=== PATIENT | male | born 1955 | race Caucasian/White ===

== ENCOUNTER 2018-09-09 20:47 | Inpatient (IN) | payer MEDICARE, OTHER ==
[2018-09-09] MEDS ORDERED: APAP/Codeine 300 mg/30 mg Tab PO STA (21:08)
--- NOTE | 2018-09-09 21:08 | ED Physician Chart ---
ED Chief Complaint/HPI - Patient Information Date Seen:: 09/09/18 Time Seen:: 20:40 Chief Complaint:: Agitation History of Present Illness:: onset x 3 days of agitation and hostile behavior; no report of trauma, SIs, H/As , S/T, neck pain, C/P, SOB, Abd. Pain, A/N/V/D/C, fever, chills, or urinary s/s Allergies:: Allergies Allergy/AdvReac Type Severity Reaction Status Date / Time ciprofloxacin [From Cipro] Allergy Verified 09/09/18 20:57 fluphenazine Allergy Verified 09/09/18 20:57 latex Allergy Verified 09/09/18 20:57 Historian:: Patient, EMS Review:: Nurse's Note Reviewed, Old Chart Reviewed, EMS run form Reviewed ED Review of Systems - Review of Systems General/Constitutional: No fever, No chills, No weight loss, No weakness, No diaphoresis, No edema, No loss of appetite Skin: No skin lesions, No rash, No bruising Head: No headache, No light-headedness Eyes: No loss of vision, No pain, No diplopia ENT: No earache, No nasal drainage, No sore throat, No tinnitus Neck: No neck pain, No swelling, No thyromegaly, No stiffness, No mass noted Cardio Vascular: No chest pain, No palpitations, No PND, No orthopnea, No edema Pulmonary: No SOB, No cough, No sputum, No wheezing GI: No nausea, No vomiting, No diarrhea, No pain, No melena, No hematochezia, No constipation, No hematemesis G/U: No dysuria, No frequency, No hematuria, No nacturia Musculoskeletal: No bone or joint pain, No back pain, No muscle pain Endocrine: No polyuria, No polydipsia Psychiatric: Prior psych history, Depression, Anxiety, No suicidal ideation, No homicidal ideation, No auditory hallucination, No visual hallucination Hematopoietic: No bruising, No lymphadenopathy Allergic/Immuno: No urticaria, No angioedema Neurological: No syncope, No focal symptoms, No weakness, No paresthesia, No headache, No seizure, No dizziness, No confusion, No vertigo ED Past Medical History - Past Medical History Obtainable: Yes Past Medical History: HTN, DM, Asthma/COPD, Dyslipidemia Family History: HTN Social History: Non Smoker, No Alcohol, No Drug Use, Single, Care Facility Surgical History: other (BKA) Psychiatricy History: Depression, Bipolar Medication: Reviewed Family Medical History - Family Member Mother History Unknown: Yes ED Physical Exam - Physical Examination General/Constitutional: Awake, Well-developed, well-nourished, Alert, No distress, GCS 15, Non-toxic appearing, Ambulatory Head: Atraumatic Eyes: Lids, conjuctiva normal, PERRL, EOMI Skin: Nl inspection, No rash, No skin lesions, No ecchymosis, Well hydrated, No lymphadenopathy ENMT: External ears, nose nl, TM canals nl, Nasal exam nl, Lips, teeth, gums nl , Oropharynx nl, Tonsils nl Neck: Nontender, Full ROM w/o pain, No JVD, No nuchal rigidity, No bruit, No mass, No stridor Respiratory: Nl effort/Exclusion, Clear to Auscultation, No Wheeze/Rhonchi/Rales Cardio Vascular: RRR, No murmur, gallop, rubs, NL S1 S2, Carotid/Femoral/Distal pulses equal bilaterally GI: No tenderness/rebounding/guarding, No organomegaly, No hernia, Normal BS's, Nondistended, No mass/bruits, No McBurney tenderness, Rectum exam nl : No CVA tenderness Extremities: No tenderness or effusion, Full ROM, normal strength in all extremities, No edema, Normal digits & nails Other Extremities comments:: Bilateral BKAs Neuro/Psych: Alert/oriented, DTR's symmetric, Normal sensory exam, Normal motor strength, Judgement/insight normal, Mood normal, Normal gait, No focal deficits Other Neuro/Psych comments:: + Psychomotor Agitation; no SIs; Mood/Affect: Labile Misc: Normal back, No paraspinal tenderness ED Labs/Radiology/EKG Results - Lab Results Comments:: Reviewed - EKG Interpretations EKG Time:: 21:26 Rate & Rhythm: 69; NSR Comments:: LVH; non-specific st-t changes ED Septic Shock - . Is Septic Shock (SBP<90, OR Lactate>4 mmol\L) present?: No ED Reassessment (Disposition) - Reassessment Reassessment Condition:: Improved - Diagnosis Diagnosis:: Agitation; Medical Clearance; Anemia; Psychosis; Dehydration; Bipolar Disorder - Aftercare/Follow up Instructions Aftercare/Follow-Up Instructions:: Counseled pt regarding lab results/diagnosis & need follow up, Counseled pt & family regarding lab results/diagnosis & need follow up - Patient Disposition Discharge/Transfer:: Acute Care w/in this hosp Admitted to:: [facility] Condition at Disposition:: Stable, Improved
[2018-09-09] MEDS ORDERED: APAP/Codeine 300 mg/30 mg Tab ONE (21:20)
[2018-09-09 21:35] LABS: HEMATOCRIT 30.3 % (41.0-60); HEMOGLOBIN 10.4 gm/dL (12-16); MEAN CELL VOLUME 100.4 fl (80-99); RED BLOOD COUNT 3.02 Mil/cmm (4.30-5.70)
[2018-09-09 21:36] LABS: % BASOPHILS 0.9 % (0.0-2.0); % EOSINOPHILS 4.4 % (0.0-5.0); % LYMPHOCYTES 31.3 % (20.0-50.0); % MONOCYTES 8.8 % (2.0-10.0); % NEUTROPHILS 54.6 % (40.0-80.0); MEAN CORPUSCULAR HEMOGLOBIN 34.4 pg (26.0-30.0); MEAN CORPUSCULAR HGB CONC 34.3 pg (28.0-36.0); MEAN PLATELET VOLUME 8.5 fl; PLATELET COUNT 200 Th/cmm (150-400); RED CELL DISTRIBUTION WIDTH 12.9 % (11.5-20.0)
[2018-09-09 21:38] LABS: ACETAMINOPHEN < 10.0 ug/mL (10.0-30.0); ALB/GLOB RATIO 1.4 (1.0-1.8); ALBUMIN 3.8 gm/dL (4.2-5.5); ALKALINE PHOSPHATASE 77 U/L (34-104); ANION GAP 11.4 (7.0-16.0); BILIRUBIN,TOTAL 0.3 mg/dL (0.3-1.0); BUN - UREA NITROGEN 50 mg/dL (7-25); CALCIUM SERUM 9.3 mg/dL (8.6-10.3); CARBON DIOXIDE 26.7 mEq/L (21.0-31.0); CHLORIDE 107 mEq/L (98-107); CHOLESTEROL 111 mg/dL (<200); CREATININE - SERUM 1.5 mg/dL (0.7-1.3); GFR AFRICAN-AMERICAN > 60.0 ml/min (>90); GFR NON AFRICAN-AMERICAN 50.1 ml/min; GLUCOSE 85 mg/dL (70-105); HDL -HIGH DENSITY LIPOPROTEIN 46 mg/dL (23-92); POTASSIUM SERUM 4.1 mEq/L (3.5-5.1); SALICYLATES (ASPIRIN) < 25.0 mg/L (30.0-100.0); SGOT 21 U/L (13-39); SGPT/ALT 25 U/L (7-52); SODIUM SERUM 141 mEq/L (136-145); TOTAL PROTEIN,SERUM 6.6 gm/dL (6.0-8.3); TRIGLYCERIDES 105 mg/dL (<150)
[2018-09-09 23:05] LABS: URINE SOURCE CLEAN C
[2018-09-09 23:09] LABS: URINE BILIRUBIN NEGATIVE (NEGATIVE); URINE BLOOD NEGATIVE (NEGATIVE); URINE GLUCOSE (UA) NEGATIVE (NEGATIVE); URINE KETONE NEGATIVE (NEGATIVE); URINE LEUKOCYTE ESTERASE NEGATIVE (NEGATIVE); URINE NITRATE NEGATIVE (NEGATIVE); URINE PH 7.5 (4.6 - 8.0); URINE PROTEIN 100 mg/dL (NEGATIVE); URINE UROBILINOGEN 0.2 E.U./dL (0.2 - 1.0)
[2018-09-09 23:17] LABS: URINE CLARITY CLEAR (CLEAR); URINE COLOR YELLOW
[2018-09-09 23:18] LABS: AMPHETAMINE URINE NEGATIVE (NEGATIVE); BARBITURATES URINE NEGATIVE (NEGATIVE); BENZODIAZEPINES QUAL URINE NEGATIVE (NEGATIVE); CANNABINOID THC POSITIVE (NEGATIVE); COCAINE METABOLITE QUAL URINE NEGATIVE (NEGATIVE); METHADONE URINE NEGATIVE (NEGATIVE); METHAMPHETAMINES QUAL URINE NEGATIVE (NEGATIVE); OPIATES (MORPHINE) QUAL. URINE NEGATIVE (NEGATIVE); PHENCYCLIDINE (PCP) URINE NEGATIVE (NEGATIVE); TRICYCLICS (TCA) QUAL. URINE NEGATIVE (NEGATIVE)
[2018-09-09 23:20] LABS: URINE BACTERIA NONE SEEN /hpf (NONE SEEN); URINE EPITHELIAL CELLS RARE /lpf (FEW); URINE MICROSCOPIC INDICATED? YES; URINE RBC NONE SEEN /hpf (0-5); URINE WBC 0-2 /hpf (0-5)
[2018-09-10 01:43] VITALS: BP 121/93
[2018-09-10] MEDS ORDERED: Magnesium Hydroxide (MOM) 30 mL UDC GT PRN (03:27)
[2018-09-10] MEDS ORDERED: Fleet Enema 135 mL RC PRN (03:27)
[2018-09-10] MEDS ORDERED: Non-Formulary Item 1 EA (Ferrous Sulfate [Ferosul] 7.5 ML) GT SCH (09:00)
[2018-09-10] MEDS ORDERED: DICLOFENAC 0.1% LEFT EYE SCH (09:00)
[2018-09-10] MEDS: Multivitamin w/ Minerals Tab GT SCH (09:31)
[2018-09-10] MEDS: Saline 0.65% Nasal Spray NS SCH ×2 (09:32→17:06)
[2018-09-10] MEDS: Prednisolone 1% Ophth Susp 5 mL Bottle LEFT EYE SCH ×4 (11:00→21:33)
--- NOTE | 2018-09-10 12:19 | Psychiatric Evaluation ---
DATE OF SERVICE: 09/10/2018 IDENTIFYING DATA: The patient is a 63-year-old male, resident of [facility]. Information obtained by directly interviewing the patient as well as reviewing the admission papers and they are reliable. JUSTIFICATION OF HOSPITALIZATION: The patient is admitted here on a voluntary basis in view of his acute agitation and aggressive behavior. CHIEF COMPLAINT: "I don't care." HISTORY OF PRESENT ILLNESS: This patient is resident of the [facility] and is reported to have been diagnosed to have bipolar disorder and has been lately having acute mood swings and has been screaming and yelling and has been verbally abusive towards the staff members and the patient could not be contained at a lower level of care and hence the patient has been referred over here for further stabilization, tried to interview the patient. The patient has been screaming and yelling and the patient is reported to have multiple medical problems such as diabetes mellitus, hypertension, bilateral below-knee amputation and COPD. The patient during the interview has been stating that he is not able to sleep and people are bothering him and he needs to be left alone. PAST PSYCHIATRIC HISTORY: Details are not known. MEDICAL HISTORY: Physical examination is requested to be done by Dr. Baeza. SUBSTANCE ABUSE HISTORY: None. PHYSICAL OR SEXUAL ABUSE HISTORY: None. LEGAL PROBLEMS: None at this time. STRENGTH AND ASSETS: The patient is admitted over here for stabilization. MENTAL STATUS EXAMINATION: The patient is a 63-year-old male, looking his stated age, resting in bed, superficially cooperative. Eye contact is poor. Mood is noted to be irritable. Affect is constricted. Insight and judgment at this time are very much impaired. Impulse control is very poor. Coping skills are noted to very poor. The patient is paranoid at this time and having acute mood swings. The patient is screaming and yelling. The patient is reported to not be contained at a lower level of care and hence the patient has to be referred over here for stabilization. Past psychiatric history is reported to have been significant for hospitalization, but the patient is not giving any details. The patient is alert and oriented to time, place, person and situation. The patient's insight and judgment, however, are noted to be very much impaired. DIAGNOSTIC IMPRESSION: AXIS I: Bipolar disorder mixed with psychotic symptoms. AXIS II: None. AXIS III: As per Dr. Baeza. IMMEDIATE TREATMENT PLAN: The patient is going to be observed on inpatient unit, provided with supportive psychotherapy. The patient is going to be closely monitored and encouraged to participate in the groups and verbalize the concerns. Once stabilized, the patient is going to be discharged to the [facility] to be followed up on an outpatient basis. [facility]# [id number]
--- NOTE | 2018-09-10 14:17 | History and Physical ---
History of Present Illness - HPI Chief Complaint: agitation HPI: This is a 63-year old male who is a [facility] resident admitted to [facility] due to agitation. Vital Signs: Last Vital Signs Temp 97.6 F 09/10/18 06:58 Pulse 66 09/10/18 09:30 Resp 20 09/10/18 06:58 BP 139/71 09/10/18 09:30 Pulse Ox 98 09/10/18 06:58 Past Medical History Other History: HTN, DM, asthma, COPD, and dyslipidemia - Past Surgical History Past Surgical History: Other (b bka) Family Medical History - Family Member Mother History Unknown: Yes Social History Smoke: No Alcohol: None Drugs: None Lives: Retirement - Medications Home Medications: Home Medication Medication Instructions Recorded Type Amlodipine Besylate 5 mg GT DAILY 09/09/18 History Bisacodyl [Dulcolax 10 Mg Supp] 10 mg RC DAILY PRN 09/09/18 History Citalopram Hydrobromide 10 mg GT DAILY 09/09/18 History [Citalopram HBr] Diphenhydramine HCL [Benadryl] 50 mg GT HS PRN 09/09/18 History Ferrous Sulfate [Ferosul] 7.5 ml GT DAILY 09/09/18 History Fleet Enema 135 ml RC DAILY PRN 09/09/18 History Magnesium Hydroxide [Milk of 30 ml GT HS PRN 09/09/18 History Magnesia] Melatonin 5 mg GT HS 09/09/18 History Mirtazapine 7.5 mg GT HS 09/09/18 History Multivitamin w/ Minerals 1 tab GT DAILY 09/09/18 History [Theragran M] Nepafenac [Ilevro] 1 drop LEFT EYE DAILY 09/09/18 History Ofloxacin 1 drop LEFT EYE QID 09/09/18 History Omeprazole Magnesium [Prilosec Otc] 20 mg GT QAM 09/09/18 History Polyvinyl Alcohol [Artificial 2 drop EACH EYE Q6H PRN 09/09/18 History Tears] Prednisolone Acetate/Pf 1 drop LEFT EYE QID 09/09/18 History [Prednisolone Acet 1% Eye Drop] Sodium Chloride [[place] 2 spray NS BID 09/09/18 History Pharmacy Saline Nasal [place] 44 ] risperiDONE [Risperdal] 1 mg GT BID 09/09/18 History - Allergies Allergies/Adverse Reactions: Allergies Allergy/AdvReac Type Severity Reaction Status Date / Time ciprofloxacin [From Cipro] Allergy Verified 09/09/18 20:57 fluphenazine Allergy Verified 09/09/18 20:57 latex Allergy Verified 09/09/18 20:57 Review of Systems - Review of Systems Constitutional: Report: No Significant Eyes: Report: No Significant Respiratory: Report: No Significant Cardiovascular: Report: No Significant Neurological: Report: No Significant Physical Exam - Physical Exam HEENT: Report: Ears Nose Throat within normal limits Neck: Report: Within normal limits Cardiovascular Systems: Report: +s1/s2 noted, Regular, Rate and Rhythm Respiratory: Report: Breath Sounds are within normal limits, Clear to Auscultation of lung garcia Abdomen: Report: Non-tender to palpation Skin: Report: Warm, Dry Neuro/Psych: Report: Depressed affect - Lab Results All Lab Results last 24 hours: Laboratory Results - last 24 hr 09/09/18 09/09/18 09/09/18 21:15 21:15 21:15 WBC 5.0 RBC 3.02 L Hgb 10.4 L Hct 30.3 L MCV 100.4 H MCH 34.4 H MCHC Differential 34.3 RDW 12.9 Plt Count 200 MPV 8.5 Neutrophils % 54.6 Lymphocytes % 31.3 Monocytes % 8.8 Eosinophils % 4.4 Basophils % 0.9 Sodium 141 Potassium 4.1 Chloride 107 Carbon Dioxide 26.7 Anion Gap 11.4 BUN 50 H Creatinine 1.5 H Est GFR ( Amer) > 60.0 Est GFR (Non-Af Amer) 50.1 BUN/Creatinine Ratio 33.3 Glucose 85 Calcium 9.3 Total Bilirubin 0.3 AST 21 ALT 25 Alkaline Phosphatase 77 Troponin I Total Protein 6.6 Albumin 3.8 L Globulin 2.8 Albumin/Globulin Ratio 1.4 Triglycerides 105 Cholesterol 111 LDL Cholesterol Direct 54 L HDL Cholesterol 46 TSH 1.94 Urine Source Urine Color Urine Clarity Urine pH Ur Specific [place] Urine Protein Urine Glucose (UA) Urine Ketones Urine Blood Urine Nitrate Urine Bilirubin Urine Urobilinogen Ur Leukocyte Esterase Urine RBC Urine WBC Ur Epithelial Cells Urine Bacteria Salicylates < 25.0 L Urine Opiates Screen Urine Methadone Screen Acetaminophen < 10.0 L Ur Barbiturates Screen Ur Tricyclics Screen Ur Phencyclidine Scrn Amphetamines Screen U Methamphetamines Scrn U Benzodiazepines Scrn U Cocaine Metab Screen U Cannabinoids Screen Ethyl Alcohol < 10 09/09/18 09/09/18 09/09/18 21:15 22:30 22:30 WBC RBC Hgb Hct MCV MCH MCHC Differential RDW Plt Count MPV Neutrophils % Lymphocytes % Monocytes % Eosinophils % Basophils % Sodium Potassium Chloride Carbon Dioxide Anion Gap BUN Creatinine Est GFR ( Amer) Est GFR (Non-Af Amer) BUN/Creatinine Ratio Glucose Calcium Total Bilirubin AST ALT Alkaline Phosphatase Troponin I 0.02 Total Protein Albumin Globulin Albumin/Globulin Ratio Triglycerides Cholesterol LDL Cholesterol Direct HDL Cholesterol TSH Urine Source CLEAN C Urine Color YELLOW Urine Clarity CLEAR Urine pH 7.5 Ur Specific [place] 1.020 Urine Protein 100 H Urine Glucose (UA) NEGATIVE Urine Ketones NEGATIVE Urine Blood NEGATIVE Urine Nitrate NEGATIVE Urine Bilirubin NEGATIVE Urine Urobilinogen 0.2 Ur Leukocyte Esterase NEGATIVE Urine RBC NONE SEEN Urine WBC 0-2 Ur Epithelial Cells RARE Urine Bacteria NONE SEEN Salicylates Urine Opiates Screen NEGATIVE Urine Methadone Screen NEGATIVE Acetaminophen Ur Barbiturates Screen NEGATIVE Ur Tricyclics Screen NEGATIVE Ur Phencyclidine Scrn NEGATIVE Amphetamines Screen NEGATIVE U Methamphetamines Scrn NEGATIVE U Benzodiazepines Scrn NEGATIVE U Cocaine Metab Screen NEGATIVE U Cannabinoids Screen POSITIVE H Ethyl Alcohol - Assessment Assessment: HTN DM asthma COPD b bka dyslipidemia - Plan Plan: low fat diet monitor glucose closely fall precautions continue current orders
[2018-09-10] MEDS ORDERED: Non-Formulary Item 1 EA (Melatonin [Melatonin] 5 MG) GT SCH (21:00)
[2018-09-11] MEDS: Pantoprazole 40 mg/Packet GT SCH (06:59)
[2018-09-11] MEDS: Ferrous Sulfate 300 MG/5 ML UDC GT SCH (10:13)
[2018-09-11] MEDS: Multivitamin w/ Minerals Tab GT SCH (10:14)
[2018-09-11] MEDS: Prednisolone 1% Ophth Susp 5 mL Bottle LEFT EYE SCH ×4 (10:18→20:29)
[2018-09-11] MEDS: Saline 0.65% Nasal Spray NS SCH ×2 (10:19→17:05)
--- NOTE | 2018-09-11 13:48 | Internal Medicine Prog Note ---
Internal Medicine Subjective - Subjective Service Date: 09/11/18 Patient seen and examined:: with staff Patient is:: awake, verbal Per staff patient has:: tolerating meds Internal Medicine Objective - Results Result Diagrams: 09/09/18 21:15 09/09/18 21:15 Recent Labs: Laboratory Last Values WBC 5.0 Th/cmm (4.8-10.8) 09/09/18 21:15 RBC 3.02 Mil/cmm (4.30-5.70) L 09/09/18 21:15 Hgb 10.4 gm/dL (12-16) L 09/09/18 21:15 Hct 30.3 % (41.0-60) L 09/09/18 21:15 MCV 100.4 fl (80-99) H 09/09/18 21:15 MCH 34.4 pg (26.0-30.0) H 09/09/18 21:15 MCHC Differential 34.3 pg (28.0-36.0) 09/09/18 21:15 RDW 12.9 % (11.5-20.0) 09/09/18 21:15 Plt Count 200 Th/cmm (150-400) 09/09/18 21:15 MPV 8.5 fl 09/09/18 21:15 Neutrophils % 54.6 % (40.0-80.0) 09/09/18 21:15 Lymphocytes % 31.3 % (20.0-50.0) 09/09/18 21:15 Monocytes % 8.8 % (2.0-10.0) 09/09/18 21:15 Eosinophils % 4.4 % (0.0-5.0) 09/09/18 21:15 Basophils % 0.9 % (0.0-2.0) 09/09/18 21:15 Sodium 141 mEq/L (136-145) 09/09/18 21:15 Potassium 4.1 mEq/L (3.5-5.1) 09/09/18 21:15 Chloride 107 mEq/L (98-107) 09/09/18 21:15 Carbon Dioxide 26.7 mEq/L (21.0-31.0) 09/09/18 21:15 Anion Gap 11.4 (7.0-16.0) 09/09/18 21:15 BUN 50 mg/dL (7-25) H 09/09/18 21:15 Creatinine 1.5 mg/dL (0.7-1.3) H 09/09/18 21:15 Est GFR ( Amer) > 60.0 ml/min (>90) 09/09/18 21:15 Est GFR (Non-Af Amer) 50.1 ml/min 09/09/18 21:15 BUN/Creatinine Ratio 33.3 09/09/18 21:15 Glucose 85 mg/dL (70-105) 09/09/18 21:15 Calcium 9.3 mg/dL (8.6-10.3) 09/09/18 21:15 Total Bilirubin 0.3 mg/dL (0.3-1.0) 09/09/18 21:15 AST 21 U/L (13-39) 09/09/18 21:15 ALT 25 U/L (7-52) 09/09/18 21:15 Alkaline Phosphatase 77 U/L (34-104) 09/09/18 21:15 Troponin I 0.02 ng/mL (0.01-0.05) 09/09/18 21:15 Total Protein 6.6 gm/dL (6.0-8.3) 09/09/18 21:15 Albumin 3.8 gm/dL (4.2-5.5) L 09/09/18 21:15 Globulin 2.8 gm/dL 09/09/18 21:15 Albumin/Globulin Ratio 1.4 (1.0-1.8) 09/09/18 21:15 Triglycerides 105 mg/dL (<150) 09/09/18 21:15 Cholesterol 111 mg/dL (<200) 09/09/18 21:15 LDL Cholesterol Direct 54 mg/dL (75-193) L 09/09/18 21:15 HDL Cholesterol 46 mg/dL (23-92) 09/09/18 21:15 TSH 1.94 uIU/ml (0.34-5.60) 09/09/18 21:15 Urine Source CLEAN C 09/09/18 22:30 Urine Color YELLOW 09/09/18 22:30 Urine Clarity CLEAR (CLEAR) 09/09/18 22:30 Urine pH 7.5 (4.6 - 8.0) 09/09/18 22:30 Ur Specific [place] 1.020 (1.005-1.030) 09/09/18 22:30 Urine Protein 100 mg/dL (NEGATIVE) H 09/09/18 22:30 Urine Glucose (UA) NEGATIVE mg/dL (NEGATIVE) 09/09/18 22:30 Urine Ketones NEGATIVE mg/dL (NEGATIVE) 09/09/18 22:30 Urine Blood NEGATIVE (NEGATIVE) 09/09/18 22:30 Urine Nitrate NEGATIVE (NEGATIVE) 09/09/18 22: Urine Bilirubin NEGATIVE (NEGATIVE) 09/09/18 22:30 Urine Urobilinogen 0.2 E.U./dL (0.2 - 1.0) 09/09/18 22:30 Ur Leukocyte Esterase NEGATIVE (NEGATIVE) 09/09/18: Urine RBC NONE SEEN /hpf (0-5) 09/09/18 22:30 Urine WBC 0-2 /hpf (0-5) 09/09/18 22:30 Ur Epithelial Cells RARE /lpf (FEW) 09/09/18 22:30 Urine Bacteria NONE SEEN /hpf (NONE SEEN) 09/09/18 22:30 Salicylates < 25.0 mg/L (30.0-100.0) L 09/09/18 21:15 Urine Opiates Screen NEGATIVE (NEGATIVE) 09/09/18 22:30 Urine Methadone Screen NEGATIVE (NEGATIVE) 09/09/18 22:30 Acetaminophen < 10.0 ug/mL (10.0-30.0) L 09/09/18 21:15 Ur Barbiturates Screen NEGATIVE (NEGATIVE) 09/09/18 22:30 Ur Tricyclics Screen NEGATIVE (NEGATIVE) 09/09/18 22:30 Ur Phencyclidine Scrn NEGATIVE (NEGATIVE) 09/09/18 22:30 Amphetamines Screen NEGATIVE (NEGATIVE) 09/09/18 22:30 U Methamphetamines Scrn NEGATIVE (NEGATIVE) 09/09/18 22:30 U Benzodiazepines Scrn NEGATIVE (NEGATIVE) 09/09/18 22:30 U Cocaine Metab Screen NEGATIVE (NEGATIVE) 09/09/18 22:30 U Cannabinoids Screen POSITIVE (NEGATIVE) H 09/09/18 22:30 Ethyl Alcohol < 10 mg/dL (0-10) 09/09/18 21:15 - Physical Exam Vitals and I&O: Vital Signs Temp 98.2 F 09/10/18 20:21 Pulse 76 09/11/18 10:16 Resp 20 09/11/18 08:00 BP 126/76 09/11/18 10:16 Pulse Ox 97 09/10/18 20:21 Intake & Output 09/10/18 09/11/18 09/11/18 18:59 06:59 18:59 Intake Total 1100 480 Output Total 1 Balance 1100 479 Intake: Oral 1100 480 Output: Urine/Stool Mix 1 Other: # Voids 4 1 # Bowel Movements 1 1 Active Medications: Current Medications Acetaminophen (Tylenol 650mg/20.3ml Suspension) 650 mg GT Q4HR PRN PRN Reason: Mild Pain 1-3/ Temp above 100 Stop: 11/09/18 01:49 Last Admin: 09/11/18 07:06 Dose: 650 mg Amlodipine Besylate (Norvasc) 5 mg GT DAILY [facility] Stop: 11/09/18 08:59 Last Admin: 09/11/18 10:16 Dose: 5 mg Artificial Tears (Artificial Tears Ophth Soln) 2 drop EACH EYE Q6H PRN PRN Reason: DRY EYES Stop: 11/09/18 03:26 Bisacodyl (Dulcolax 10 Mg Supp) 10 mg RC DAILY PRN PRN Reason: Constipation Stop: 11/09/18 03:26 Ciprofloxacin (Cipro 0.3% Ophth Soln) 1 drop LEFT EYE QID [facility] Stop: 09/14/19 23:59 Last Admin: 09/11/18 10:18 Dose: 1 drop Citalopram Hydrobromide (Celexa) 10 mg GT DAILY [facility] Stop: 11/09/18 10:59 Last Admin: 09/11/18 10:13 Dose: 10 mg Diclofenac Sodium (Voltaren) 1 drop LEFT EYE QID [facility] Stop: 09/14/19 23:59 Diphenhydramine HCl (Benadryl) 50 mg GT HS PRN PRN Reason: Itching Stop: 11/09/18 03:26 Ferrous Sulfate (Iron) 300 mg GT DAILY [facility] Stop: 11/10/18 08:59 Last Admin: 09/11/18 10:13 Dose: 300 mg Lorazepam (Ativan) 0.5 mg GT Q4HR PRN; Protocol PRN Reason: Anxiety Stop: 10/10/18 01:49 Magnesium Hydroxide (Milk Of Magnesia) 30 ml GT HS PRN PRN Reason: Constipation Stop: 11/09/18 03:26 Mirtazapine (Remeron) 7.5 mg GT HS [facility] Stop: 11/09/18 20:59 Last Admin: 09/10/18 21:18 Dose: 7.5 mg Pantoprazole Sodium (Protonix) 40 mg GT QDAC [facility] Stop: 11/10/18 07:29 Last Admin: 09/11/18 06:59 Dose: 40 mg Prednisolone Acetate (Pred Forte 1% Ophth Susp) 1 drop LEFT EYE QID [facility] Stop: 11/09/18 08:59 Last Admin: 09/11/18 10:18 Dose: 1 drop Risperidone (Risperdal) 1 mg GT BID [facility]; Protocol Stop: 11/09/18 08:59 Last Admin: 09/11/18 10:14 Dose: 1 mg Sodium Chloride ([place] Nasal [place]) 2 spr NS BID [facility] Stop: 11/09/18 08:59 Last Admin: 09/11/18 10:19 Dose: 2 spr Sodium Phosphate (Fleet Enema) 135 ml RC DAILY PRN PRN Reason: Constipation Stop: 11/09/18 03:26 Zolpidem Tartrate (Ambien) 5 mg GT HS PRN PRN Reason: Insomnia Stop: 11/09/18 01:49 Last Admin: 09/10/18 21:18 Dose: 5 mg General: alert HEENT: NC/AT, PERRLA Neck: Supple Lungs: CTAB Cardiovascular: RRR Abdomen: soft, non-tender, non-distended Neurological: alert - Procedures Procedures: Procedures Procedure Code Date STELLA MUSC/FASCIA 20 SQ CM/< 98278 08/27/13 OTHER FASCIECTOMY 83.44 08/27/13 Internal Medicine Assmt/Plan - Assessment Assessment: HTN DM asthma COPD b bka dyslipidemia - Plan Plan: low fat diet monitor glucose closely fall precautions continue current orders
[2018-09-11] MEDS: Polyvinyl Alcohol Ophth Soln 15 mL Bottle EACH EYE PRN (17:12)
--- NOTE | 2018-09-11 20:22 | Consultation ---
DATE OF CONSULTATION: 09/11/2018 REFERRING PHYSICIAN: Patricia Pringle M.D. TYPE OF CONSULTATION: Psychology. HISTORY OF PRESENT ILLNESS: The patient is a 63-year-old male. The patient is a resident of [facility]. The following is by record review and by the patient's self report. The patient is being admitted due to acute agitation and aggressive behavior. The staff at the patient's facility report that he has been having acute mood swings with screaming and yelling episodes as well as being verbally abusive towards the staff. The patient was unable to be contained in a lower level of care and his behavior had become uncontrollable. Therefore, the patient was transferred here for stabilization. The patient at the time of the clinical interview stated he is not experiencing any suicidal ideation, plan or intention and that he did not care to continue to answer any other clinical interview questions. PAST MEDICAL HISTORY: Please see history and physical by Dr. Baeza. PAST PSYCHIATRIC HISTORY: According to record review, the patient has a history of bipolar disorder. The patient is under the care of a psychiatrist at his placement. SUBSTANCE ABUSE HISTORY: The patient did not answer these questions. PSYCHOSOCIAL HISTORY: The patient did not answer questions about occupational or educational history or mandaeism affiliation. The patient did not answer questions about current legal problems or history of physical or sexual abuse. The patient did not respond to the questions about marital status, family relationships, family involvement, or others in his care. MENTAL STATUS EXAMINATION: The patient appears to be his stated age. The patient's attitude is superficially cooperative. Eye contact is poor. Speech is loud, pressured. Mood is irritable. Affect is constricted. Thought process shows to be concrete and argumentative. The patient denied any suicidal ideation, plan, or intention. The patient has been having acute mood swings as well as out of control behavior. There is some evidence of paranoid ideation. The patient did not answer questions about experiencing auditory or visual hallucinations. Impulse control is impaired. Concentration is poor. Sensorium is alert and oriented to person and place. The patient did not participate in the memory assessment. The patient did not participate in any interpretation of proverbs. Insight is impaired. Judgment is impaired. DIAGNOSTIC IMPRESSION: AXIS I: History of bipolar disorder mixed with psychotic symptoms. AXIS II: Deferred. AXIS III: Per Dr. Baeza. TREATMENT PLAN: The patient has been seen by Dr. Pringle for psychiatric evaluation and for the management of the patient's psychotropic medications. We will provide supportive psychotherapy to include reality orientation, differentiation, and integration. We will provide de-escalation and limit setting as well as boundary awareness and definitions. We will provide stress management to assist the patient in increasing his frustration tolerance. We will encourage the patient to be able to demonstrate emotional and self-regulation prior to his discharge. We will provide coping strategies for phase of life issues as well as for chronic severe mental illness. We will provide motivational enhancement for the patient to become compliant and stay compliant with all aspects of his care and treatment. Thank you, Dr. Pringle, for this consult and the opportunity to participate in this patient's care. JOB# [id number] JOSE ALEJANDRO
[2018-09-12] MEDS: Pantoprazole 40 mg/Packet GT SCH (06:46)
[2018-09-12] MEDS: Ferrous Sulfate 300 MG/5 ML UDC GT SCH (08:26)
[2018-09-12] MEDS: KETOROLAC 0.5% LEFT EYE SCH ×4 (08:27→20:29)
[2018-09-12] MEDS: Multivitamin w/ Minerals Tab GT SCH (08:27)
[2018-09-12] MEDS: OPTH LEFT EYE SCH ×4 (08:27→20:29)
[2018-09-12] MEDS: Prednisolone 1% Ophth Susp 5 mL Bottle LEFT EYE SCH ×4 (08:28→20:30)
[2018-09-12] MEDS: Saline 0.65% Nasal Spray NS SCH ×2 (08:28→16:41)
--- NOTE | 2018-09-12 09:33 | Progress Notes ---
DATE: 09/11/2018 PSYCHIATRIC PROGRESS NOTE SUBJECTIVE: Staff was spoken to. The patient is interviewed. Mood is noted to be irritable. Affect is constricted. Insight 9and judgment, at this time, are noted to be still impaired. Impulse control is noted to be poor. Coping skills are also noted to be very poor. The patient is demanding that he should not be in the hospital and he should be discharged. Coping skills are noted to be extremely poor. The patient tends to scream and yell when he does not get his way. ASSESSMENT: The patient is still grossly psychotic. PLAN: Continue the patient with supportive therapy. I encouraged the patient to verbalize the concerns rather than to act out. JOB# [id number]
--- NOTE | 2018-09-12 14:42 | Internal Medicine Prog Note ---
Internal Medicine Subjective - Subjective Service Date: 09/12/18 Patient is:: awake, verbal Per staff patient has:: tolerating meds Internal Medicine Objective - Results Result Diagrams: 09/09/18 21:15 09/09/18 21:15 Recent Labs: Laboratory Last Values WBC 5.0 Th/cmm (4.8-10.8) 09/09/18 21:15 RBC 3.02 Mil/cmm (4.30-5.70) L 09/09/18 21:15 Hgb 10.4 gm/dL (12-16) L 09/09/18 21:15 Hct 30.3 % (41.0-60) L 09/09/18 21:15 MCV 100.4 fl (80-99) H 09/09/18 21:15 MCH 34.4 pg (26.0-30.0) H 09/09/18 21:15 MCHC Differential 34.3 pg (28.0-36.0) 09/09/18 21:15 RDW 12.9 % (11.5-20.0) 09/09/18 21:15 Plt Count 200 Th/cmm (150-400) 09/09/18 21:15 MPV 8.5 fl 09/09/18 21:15 Neutrophils % 54.6 % (40.0-80.0) 09/09/18 21:15 Lymphocytes % 31.3 % (20.0-50.0) 09/09/18 21:15 Monocytes % 8.8 % (2.0-10.0) 09/09/18 21:15 Eosinophils % 4.4 % (0.0-5.0) 09/09/18 21:15 Basophils % 0.9 % (0.0-2.0) 09/09/18 21:15 Sodium 141 mEq/L (136-145) 09/09/18 21:15 Potassium 4.1 mEq/L (3.5-5.1) 09/09/18 21:15 Chloride 107 mEq/L (98-107) 09/09/18 21:15 Carbon Dioxide 26.7 mEq/L (21.0-31.0) 09/09/18 21:15 Anion Gap 11.4 (7.0-16.0) 09/09/18 21:15 BUN 50 mg/dL (7-25) H 09/09/18 21:15 Creatinine 1.5 mg/dL (0.7-1.3) H 09/09/18 21:15 Est GFR ( Amer) > 60.0 ml/min (>90) 09/09/18 21:15 Est GFR (Non-Af Amer) 50.1 ml/min 09/09/18 21:15 BUN/Creatinine Ratio 33.3 09/09/18 21:15 Glucose 85 mg/dL (70-105) 09/09/18 21:15 POC Glucose 95 MG/DL (70 - 105) 09/12/18 06:26 Calcium 9.3 mg/dL (8.6-10.3) 09/09/18 21:15 Total Bilirubin 0.3 mg/dL (0.3-1.0) 09/09/18 21:15 AST 21 U/L (13-39) 09/09/18 21:15 ALT 25 U/L (7-52) 09/09/18 21:15 Alkaline Phosphatase 77 U/L (34-104) 09/09/18 21:15 Troponin I 0.02 ng/mL (0.01-0.05) 09/09/18 21:15 Total Protein 6.6 gm/dL (6.0-8.3) 09/09/18 21:15 Albumin 3.8 gm/dL (4.2-5.5) L 09/09/18 21:15 Globulin 2.8 gm/dL 09/09/18 21:15 Albumin/Globulin Ratio 1.4 (1.0-1.8) 09/09/18 21:15 Triglycerides 105 mg/dL (<150) 09/09/18 21:15 Cholesterol 111 mg/dL (<200) 09/09/18 21:15 LDL Cholesterol Direct 54 mg/dL (75-193) L 09/09/18 21:15 HDL Cholesterol 46 mg/dL (23-92) 09/09/18 21:15 TSH 1.94 uIU/ml (0.34-5.60) 09/09/18 21:15 Urine Source CLEAN C 09/09/18 22:30 Urine Color YELLOW 09/09/18 22:30 Urine Clarity CLEAR (CLEAR) 09/09/18 22:30 Urine pH 7.5 (4.6 - 8.0) 09/09/18 22:30 Ur Specific [place] 1.020 (1.005-1.030) 09/09/18 22:30 Urine Protein 100 mg/dL (NEGATIVE) H 09/09/18 22:30 Urine Glucose (UA) NEGATIVE mg/dL (NEGATIVE) 09/09/18 22:30 Urine Ketones NEGATIVE mg/dL (NEGATIVE) 09/09/18 22:30 Urine Blood NEGATIVE (NEGATIVE) 09/09/18 22:30 Urine Nitrate NEGATIVE (NEGATIVE) 09/09/18 22:30 Urine Bilirubin NEGATIVE (NEGATIVE) 09/09/18 22:30 Urine Urobilinogen 0.2 E.U./dL (0.2 - 1.0) 09/09/18 22:30 Ur Leukocyte Esterase NEGATIVE (NEGATIVE) 09/09/18 22:30 Urine RBC NONE SEEN /hpf (0-5) 09/09/18 22:30 Urine WBC 0-2 /hpf (0-5) 09/09/18 22:30 Ur Epithelial Cells RARE /lpf (FEW) 09/09/18 22:30 Urine Bacteria NONE SEEN /hpf (NONE SEEN) 09/09/18 22:30 Salicylates < 25.0 mg/L (30.0-100.0) L 09/09/18 21:15 Urine Opiates Screen NEGATIVE (NEGATIVE) 09/09/18 22:30 Urine Methadone Screen NEGATIVE (NEGATIVE) 09/09/18 22:30 Acetaminophen < 10.0 ug/mL (10.0-30.0) L 09/09/18 21:15 Ur Barbiturates Screen NEGATIVE (NEGATIVE) 09/09/18 22:30 Ur Tricyclics Screen NEGATIVE (NEGATIVE) 09/09/18 22:30 Ur Phencyclidine Scrn NEGATIVE (NEGATIVE) 09/09/18 22:30 Amphetamines Screen NEGATIVE (NEGATIVE) 09/09/18 22:30 U Methamphetamines Scrn NEGATIVE (NEGATIVE) 09/09/18 22:30 U Benzodiazepines Scrn NEGATIVE (NEGATIVE) 09/09/18 22:30 U Cocaine Metab Screen NEGATIVE (NEGATIVE) 09/09/18 22:30 U Cannabinoids Screen POSITIVE (NEGATIVE) H 09/09/18 22:30 Ethyl Alcohol < 10 mg/dL (0-10) 09/09/18 21:15 RPR NONREACTIVE (NONREACTIVE) 09/09/18 21:15 - Physical Exam Vitals and I&O: Vital Signs Temp 98.3 F 09/11/18 14:38 Pulse 76 09/12/18 08:26 Resp 20 09/11/18 14:38 BP 126/76 09/12/18 08:26 Pulse Ox 97 09/11/18 14:38 Intake & Output 09/11/18 09/12/18 09/12/18 18:59 06:59 18:59 Intake Total 1100 Balance 1100 Intake: Oral 1100 Other: # Voids 3 # Bowel Movements 1 Active Medications: Current Medications Acetaminophen (Tylenol 650mg/20.3ml Suspension) 650 mg GT Q4HR PRN PRN Reason: Mild Pain 1-3/ Temp above 100 Stop: 11/09/18 01:49 Last Admin: 09/12/18 01:50 Dose: 650 mg Amlodipine Besylate (Norvasc) 5 mg GT DAILY [facility] Stop: 11/09/18 08:59 Last Admin: 09/12/18 08:26 Dose: 5 mg Artificial Tears (Artificial Tears Ophth Soln) 2 drop EACH EYE Q6H PRN PRN Reason: DRY EYES Stop: 11/09/18 03:26 Last Admin: 09/11/18 17:12 Dose: 2 drop Bisacodyl (Dulcolax 10 Mg Supp) 10 mg RC DAILY PRN PRN Reason: Constipation Stop: 11/09/18 03:26 Ciprofloxacin (Cipro 0.3% Ophth Soln) 1 drop LEFT EYE QID [facility] Stop: 09/14/19 23:59 Last Admin: 09/12/18 12:43 Dose: 1 drop Citalopram Hydrobromide (Celexa) 10 mg GT DAILY [facility] Stop: 11/09/18 10:59 Last Admin: 09/12/18 08:27 Dose: 10 mg Diphenhydramine HCl (Benadryl) 50 mg GT HS PRN PRN Reason: Itching Stop: 11/09/18 03:26 Ferrous Sulfate (Iron) 300 mg GT DAILY [facility] Stop: 11/10/18 08:59 Last Admin: 09/12/18 08:26 Dose: 300 mg Lorazepam (Ativan) 0.5 mg GT Q4HR PRN; Protocol PRN Reason: Anxiety Stop: 10/10/18 01:49 Magnesium Hydroxide (Milk Of Magnesia) 30 ml GT HS PRN PRN Reason: Constipation Stop: 11/09/18 03:26 Mirtazapine (Remeron) 7.5 mg GT HS [facility] Stop: 11/09/18 20:59 Last Admin: 09/11/18 20:30 Dose: 7.5 mg Miscellaneous (Misc Eent Product) 1 appl LEFT EYE QID [facility] Stop: 09/14/19 23:59 Last Admin: 09/12/18 12:44 Dose: 1 appl Mupirocin (Bactroban Oint) 1 appl NS BID [facility] Stop: 09/16/18 17:01 Last Admin: 09/12/18 08:28 Dose: 1 appl Pantoprazole Sodium (Protonix) 40 mg GT QDAC [facility] Stop: 11/10/18 07:29 Last Admin: 09/12/18 06:46 Dose: 40 mg Prednisolone Acetate (Pred Forte 1% Ophth Susp) 1 drop LEFT EYE QID NI Stop: 11/09/18 08:59 Last Admin: 09/12/18 12:44 Dose: 1 drop Risperidone (Risperdal) 1 mg GT BID [facility]; Protocol Stop: 11/09/18 08:59 Last Admin: 09/12/18 08:27 Dose: 1 mg Sodium Chloride ([place] Nasal [place]) 2 spr NS BID [facility] Stop: 11/09/18 08:59 Last Admin: 09/12/18 08:28 Dose: 2 spr Sodium Phosphate (Fleet Enema) 135 ml RC DAILY PRN PRN Reason: Constipation Stop: 11/09/18 03:26 Zolpidem Tartrate (Ambien) 5 mg GT HS PRN PRN Reason: Insomnia Stop: 11/09/18 01:49 Last Admin: 09/10/18 21:18 Dose: 5 mg General: alert HEENT: NC/AT, PERRLA Neck: Supple Lungs: CTAB Cardiovascular: RRR Abdomen: soft, non-tender, non-distended Neurological: alert - Procedures Procedures: Procedures Procedure Code Date STELLA MUSC/FASCIA 20 SQ CM/< 07408 08/27/13 OTHER FASCIECTOMY 83.44 08/27/13 Internal Medicine Assmt/Plan - Assessment Assessment: HTN DM asthma COPD b bka dyslipidemia - Plan Plan: low fat diet monitor glucose closely fall precautions continue current orders Nutritional Asmnt/Malnutr-PDOC - Dietary Evaluation Malnutrition Findings (Please click <Entered> for more info): Nutritional Asmnt/Malnutrition Start: 09/12/18 11: 02 Text: Status: Complete Freq: Protocol: Document 09/12/18 11:02 JENARO (Rec: 09/12/18 11:12 JENARO WHARTON- FNS1) Nutritional Asmnt/Malnutrition Patient General Information Diagnosis psychosis Pertinent Medical Hx/Surgical Hx HTN, DM asthma, COPD, dyslipidemia Subjective Information PT asleep at time of visit Current Diet Order/ Nutrition Support Regular Pertinent Medications Fe, MOM, protonix, fleet enema Pertinent Labs 09/09: Na 141, K 4.1, Cl 107, CO2 26.7, BUN 50, Cr 1.5, Ca 9 .3, glucose 85 Nutritional Hx/Data Height 5 ft 11 in Height (Calculated Centimeters) 180.3 Current Weight (lbs) 150 lb Weight (Calculated Kilograms) 68.0 Weight (Calculated Grams) 63972.9 Body Mass Index (BMI) 20.9 Weight Status Approriate GI Symptoms GI Symptoms None Last BM 09/11 Cultural/Ethnic/Muslim Belief unknown Usual diet at home regular Skin Integrity/Comment: Vladimir score 14 Estimated Nutritional Goals BEE in Kcals: Using Current wt Calories/Kcals/Kg 25-30kcals/kg Kcals Calculated 1700-2040kcals/day Protein: Using Current wt Protein g/k.1g/kg Protein Calculated 75g/day Fluid: ml per MD Nutritional Problem 1. Problem Problem No nutrition diagnosis at this time Intervention/Recommendation Comments Recommend continuing Regular diet Expected Outcomes/Goals Expected Outcomes/Goals PO intake >75% of meals
--- NOTE | 2018-09-12 16:52 | Progress Notes ---
DATE: 09/12/2018 SUBJECTIVE: Staff was spoken to. The patient is interviewed. Mood is noted to be irritable. Affect is constricted. Insight and judgment are noted to be still impaired. Impulse control is noted to be limited. Coping skills are noted to be limited. The patient has been having difficult time to cope with the stress. The patient is stating that he does not belong in here, he has to go back. The patient is provided with supportive therapy and encouraged to verbalize the concerns. In view of the agitation, the facility is hesitant to take him back. PLAN: To closely monitor the patient and continue the patient with the current medications and follow up. JOB# [id number]
[2018-09-13] MEDS: Pantoprazole 40 mg/Packet GT SCH (06:44)
[2018-09-13] MEDS: OPTH LEFT EYE SCH ×4 (09:34→20:13)
[2018-09-13] MEDS: KETOROLAC 0.5% LEFT EYE SCH ×4 (09:34→20:13)
[2018-09-13] MEDS: Prednisolone 1% Ophth Susp 5 mL Bottle LEFT EYE SCH ×4 (09:35→20:13)
[2018-09-13] MEDS: Multivitamin w/ Minerals Tab GT SCH (09:35)
[2018-09-13] MEDS: Saline 0.65% Nasal Spray NS SCH ×2 (09:36→16:36)
--- NOTE | 2018-09-13 11:44 | Internal Medicine Prog Note ---
Internal Medicine Subjective - Subjective Service Date: 09/13/18 Patient is:: awake, verbal Per staff patient has:: tolerating meds Internal Medicine Objective - Results Result Diagrams: 09/09/18 21:15 09/09/18 21:15 Recent Labs: Laboratory Last Values WBC 5.0 Th/cmm (4.8-10.8) 09/09/18 21:15 RBC 3.02 Mil/cmm (4.30-5.70) L 09/09/18 21:15 Hgb 10.4 gm/dL (12-16) L 09/09/18 21:15 Hct 30.3 % (41.0-60) L 09/09/18 21:15 MCV 100.4 fl (80-99) H 09/09/18 21:15 MCH 34.4 pg (26.0-30.0) H 09/09/18 21:15 MCHC Differential 34.3 pg (28.0-36.0) 09/09/18 21:15 RDW 12.9 % (11.5-20.0) 09/09/18 21:15 Plt Count 200 Th/cmm (150-400) 09/09/18 21:15 MPV 8.5 fl 09/09/18 21:15 Neutrophils % 54.6 % (40.0-80.0) 09/09/18 21:15 Lymphocytes % 31.3 % (20.0-50.0) 09/09/18 21:15 Monocytes % 8.8 % (2.0-10.0) 09/09/18 21:15 Eosinophils % 4.4 % (0.0-5.0) 09/09/18 21:15 Basophils % 0.9 % (0.0-2.0) 09/09/18 21:15 Sodium 141 mEq/L (136-145) 09/09/18 21:15 Potassium 4.1 mEq/L (3.5-5.1) 09/09/18 21:15 Chloride 107 mEq/L (98-107) 09/09/18 21:15 Carbon Dioxide 26.7 mEq/L (21.0-31.0) 09/09/18 21:15 Anion Gap 11.4 (7.0-16.0) 09/09/18 21:15 BUN 50 mg/dL (7-25) H 09/09/18 21:15 Creatinine 1.5 mg/dL (0.7-1.3) H 09/09/18 21:15 Est GFR ( Amer) > 60.0 ml/min (>90) 09/09/18 21:15 Est GFR (Non-Af Amer) 50.1 ml/min 09/09/18 21:15 BUN/Creatinine Ratio 33.3 09/09/18 21:15 Glucose 85 mg/dL (70-105) 09/09/18 21:15 POC Glucose 95 MG/DL (70 - 105) 09/12/18 06:26 Calcium 9.3 mg/dL (8.6-10.3) 09/09/18 21:15 Total Bilirubin 0.3 mg/dL (0.3-1.0) 09/09/18 21:15 AST 21 U/L (13-39) 09/09/18 21:15 ALT 25 U/L (7-52) 09/09/18 21:15 Alkaline Phosphatase 77 U/L (34-104) 09/09/18 21:15 Troponin I 0.02 ng/mL (0.01-0.05) 09/09/18 21:15 Total Protein 6.6 gm/dL (6.0-8.3) 09/09/18 21:15 Albumin 3.8 gm/dL (4.2-5.5) L 09/09/18 21:15 Globulin 2.8 gm/dL 09/09/18 21:15 Albumin/Globulin Ratio 1.4 (1.0-1.8) 09/09/18 21:15 Triglycerides 105 mg/dL (<150) 09/09/18 21:15 Cholesterol 111 mg/dL (<200) 09/09/18 21:15 LDL Cholesterol Direct 54 mg/dL (75-193) L 09/09/18 21:15 HDL Cholesterol 46 mg/dL (23-92) 09/09/18 21:15 TSH 1.94 uIU/ml (0.34-5.60) 09/09/18 21:15 Urine Source CLEAN C 09/09/18 22:30 Urine Color YELLOW 09/09/18 22:30 Urine Clarity CLEAR (CLEAR) 09/09/18 22:30 Urine pH 7.5 (4.6 - 8.0) 09/09/18 22:30 Ur Specific [place] 1.020 (1.005-1.030) 09/09/18 22:30 Urine Protein 100 mg/dL (NEGATIVE) H 09/09/18 22:30 Urine Glucose (UA) NEGATIVE mg/dL (NEGATIVE) 09/09/18 22:30 Urine Ketones NEGATIVE mg/dL (NEGATIVE) 09/09/18 22:30 Urine Blood NEGATIVE (NEGATIVE) 09/09/18 22:30 Urine Nitrate NEGATIVE (NEGATIVE) 09/09/18 22:30 Urine Bilirubin NEGATIVE (NEGATIVE) 09/09/18 22:30 Urine Urobilinogen 0.2 E.U./dL (0.2 - 1.0) 09/09/18 22:30 Ur Leukocyte Esterase NEGATIVE (NEGATIVE) 09/09/18 22:30 Urine RBC NONE SEEN /hpf (0-5) 09/09/18 22:30 Urine WBC 0-2 /hpf (0-5) 09/09/18 22:30 Ur Epithelial Cells RARE /lpf (FEW) 09/09/18 22:30 Urine Bacteria NONE SEEN /hpf (NONE SEEN) 09/09/18 22:30 Salicylates < 25.0 mg/L (30.0-100.0) L 09/09/18 21:15 Urine Opiates Screen NEGATIVE (NEGATIVE) 09/09/18 22:30 Urine Methadone Screen NEGATIVE (NEGATIVE) 09/09/18 22:30 Acetaminophen < 10.0 ug/mL (10.0-30.0) L 09/09/18 21:15 Ur Barbiturates Screen NEGATIVE (NEGATIVE) 09/09/18 22:30 Ur Tricyclics Screen NEGATIVE (NEGATIVE) 09/09/18 22:30 Ur Phencyclidine Scrn NEGATIVE (NEGATIVE) 09/09/18 22:30 Amphetamines Screen NEGATIVE (NEGATIVE) 09/09/18 22:30 U Methamphetamines Scrn NEGATIVE (NEGATIVE) 09/09/18 22:30 U Benzodiazepines Scrn NEGATIVE (NEGATIVE) 09/09/18 22:30 U Cocaine Metab Screen NEGATIVE (NEGATIVE) 09/09/18 22:30 U Cannabinoids Screen POSITIVE (NEGATIVE) H 09/09/18 22:30 Ethyl Alcohol < 10 mg/dL (0-10) 09/09/18 21:15 RPR NONREACTIVE (NONREACTIVE) 09/09/18 21:15 - Physical Exam Vitals and I&O: Vital Signs Temp 97.1 F 09/12/18 20:00 Pulse 92 09/12/18 20:00 Resp 20 09/12/18 20:00 BP 110/58 09/12/18 20:00 Pulse Ox 97 09/12/18 20:00 Intake & Output 09/12/18 09/13/18 09/13/18 18:59 06:59 18:59 Intake Total 1500 120 Balance 1500 120 Intake: Oral 1500 120 Other: # Voids 3 3 # Bowel Movements 0 Active Medications: Current Medications Acetaminophen (Tylenol 650mg/20.3ml Suspension) 650 mg GT Q4HR PRN PRN Reason: Mild Pain 1-3/ Temp above 100 Stop: 11/09/18 01:49 Last Admin: 09/12/18 01:50 Dose: 650 mg Amlodipine Besylate (Norvasc) 5 mg GT DAILY [facility] Stop: 11/09/18 08:59 Last Admin: 09/12/18 08:26 Dose: 5 mg Artificial Tears (Artificial Tears Ophth Soln) 2 drop EACH EYE Q6H PRN PRN Reason: DRY EYES Stop: 11/09/18 03:26 Last Admin: 09/11/18 17:12 Dose: 2 drop Bisacodyl (Dulcolax 10 Mg Supp) 10 mg RC DAILY PRN PRN Reason: Constipation Stop: 11/09/18 03:26 Ciprofloxacin (Cipro 0.3% Ophth Soln) 1 drop LEFT EYE QID [facility] Stop: 09/14/19 23:59 Last Admin: 09/12/18 20:28 Dose: 1 drop Citalopram Hydrobromide (Celexa) 10 mg GT DAILY [facility] Stop: 11/09/18 10:59 Last Admin: 09/12/18 08:27 Dose: 10 mg Diphenhydramine HCl (Benadryl) 50 mg GT HS PRN PRN Reason: Itching Stop: 11/09/18 03:26 Ferrous Sulfate (Iron) 300 mg GT DAILY [facility] Stop: 11/10/18 08:59 Last Admin: 09/12/18 08:26 Dose: 300 mg Lorazepam (Ativan) 0.5 mg GT Q4HR PRN; Protocol PRN Reason: Anxiety Stop: 10/10/18 01:49 Last Admin: 09/12/18 20:30 Dose: 0.5 mg Magnesium Hydroxide (Milk Of Magnesia) 30 ml GT HS PRN PRN Reason: Constipation Stop: 11/09/18 03:26 Mirtazapine (Remeron) 7.5 mg GT HS NI Stop: 11/09/18 20:59 Last Admin: 09/12/18 20:29 Dose: 7.5 mg Miscellaneous (Misc Eent Product) 1 appl LEFT EYE QID NI Stop: 09/14/19 23:59 Last Admin: 09/12/18 20:29 Dose: 1 appl Mupirocin (Bactroban Oint) 1 appl NS BID NI Stop: 09/16/18 17:01 Last Admin: 09/12/18 16:40 Dose: 1 appl Pantoprazole Sodium (Protonix) 40 mg GT QDAC [facility] Stop: 11/10/18 07:29 Last Admin: 09/13/18 06:44 Dose: 40 mg Prednisolone Acetate (Pred Forte 1% Ophth Susp) 1 drop LEFT EYE QID [facility] Stop: 11/09/18 08:59 Last Admin: 09/12/18 20:30 Dose: 1 drop Risperidone (Risperdal) 1 mg GT BID [facility]; Protocol Stop: 11/09/18 08:59 Last Admin: 09/12/18 16:40 Dose: 1 mg Sodium Chloride ([place] Nasal [place]) 2 spr NS BID [facility] Stop: 11/09/18 08:59 Last Admin: 09/12/18 16:41 Dose: 2 spr Sodium Phosphate (Fleet Enema) 135 ml RC DAILY PRN PRN Reason: Constipation Stop: 11/09/18 03:26 Zolpidem Tartrate (Ambien) 5 mg GT HS PRN PRN Reason: Insomnia Stop: 11/09/18 01:49 Last Admin: 09/12/18 20:35 Dose: 5 mg General: alert HEENT: NC/AT, PERRLA Neck: Supple Lungs: CTAB Cardiovascular: RRR Abdomen: soft, non-tender, non-distended Neurological: alert - Procedures Procedures: Procedures Procedure Code Date STELLA MUSC/FASCIA 20 SQ CM/< 94099 08/27/13 OTHER FASCIECTOMY 83.44 08/27/13 Internal Medicine Assmt/Plan - Assessment Assessment: HTN DM asthma COPD b bka dyslipidemia - Plan Plan: low fat diet monitor glucose closely fall precautions continue current orders Nutritional Asmnt/Malnutr-PDOC - Dietary Evaluation Malnutrition Findings (Please click <Entered> for more info): Nutritional Asmnt/Malnutrition Start: 09/12/18 11: 02 Text: Status: Complete Freq: Protocol: Document 09/12/18 11:02 JENARO (Rec: 09/12/18 11:12 YUNGJAMES TALAVERAN- FNS1) Nutritional Asmnt/Malnutrition Patient General Information Diagnosis psychosis Pertinent Medical Hx/Surgical Hx HTN, DM asthma, COPD, dyslipidemia Subjective Information PT asleep at time of visit Current Diet Order/ Nutrition Support Regular Pertinent Medications Fe, MOM, protonix, fleet enema Pertinent Labs 09/09: Na 141, K 4.1, Cl 107, CO2 26.7, BUN 50, Cr 1.5, Ca 9 .3, glucose 85 Nutritional Hx/Data Height 5 ft 11 in Height (Calculated Centimeters) 180.3 Current Weight (lbs) 150 lb Weight (Calculated Kilograms) 68.0 Weight (Calculated Grams) 33028.9 Body Mass Index (BMI) 20.9 Weight Status Approriate GI Symptoms GI Symptoms None Last BM 09/11 Cultural/Ethnic/Restorationist Belief unknown Usual diet at home regular Skin Integrity/Comment: Vladimir score 14 Estimated Nutritional Goals BEE in Kcals: Using Current wt Calories/Kcals/Kg 25-30kcals/kg Kcals Calculated 1700-2040kcals/day Protein: Using Current wt Protein g/k.1g/kg Protein Calculated 75g/day Fluid: ml per MD Nutritional Problem 1. Problem Problem No nutrition diagnosis at this time Intervention/Recommendation Comments Recommend continuing Regular diet Expected Outcomes/Goals Expected Outcomes/Goals PO intake >75% of meals
[2018-09-13] MEDS: Ferrous Sulfate 300 MG/5 ML UDC GT SCH (16:34)
--- NOTE | 2018-09-13 20:08 | Progress Notes ---
DATE: 09/13/2018 SUBJECTIVE: Staff was spoken to. The patient is interviewed. Mood is noted to be irritable. Affect is constricted. Insight and judgment at this time are noted to be still impaired. Impulse control is noted to be limited. The patient is screaming and yelling and stating that he should not be here in the hospital and the patient ____ and tends to test the limits whenever he does not get his way. The patient is currently on citalopram 10 mg and is also receiving the Risperdal 1 mg twice a day via the G-tube. ASSESSMENT: The patient is still impulsive. PLAN: To continue the patient with the supportive therapy and encouraged the patient to verbalize the concerns rather than to act out. JOB# [id number]
[2018-09-14] MEDS: Pantoprazole 40 mg/Packet GT SCH (06:38)
[2018-09-14] MEDS: Ferrous Sulfate 300 MG/5 ML UDC GT SCH (09:44)
[2018-09-14] MEDS: Multivitamin w/ Minerals Tab GT SCH (09:45)
[2018-09-14] MEDS: KETOROLAC 0.5% LEFT EYE SCH ×4 (09:46→20:53)
[2018-09-14] MEDS: Saline 0.65% Nasal Spray NS SCH ×2 (09:46→17:03)
[2018-09-14] MEDS: Prednisolone 1% Ophth Susp 5 mL Bottle LEFT EYE SCH ×4 (09:46→20:53)
[2018-09-14] MEDS: OPTH LEFT EYE SCH ×4 (09:46→20:53)
--- NOTE | 2018-09-14 13:01 | Internal Medicine Prog Note ---
Internal Medicine Subjective - Subjective Service Date: 09/14/18 Patient is:: awake, verbal Per staff patient has:: tolerating meds Internal Medicine Objective - Results Result Diagrams: 09/09/18 21:15 09/09/18 21:15 Recent Labs: Laboratory Last Values WBC 5.0 Th/cmm (4.8-10.8) 09/09/18 21:15 RBC 3.02 Mil/cmm (4.30-5.70) L 09/09/18 21:15 Hgb 10.4 gm/dL (12-16) L 09/09/18 21:15 Hct 30.3 % (41.0-60) L 09/09/18 21:15 MCV 100.4 fl (80-99) H 09/09/18 21:15 MCH 34.4 pg (26.0-30.0) H 09/09/18 21:15 MCHC Differential 34.3 pg (28.0-36.0) 09/09/18 21:15 RDW 12.9 % (11.5-20.0) 09/09/18 21:15 Plt Count 200 Th/cmm (150-400) 09/09/18 21:15 MPV 8.5 fl 09/09/18 21:15 Neutrophils % 54.6 % (40.0-80.0) 09/09/18 21:15 Lymphocytes % 31.3 % (20.0-50.0) 09/09/18 21:15 Monocytes % 8.8 % (2.0-10.0) 09/09/18 21:15 Eosinophils % 4.4 % (0.0-5.0) 09/09/18 21:15 Basophils % 0.9 % (0.0-2.0) 09/09/18 21:15 Sodium 141 mEq/L (136-145) 09/09/18 21:15 Potassium 4.1 mEq/L (3.5-5.1) 09/09/18 21:15 Chloride 107 mEq/L (98-107) 09/09/18 21:15 Carbon Dioxide 26.7 mEq/L (21.0-31.0) 09/09/18 21:15 Anion Gap 11.4 (7.0-16.0) 09/09/18 21:15 BUN 50 mg/dL (7-25) H 09/09/18 21:15 Creatinine 1.5 mg/dL (0.7-1.3) H 09/09/18 21:15 Est GFR ( Amer) > 60.0 ml/min (>90) 09/09/18 21:15 Est GFR (Non-Af Amer) 50.1 ml/min 09/09/18 21:15 BUN/Creatinine Ratio 33.3 09/09/18 21:15 Glucose 85 mg/dL (70-105) 09/09/18 21:15 POC Glucose 95 MG/DL (70 - 105) 09/12/18 06:26 Calcium 9.3 mg/dL (8.6-10.3) 09/09/18 21:15 Total Bilirubin 0.3 mg/dL (0.3-1.0) 09/09/18 21:15 AST 21 U/L (13-39) 09/09/18 21:15 ALT 25 U/L (7-52) 09/09/18 21:15 Alkaline Phosphatase 77 U/L (34-104) 09/09/18 21:15 Troponin I 0.02 ng/mL (0.01-0.05) 09/09/18 21:15 Total Protein 6.6 gm/dL (6.0-8.3) 09/09/18 21:15 Albumin 3.8 gm/dL (4.2-5.5) L 09/09/18 21:15 Globulin 2.8 gm/dL 09/09/18 21:15 Albumin/Globulin Ratio 1.4 (1.0-1.8) 09/09/18 21:15 Triglycerides 105 mg/dL (<150) 09/09/18 21:15 Cholesterol 111 mg/dL (<200) 09/09/18 21:15 LDL Cholesterol Direct 54 mg/dL (75-193) L 09/09/18 21:15 HDL Cholesterol 46 mg/dL (23-92) 09/09/18 21:15 TSH 1.94 uIU/ml (0.34-5.60) 09/09/18 21:15 Urine Source CLEAN C 09/09/18 22:30 Urine Color YELLOW 09/09/18 22:30 Urine Clarity CLEAR (CLEAR) 09/09/18 22:30 Urine pH 7.5 (4.6 - 8.0) 09/09/18 22:30 Ur Specific [place] 1.020 (1.005-1.030) 09/09/18 22:30 Urine Protein 100 mg/dL (NEGATIVE) H 09/09/18 22:30 Urine Glucose (UA) NEGATIVE mg/dL (NEGATIVE) 09/09/18 22:30 Urine Ketones NEGATIVE mg/dL (NEGATIVE) 09/09/18 22:30 Urine Blood NEGATIVE (NEGATIVE) 09/09/18 22:30 Urine Nitrate NEGATIVE (NEGATIVE) 09/09/18 22:30 Urine Bilirubin NEGATIVE (NEGATIVE) 09/09/18 22:30 Urine Urobilinogen 0.2 E.U./dL (0.2 - 1.0) 09/09/18 22:30 Ur Leukocyte Esterase NEGATIVE (NEGATIVE) 09/09/18 22:30 Urine RBC NONE SEEN /hpf (0-5) 09/09/18 22:30 Urine WBC 0-2 /hpf (0-5) 09/09/18 22:30 Ur Epithelial Cells RARE /lpf (FEW) 09/09/18 22:30 Urine Bacteria NONE SEEN /hpf (NONE SEEN) 09/09/18 22:30 Salicylates < 25.0 mg/L (30.0-100.0) L 09/09/18 21:15 Urine Opiates Screen NEGATIVE (NEGATIVE) 09/09/18 22:30 Urine Methadone Screen NEGATIVE (NEGATIVE) 09/09/18 22:30 Acetaminophen < 10.0 ug/mL (10.0-30.0) L 09/09/18 21:15 Ur Barbiturates Screen NEGATIVE (NEGATIVE) 09/09/18 22:30 Ur Tricyclics Screen NEGATIVE (NEGATIVE) 09/09/18 22:30 Ur Phencyclidine Scrn NEGATIVE (NEGATIVE) 09/09/18 22:30 Amphetamines Screen NEGATIVE (NEGATIVE) 09/09/18 22:30 U Methamphetamines Scrn NEGATIVE (NEGATIVE) 09/09/18 22:30 U Benzodiazepines Scrn NEGATIVE (NEGATIVE) 09/09/18 22:30 U Cocaine Metab Screen NEGATIVE (NEGATIVE) 09/09/18 22:30 U Cannabinoids Screen POSITIVE (NEGATIVE) H 09/09/18 22:30 Ethyl Alcohol < 10 mg/dL (0-10) 09/09/18 21:15 RPR NONREACTIVE (NONREACTIVE) 09/09/18 21:15 - Physical Exam Vitals and I&O: Vital Signs Temp 97.1 F 09/14/18 06:20 Pulse 60 09/14/18 06:20 Resp 20 09/14/18 06:20 BP 102/63 09/14/18 06:20 Pulse Ox 97 09/14/18 06:20 Intake & Output 09/13/18 09/14/18 09/14/18 18:59 06:59 18:59 Intake Total 1720 120 Balance 1720 120 Intake: Oral 1720 120 Other: # Voids 4 1 # Bowel Movements 1 0 Active Medications: Current Medications Acetaminophen (Tylenol 650mg/20.3ml Suspension) 650 mg GT Q4HR PRN PRN Reason: Mild Pain 1-3/ Temp above 100 Stop: 11/09/18 01:49 Last Admin: 09/14/18 02:23 Dose: 650 mg Amlodipine Besylate (Norvasc) 5 mg GT DAILY [facility] Stop: 11/09/18 08:59 Last Admin: 09/14/18 09:46 Dose: Not Given Artificial Tears (Artificial Tears Ophth Soln) 2 drop EACH EYE Q6H PRN PRN Reason: DRY EYES Stop: 11/09/18 03:26 Last Admin: 09/11/18 17:12 Dose: 2 drop Bisacodyl (Dulcolax 10 Mg Supp) 10 mg RC DAILY PRN PRN Reason: Constipation Stop: 11/09/18 03:26 Ciprofloxacin (Cipro 0.3% Ophth Soln) 1 drop LEFT EYE QID [facility] Stop: 09/14/19 23:59 Last Admin: 09/14/18 09:46 Dose: Not Given Citalopram Hydrobromide (Celexa) 10 mg GT DAILY [facility] Stop: 11/09/18 10:59 Last Admin: 09/14/18 09:45 Dose: 10 mg Diphenhydramine HCl (Benadryl) 50 mg GT HS PRN PRN Reason: Itching Stop: 11/09/18 03:26 Last Admin: 09/13/18 20:49 Dose: 50 mg Ferrous Sulfate (Iron) 300 mg GT DAILY [facility] Stop: 11/10/18 08:59 Last Admin: 09/14/18 09:44 Dose: 300 mg Lorazepam (Ativan) 0.5 mg GT Q4HR PRN; Protocol PRN Reason: Anxiety Stop: 10/10/18 01:49 Last Admin: 09/14/18 09:44 Dose: 0.5 mg Magnesium Hydroxide (Milk Of Magnesia) 30 ml GT HS PRN PRN Reason: Constipation Stop: 11/09/18 03:26 Mirtazapine (Remeron) 7.5 mg GT HS NI Stop: 11/09/18 20:59 Last Admin: 09/13/18 20:12 Dose: 7.5 mg Miscellaneous (Misc Eent Product) 1 appl LEFT EYE QID NI Stop: 09/14/19 23:59 Last Admin: 09/14/18 09:46 Dose: 1 appl Mupirocin (Bactroban Oint) 1 appl NS BID [facility] Stop: 09/16/18 17:01 Last Admin: 09/14/18 09:46 Dose: 1 appl Pantoprazole Sodium (Protonix) 40 mg GT QDAC [facility] Stop: 11/10/18 07:29 Last Admin: 09/14/18 06:38 Dose: 40 mg Prednisolone Acetate (Pred Forte 1% Ophth Susp) 1 drop LEFT EYE QID [facility] Stop: 11/09/18 08:59 Last Admin: 09/14/18 09:46 Dose: 1 drop Risperidone (Risperdal) 1 mg GT BID [facility]; Protocol Stop: 11/09/18 08:59 Last Admin: 09/14/18 09:45 Dose: 1 mg Sodium Chloride ([place] Nasal [place]) 2 spr NS BID [facility] Stop: 11/09/18 08:59 Last Admin: 09/14/18 09:46 Dose: 2 spr Sodium Phosphate (Fleet Enema) 135 ml RC DAILY PRN PRN Reason: Constipation Stop: 11/09/18 03:26 Zolpidem Tartrate (Ambien) 5 mg GT HS PRN PRN Reason: Insomnia Stop: 11/09/18 01:49 Last Admin: 09/13/18 20:13 Dose: 5 mg General: alert HEENT: NC/AT, PERRLA Neck: Supple Lungs: CTAB Cardiovascular: RRR Abdomen: soft, non-tender, non-distended Neurological: alert - Procedures Procedures: Procedures Procedure Code Date STELLA MUSC/FASCIA 20 SQ CM/< 04816 08/27/13 OTHER FASCIECTOMY 83.44 08/27/13 Internal Medicine Assmt/Plan - Assessment Assessment: HTN DM asthma COPD b bka dyslipidemia - Plan Plan: low fat diet monitor glucose closely fall precautions continue current orders Nutritional Asmnt/Malnutr-PDOC - Dietary Evaluation Malnutrition Findings (Please click <Entered> for more info): Nutritional Asmnt/Malnutrition Start: 09/12/18 11: 02 Text: Status: Complete Freq: Protocol: Document 09/12/18 11:02 TOMMYJEANIE (Rec: 09/12/18 11:12 JENARO WHARTON- FNS1) Nutritional Asmnt/Malnutrition Patient General Information Diagnosis psychosis Pertinent Medical Hx/Surgical Hx HTN, DM asthma, COPD, dyslipidemia Subjective Information PT asleep at time of visit Current Diet Order/ Nutrition Support Regular Pertinent Medications Fe, MOM, protonix, fleet enema Pertinent Labs 09/09: Na 141, K 4.1, Cl 107, CO2 26.7, BUN 50, Cr 1.5, Ca 9 .3, glucose 85 Nutritional Hx/Data Height 5 ft 11 in Height (Calculated Centimeters) 180.3 Current Weight (lbs) 150 lb Weight (Calculated Kilograms) 68.0 Weight (Calculated Grams) 14741.9 Body Mass Index (BMI) 20.9 Weight Status Approriate GI Symptoms GI Symptoms None Last BM 09/11 Cultural/Ethnic/Yazidism Belief unknown Usual diet at home regular Skin Integrity/Comment: Vladimir score 14 Estimated Nutritional Goals BEE in Kcals: Using Current wt Calories/Kcals/Kg 25-30kcals/kg Kcals Calculated 1700-2040kcals/day Protein: Using Current wt Protein g/k.1g/kg Protein Calculated 75g/day Fluid: ml per MD Nutritional Problem 1. Problem Problem No nutrition diagnosis at this time Intervention/Recommendation Comments Recommend continuing Regular diet Expected Outcomes/Goals Expected Outcomes/Goals PO intake >75% of meals
[2018-09-14] MEDS: Hydrocodone/APAP 5mg/325mg Tab PO PRN ×2 (17:02→22:34)
--- NOTE | 2018-09-15 03:24 | Progress Notes ---
DATE: 09/14/2018 SUBJECTIVE: Staff was spoken to. The patient is interviewed. Mood is noted to be irritable. Affect is constricted. Insight and judgment are noted to be still impaired. Impulse control is noted to be limited. Coping skills are noted to be limited. The patient is still demanding that he should not be here in the hospital and needs to be discharged. The patient's major concerns is impulse control problems and frustration. No side effects to the medications are noted. ASSESSMENT: The patient is still impulsive. PLAN: To continue the patient with the supportive therapy, encouraged the patient to verbalize the concerns rather than to act out. JOB# [id number]
[2018-09-15] MEDS: Hydrocodone/APAP 5mg/325mg Tab PO PRN (06:38)
[2018-09-15] MEDS: Pantoprazole 40 mg/Packet GT SCH (06:38)
[2018-09-15] MEDS: Ferrous Sulfate 300 MG/5 ML UDC GT SCH (09:19)
[2018-09-15] MEDS: Multivitamin w/ Minerals Tab GT SCH (09:20)
[2018-09-15] MEDS: Prednisolone 1% Ophth Susp 5 mL Bottle LEFT EYE SCH ×4 (09:20→20:37)
[2018-09-15] MEDS: KETOROLAC 0.5% LEFT EYE SCH ×4 (09:20→20:37)
[2018-09-15] MEDS: Saline 0.65% Nasal Spray NS SCH ×2 (09:20→16:21)
[2018-09-15] MEDS: OPTH LEFT EYE SCH ×4 (09:20→20:37)
--- NOTE | 2018-09-15 14:14 | Internal Medicine Prog Note ---
Internal Medicine Subjective - Subjective Service Date: 09/15/18 Patient is:: awake, verbal Per staff patient has:: tolerating meds Internal Medicine Objective - Results Result Diagrams: 09/09/18 21:15 09/09/18 21:15 Recent Labs: Laboratory Last Values WBC 5.0 Th/cmm (4.8-10.8) 09/09/18 21:15 RBC 3.02 Mil/cmm (4.30-5.70) L 09/09/18 21:15 Hgb 10.4 gm/dL (12-16) L 09/09/18 21:15 Hct 30.3 % (41.0-60) L 09/09/18 21:15 MCV 100.4 fl (80-99) H 09/09/18 21:15 MCH 34.4 pg (26.0-30.0) H 09/09/18 21:15 MCHC Differential 34.3 pg (28.0-36.0) 09/09/18 21:15 RDW 12.9 % (11.5-20.0) 09/09/18 21:15 Plt Count 200 Th/cmm (150-400) 09/09/18 21:15 MPV 8.5 fl 09/09/18 21:15 Neutrophils % 54.6 % (40.0-80.0) 09/09/18 21:15 Lymphocytes % 31.3 % (20.0-50.0) 09/09/18 21:15 Monocytes % 8.8 % (2.0-10.0) 09/09/18 21:15 Eosinophils % 4.4 % (0.0-5.0) 09/09/18 21:15 Basophils % 0.9 % (0.0-2.0) 09/09/18 21:15 Sodium 141 mEq/L (136-145) 09/09/18 21:15 Potassium 4.1 mEq/L (3.5-5.1) 09/09/18 21:15 Chloride 107 mEq/L (98-107) 09/09/18 21:15 Carbon Dioxide 26.7 mEq/L (21.0-31.0) 09/09/18 21:15 Anion Gap 11.4 (7.0-16.0) 09/09/18 21:15 BUN 50 mg/dL (7-25) H 09/09/18 21:15 Creatinine 1.5 mg/dL (0.7-1.3) H 09/09/18 21:15 Est GFR ( Amer) > 60.0 ml/min (>90) 09/09/18 21:15 Est GFR (Non-Af Amer) 50.1 ml/min 09/09/18 21:15 BUN/Creatinine Ratio 33.3 09/09/18 21:15 Glucose 85 mg/dL (70-105) 09/09/18 21:15 POC Glucose 95 MG/DL (70 - 105) 09/12/18 06:26 Calcium 9.3 mg/dL (8.6-10.3) 09/09/18 21:15 Total Bilirubin 0.3 mg/dL (0.3-1.0) 09/09/18 21:15 AST 21 U/L (13-39) 09/09/18 21:15 ALT 25 U/L (7-52) 09/09/18 21:15 Alkaline Phosphatase 77 U/L (34-104) 09/09/18 21:15 Troponin I 0.02 ng/mL (0.01-0.05) 09/09/18 21:15 Total Protein 6.6 gm/dL (6.0-8.3) 09/09/18 21:15 Albumin 3.8 gm/dL (4.2-5.5) L 09/09/18 21:15 Globulin 2.8 gm/dL 09/09/18 21:15 Albumin/Globulin Ratio 1.4 (1.0-1.8) 09/09/18 21:15 Triglycerides 105 mg/dL (<150) 09/09/18 21:15 Cholesterol 111 mg/dL (<200) 09/09/18 21:15 LDL Cholesterol Direct 54 mg/dL (75-193) L 09/09/18 21:15 HDL Cholesterol 46 mg/dL (23-92) 09/09/18 21:15 TSH 1.94 uIU/ml (0.34-5.60) 09/09/18 21:15 Urine Source CLEAN C 09/09/18 22:30 Urine Color YELLOW 09/09/18 22:30 Urine Clarity CLEAR (CLEAR) 09/09/18 22:30 Urine pH 7.5 (4.6 - 8.0) 09/09/18 22:30 Ur Specific [place] 1.020 (1.005-1.030) 09/09/18 22:30 Urine Protein 100 mg/dL (NEGATIVE) H 09/09/18 22:30 Urine Glucose (UA) NEGATIVE mg/dL (NEGATIVE) 09/09/18 22:30 Urine Ketones NEGATIVE mg/dL (NEGATIVE) 09/09/18 22:30 Urine Blood NEGATIVE (NEGATIVE) 09/09/18 22:30 Urine Nitrate NEGATIVE (NEGATIVE) 09/09/18 22:30 Urine Bilirubin NEGATIVE (NEGATIVE) 09/09/18 22:30 Urine Urobilinogen 0.2 E.U./dL (0.2 - 1.0) 09/09/18 22:30 Ur Leukocyte Esterase NEGATIVE (NEGATIVE) 09/09/18 22:30 Urine RBC NONE SEEN /hpf (0-5) 09/09/18 22:30 Urine WBC 0-2 /hpf (0-5) 09/09/18 22:30 Ur Epithelial Cells RARE /lpf (FEW) 09/09/18 22:30 Urine Bacteria NONE SEEN /hpf (NONE SEEN) 09/09/18 22:30 Salicylates < 25.0 mg/L (30.0-100.0) L 09/09/18 21:15 Urine Opiates Screen NEGATIVE (NEGATIVE) 09/09/18 22:30 Urine Methadone Screen NEGATIVE (NEGATIVE) 09/09/18 22:30 Acetaminophen < 10.0 ug/mL (10.0-30.0) L 09/09/18 21:15 Ur Barbiturates Screen NEGATIVE (NEGATIVE) 09/09/18 22:30 Ur Tricyclics Screen NEGATIVE (NEGATIVE) 09/09/18 22:30 Ur Phencyclidine Scrn NEGATIVE (NEGATIVE) 09/09/18 22:30 Amphetamines Screen NEGATIVE (NEGATIVE) 09/09/18 22:30 U Methamphetamines Scrn NEGATIVE (NEGATIVE) 09/09/18 22:30 U Benzodiazepines Scrn NEGATIVE (NEGATIVE) 09/09/18 22:30 U Cocaine Metab Screen NEGATIVE (NEGATIVE) 09/09/18 22:30 U Cannabinoids Screen POSITIVE (NEGATIVE) H 09/09/18 22:30 Ethyl Alcohol < 10 mg/dL (0-10) 09/09/18 21:15 RPR NONREACTIVE (NONREACTIVE) 09/09/18 21:15 - Physical Exam Vitals and I&O: Vital Signs Temp 97.3 F 09/15/18 06:18 Pulse 65 09/15/18 06:18 Resp 19 09/15/18 06:18 BP 121/60 09/15/18 06:18 Pulse Ox 96 09/15/18 06:18 Intake & Output 09/14/18 09/15/18 09/15/18 18:59 06:59 18:59 Intake Total 900 300 Balance 900 300 Intake: Oral 900 300 Other: # Voids 4 2 # Bowel Movements 1 0 Active Medications: Current Medications Acetaminophen (Tylenol 650mg/20.3ml Suspension) 650 mg GT Q4HR PRN PRN Reason: Mild Pain 1-3/ Temp above 100 Stop: 11/09/18 01:49 Last Admin: 09/14/18 20:55 Dose: 650 mg Acetaminophen/Hydrocodone Bitart ([place] 5mg/325mg) 1 tab PO Q6H PRN PRN Reason: Pain (Moderate) Stop: 11/13/18 16:46 Last Admin: 09/15/18 06:38 Dose: 1 tab Amlodipine Besylate (Norvasc) 5 mg GT DAILY [facility] Stop: 11/09/18 08:59 Last Admin: 09/15/18 09:19 Dose: Not Given Artificial Tears (Artificial Tears Ophth Soln) 2 drop EACH EYE Q6H PRN PRN Reason: DRY EYES Stop: 11/09/18 03:26 Last Admin: 09/11/18 17:12 Dose: 2 drop Bisacodyl (Dulcolax 10 Mg Supp) 10 mg RC DAILY PRN PRN Reason: Constipation Stop: 11/09/18 03:26 Ciprofloxacin (Cipro 0.3% Ophth Soln) 1 drop LEFT EYE QID [facility] Stop: 09/14/19 23:59 Last Admin: 09/15/18 09:19 Dose: Not Given Citalopram Hydrobromide (Celexa) 10 mg GT DAILY [facility] Stop: 11/09/18 10:59 Last Admin: 09/15/18 09:19 Dose: 10 mg Diphenhydramine HCl (Benadryl) 50 mg GT HS PRN PRN Reason: Itching Stop: 11/09/18 03:26 Last Admin: 09/14/18 20:54 Dose: 50 mg Ferrous Sulfate (Iron) 300 mg GT DAILY [facility] Stop: 11/10/18 08:59 Last Admin: 09/15/18 09:19 Dose: 300 mg Lorazepam (Ativan) 0.5 mg GT Q4HR PRN; Protocol PRN Reason: Anxiety Stop: 10/10/18 01:49 Last Admin: 09/14/18 09:44 Dose: 0.5 mg Magnesium Hydroxide (Milk Of Magnesia) 30 ml GT HS PRN PRN Reason: Constipation Stop: 11/09/18 03:26 Mirtazapine (Remeron) 7.5 mg GT HS NI Stop: 11/09/18 20:59 Last Admin: 09/14/18 20:53 Dose: 7.5 mg Miscellaneous (Misc Eent Product) 1 appl LEFT EYE QID NI Stop: 09/14/19 23:59 Last Admin: 09/15/18 09:20 Dose: 1 appl Mupirocin (Bactroban Oint) 1 appl NS BID NI Stop: 09/16/18 17:01 Last Admin: 09/15/18 09:20 Dose: 1 appl Pantoprazole Sodium (Protonix) 40 mg GT QDAC NI Stop: 11/10/18 07:29 Last Admin: 09/15/18 06:38 Dose: 40 mg Prednisolone Acetate (Pred Forte 1% Ophth Susp) 1 drop LEFT EYE QID NI Stop: 11/09/18 08:59 Last Admin: 09/15/18 09:20 Dose: 1 drop Risperidone (Risperdal) 1 mg GT BID NI; Protocol Stop: 11/09/18 08:59 Last Admin: 09/15/18 09:20 Dose: 1 mg Sodium Chloride ([place] Nasal [place]) 2 spr NS BID NI Stop: 11/09/18 08:59 Last Admin: 09/15/18 09:20 Dose: 2 spr Sodium Phosphate (Fleet Enema) 135 ml RC DAILY PRN PRN Reason: Constipation Stop: 11/09/18 03:26 Zolpidem Tartrate (Ambien) 5 mg GT HS PRN PRN Reason: Insomnia Stop: 11/09/18 01:49 Last Admin: 09/14/18 20:54 Dose: 5 mg General: alert HEENT: NC/AT, PERRLA Neck: Supple Lungs: CTAB Cardiovascular: RRR Abdomen: soft, non-tender, non-distended Neurological: alert - Procedures Procedures: Procedures Procedure Code Date STELLA MUSC/FASCIA 20 SQ CM/< 78416 08/27/13 OTHER FASCIECTOMY 83.44 08/27/13 Internal Medicine Assmt/Plan - Assessment Assessment: HTN DM asthma COPD b bka dyslipidemia - Plan Plan: low fat diet monitor glucose closely fall precautions continue current orders Nutritional Asmnt/Malnutr-PDOC - Dietary Evaluation Malnutrition Findings (Please click <Entered> for more info): Nutritional Asmnt/Malnutrition Start: 09/12/18 11: 02 Text: Status: Complete Freq: Protocol: Document 09/12/18 11:02 JENARO (Rec: 09/12/18 11:12 JENARO WHARTON- FNS1) Nutritional Asmnt/Malnutrition Patient General Information Diagnosis psychosis Pertinent Medical Hx/Surgical Hx HTN, DM asthma, COPD, dyslipidemia Subjective Information PT asleep at time of visit Current Diet Order/ Nutrition Support Regular Pertinent Medications Fe, MOM, protonix, fleet enema Pertinent Labs 09/09: Na 141, K 4.1, Cl 107, CO2 26.7, BUN 50, Cr 1.5, Ca 9 .3, glucose 85 Nutritional Hx/Data Height 5 ft 11 in Height (Calculated Centimeters) 180.3 Current Weight (lbs) 150 lb Weight (Calculated Kilograms) 68.0 Weight (Calculated Grams) 99073.9 Body Mass Index (BMI) 20.9 Weight Status Approriate GI Symptoms GI Symptoms None Last BM 09/11 Cultural/Ethnic/Alevism Belief unknown Usual diet at home regular Skin Integrity/Comment: Vladimir score 14 Estimated Nutritional Goals BEE in Kcals: Using Current wt Calories/Kcals/Kg 25-30kcals/kg Kcals Calculated 1700-2040kcals/day Protein: Using Current wt Protein g/k.1g/kg Protein Calculated 75g/day Fluid: ml per MD Nutritional Problem 1. Problem Problem No nutrition diagnosis at this time Intervention/Recommendation Comments Recommend continuing Regular diet Expected Outcomes/Goals Expected Outcomes/Goals PO intake >75% of meals
[2018-09-16] MEDS: Pantoprazole 40 mg/Packet GT SCH (06:36)
--- NOTE | 2018-09-16 08:17 | Progress Notes ---
DATE: 09/15/2018 SUBJECTIVE: Staff was spoken to. The patient is interviewed. Mood is noted to be irritable. Affect is constricted. Insight and judgment are noted to be still impaired. Coping skills are noted to be very poor. The patient is screaming and yelling. The patient has been having difficult time. The patient is currently on Risperdal 1 mg b.i.d. and has been able to tolerate the medication. The patient is having difficult time with the anger problems are the ones that is the major concern and decided to change the Celexa to Depakote. Depakene is going to be added 250 mg twice a day for his impulsivity and the patient is going to be followed up with the supportive therapy. ASSESSMENT: The patient is still impulsive and testing the limits. PLAN: To continue the patient with the supportive therapy and followup. JOB# [id number]
[2018-09-16] MEDS: OPTH LEFT EYE SCH ×4 (09:43→21:05)
[2018-09-16] MEDS: Multivitamin w/ Minerals Tab GT SCH (09:43)
[2018-09-16] MEDS: KETOROLAC 0.5% LEFT EYE SCH ×4 (09:43→21:05)
[2018-09-16] MEDS: Ferrous Sulfate 300 MG/5 ML UDC GT SCH (09:43)
[2018-09-16] MEDS: Prednisolone 1% Ophth Susp 5 mL Bottle LEFT EYE SCH ×4 (09:44→21:05)
[2018-09-16] MEDS: Saline 0.65% Nasal Spray NS SCH ×2 (09:44→16:55)
[2018-09-16] MEDS: Hydrocodone/APAP 5mg/325mg Tab PO PRN (14:19)
--- NOTE | 2018-09-16 15:31 | Internal Medicine Prog Note ---
Internal Medicine Subjective - Subjective Service Date: 09/16/18 Patient is:: awake, verbal Per staff patient has:: tolerating meds Internal Medicine Objective - Results Result Diagrams: 09/09/18 21:15 09/09/18 21:15 Recent Labs: Laboratory Last Values WBC 5.0 Th/cmm (4.8-10.8) 09/09/18 21:15 RBC 3.02 Mil/cmm (4.30-5.70) L 09/09/18 21:15 Hgb 10.4 gm/dL (12-16) L 09/09/18 21:15 Hct 30.3 % (41.0-60) L 09/09/18 21:15 MCV 100.4 fl (80-99) H 09/09/18 21:15 MCH 34.4 pg (26.0-30.0) H 09/09/18 21:15 MCHC Differential 34.3 pg (28.0-36.0) 09/09/18 21:15 RDW 12.9 % (11.5-20.0) 09/09/18 21:15 Plt Count 200 Th/cmm (150-400) 09/09/18 21:15 MPV 8.5 fl 09/09/18 21:15 Neutrophils % 54.6 % (40.0-80.0) 09/09/18 21:15 Lymphocytes % 31.3 % (20.0-50.0) 09/09/18 21:15 Monocytes % 8.8 % (2.0-10.0) 09/09/18 21:15 Eosinophils % 4.4 % (0.0-5.0) 09/09/18 21:15 Basophils % 0.9 % (0.0-2.0) 09/09/18 21:15 Sodium 141 mEq/L (136-145) 09/09/18 21:15 Potassium 4.1 mEq/L (3.5-5.1) 09/09/18 21:15 Chloride 107 mEq/L (98-107) 09/09/18 21:15 Carbon Dioxide 26.7 mEq/L (21.0-31.0) 09/09/18 21:15 Anion Gap 11.4 (7.0-16.0) 09/09/18 21:15 BUN 50 mg/dL (7-25) H 09/09/18 21:15 Creatinine 1.5 mg/dL (0.7-1.3) H 09/09/18 21:15 Est GFR ( Amer) > 60.0 ml/min (>90) 09/09/18 21:15 Est GFR (Non-Af Amer) 50.1 ml/min 09/09/18 21:15 BUN/Creatinine Ratio 33.3 09/09/18 21:15 Glucose 85 mg/dL (70-105) 09/09/18 21:15 POC Glucose 95 MG/DL (70 - 105) 09/12/18 06:26 Calcium 9.3 mg/dL (8.6-10.3) 09/09/18 21:15 Total Bilirubin 0.3 mg/dL (0.3-1.0) 09/09/18 21:15 AST 21 U/L (13-39) 09/09/18 21:15 ALT 25 U/L (7-52) 09/09/18 21:15 Alkaline Phosphatase 77 U/L (34-104) 09/09/18 21:15 Troponin I 0.02 ng/mL (0.01-0.05) 09/09/18 21:15 Total Protein 6.6 gm/dL (6.0-8.3) 09/09/18 21:15 Albumin 3.8 gm/dL (4.2-5.5) L 09/09/18 21:15 Globulin 2.8 gm/dL 09/09/18 21:15 Albumin/Globulin Ratio 1.4 (1.0-1.8) 09/09/18 21:15 Triglycerides 105 mg/dL (<150) 09/09/18 21:15 Cholesterol 111 mg/dL (<200) 09/09/18 21:15 LDL Cholesterol Direct 54 mg/dL (75-193) L 09/09/18 21:15 HDL Cholesterol 46 mg/dL (23-92) 09/09/18 21:15 TSH 1.94 uIU/ml (0.34-5.60) 09/09/18 21:15 Urine Source CLEAN C 09/09/18 22:30 Urine Color YELLOW 09/09/18 22:30 Urine Clarity CLEAR (CLEAR) 09/09/18 22:30 Urine pH 7.5 (4.6 - 8.0) 09/09/18 22:30 Ur Specific [place] 1.020 (1.005-1.030) 09/09/18 22:30 Urine Protein 100 mg/dL (NEGATIVE) H 09/09/18 22:30 Urine Glucose (UA) NEGATIVE mg/dL (NEGATIVE) 09/09/18 22:30 Urine Ketones NEGATIVE mg/dL (NEGATIVE) 09/09/18 22:30 Urine Blood NEGATIVE (NEGATIVE) 09/09/18 22:30 Urine Nitrate NEGATIVE (NEGATIVE) 09/09/18 22:30 Urine Bilirubin NEGATIVE (NEGATIVE) 09/09/18 22:30 Urine Urobilinogen 0.2 E.U./dL (0.2 - 1.0) 09/09/18 22:30 Ur Leukocyte Esterase NEGATIVE (NEGATIVE) 09/09/18 22:30 Urine RBC NONE SEEN /hpf (0-5) 09/09/18 22:30 Urine WBC 0-2 /hpf (0-5) 09/09/18 22:30 Ur Epithelial Cells RARE /lpf (FEW) 09/09/18 22:30 Urine Bacteria NONE SEEN /hpf (NONE SEEN) 09/09/18 22:30 Salicylates < 25.0 mg/L (30.0-100.0) L 09/09/18 21:15 Urine Opiates Screen NEGATIVE (NEGATIVE) 09/09/18 22:30 Urine Methadone Screen NEGATIVE (NEGATIVE) 09/09/18 22:30 Acetaminophen < 10.0 ug/mL (10.0-30.0) L 09/09/18 21:15 Ur Barbiturates Screen NEGATIVE (NEGATIVE) 09/09/18 22:30 Ur Tricyclics Screen NEGATIVE (NEGATIVE) 09/09/18 22:30 Ur Phencyclidine Scrn NEGATIVE (NEGATIVE) 09/09/18 22:30 Amphetamines Screen NEGATIVE (NEGATIVE) 09/09/18 22:30 U Methamphetamines Scrn NEGATIVE (NEGATIVE) 09/09/18 22:30 U Benzodiazepines Scrn NEGATIVE (NEGATIVE) 09/09/18 22:30 U Cocaine Metab Screen NEGATIVE (NEGATIVE) 09/09/18 22:30 U Cannabinoids Screen POSITIVE (NEGATIVE) H 09/09/18 22:30 Ethyl Alcohol < 10 mg/dL (0-10) 09/09/18 21:15 RPR NONREACTIVE (NONREACTIVE) 09/09/18 21:15 - Physical Exam Vitals and I&O: Vital Signs Temp 98.8 F 09/16/18 14:00 Pulse 73 09/16/18 14:00 Resp 18 09/16/18 14:00 BP 115/54 09/16/18 14:00 Pulse Ox 97 09/16/18 14:00 Intake & Output 09/15/18 09/16/18 09/16/18 18:59 06:59 18:59 Intake Total 1200 240 Output Total 2 Balance 1200 238 Intake: Oral 1200 240 Output: Urine/Stool Mix 2 Other: # Voids 4 3 # Bowel Movements 0 0 Active Medications: Current Medications Acetaminophen (Tylenol 650mg/20.3ml Suspension) 650 mg GT Q4HR PRN PRN Reason: Mild Pain 1-3/ Temp above 100 Stop: 11/09/18 01:49 Last Admin: 09/14/18 20:55 Dose: 650 mg Acetaminophen/Hydrocodone Bitart ([place] 5mg/325mg) 1 tab PO Q6H PRN PRN Reason: Pain (Moderate) Stop: 11/13/18 16:46 Last Admin: 09/16/18 14:19 Dose: 1 tab Amlodipine Besylate (Norvasc) 5 mg GT DAILY NI Stop: 11/09/18 08:59 Last Admin: 09/16/18 09:42 Dose: 5 mg Artificial Tears (Artificial Tears Ophth Soln) 2 drop EACH EYE Q6H PRN PRN Reason: DRY EYES Stop: 11/09/18 03:26 Last Admin: 09/11/18 17:12 Dose: 2 drop Bisacodyl (Dulcolax 10 Mg Supp) 10 mg RC DAILY PRN PRN Reason: Constipation Stop: 11/09/18 03:26 Ciprofloxacin (Cipro 0.3% Ophth Soln) 1 drop LEFT EYE QID NI Stop: 09/14/19 23:59 Last Admin: 09/16/18 14:17 Dose: 1 drop Diphenhydramine HCl (Benadryl) 50 mg GT HS PRN PRN Reason: Itching Stop: 11/09/18 03:26 Last Admin: 09/14/18 20:54 Dose: 50 mg Ferrous Sulfate (Iron) 300 mg GT DAILY NI Stop: 11/10/18 08:59 Last Admin: 09/16/18 09:43 Dose: 300 mg Lorazepam (Ativan) 0.5 mg GT Q4HR PRN; Protocol PRN Reason: Anxiety Stop: 10/10/18 01:49 Last Admin: 09/15/18 20:37 Dose: 0.5 mg Magnesium Hydroxide (Milk Of Magnesia) 30 ml GT HS PRN PRN Reason: Constipation Stop: 11/09/18 03:26 Mirtazapine (Remeron) 7.5 mg GT HS NI Stop: 11/09/18 20:59 Last Admin: 09/15/18 20:37 Dose: 7.5 mg Miscellaneous (Misc Eent Product) 1 appl LEFT EYE QID NI Stop: 09/14/19 23:59 Last Admin: 09/16/18 13:00 Dose: 1 appl Mupirocin (Bactroban Oint) 1 appl NS BID NI Stop: 09/16/18 17:01 Last Admin: 09/16/18 09:44 Dose: 1 appl Pantoprazole Sodium (Protonix) 40 mg GT QDAC NI Stop: 11/10/18 07:29 Last Admin: 09/16/18 06:36 Dose: 40 mg Prednisolone Acetate (Pred Forte 1% Ophth Susp) 1 drop LEFT EYE QID NI Stop: 11/09/18 08:59 Last Admin: 09/16/18 13:00 Dose: 1 drop Risperidone (Risperdal) 1 mg GT BID [facility]; Protocol Stop: 11/09/18 08:59 Last Admin: 09/16/18 09:44 Dose: 1 mg Sodium Chloride ([place] Nasal [place]) 2 spr NS BID [facility] Stop: 11/09/18 08:59 Last Admin: 09/16/18 09:44 Dose: 2 spr Sodium Phosphate (Fleet Enema) 135 ml RC DAILY PRN PRN Reason: Constipation Stop: 11/09/18 03:26 Valproate Sodium (Depakene) 250 mg GT BID [facility]; Protocol Stop: 11/15/18 08:59 Last Admin: 09/16/18 09:44 Dose: 250 mg Zolpidem Tartrate (Ambien) 5 mg GT HS PRN PRN Reason: Insomnia Stop: 11/09/18 01:49 Last Admin: 09/14/18 20:54 Dose: 5 mg General: alert HEENT: NC/AT, PERRLA Neck: Supple Lungs: CTAB Cardiovascular: RRR Abdomen: soft, non-tender, non-distended Neurological: alert - Procedures Procedures: Procedures Procedure Code Date STELLA MUSC/FASCIA 20 SQ CM/< 81478 08/27/13 OTHER FASCIECTOMY 83.44 08/27/13 Internal Medicine Assmt/Plan - Assessment Assessment: HTN DM asthma COPD b bka dyslipidemia - Plan Plan: low fat diet monitor glucose closely fall precautions continue current orders Nutritional Asmnt/Malnutr-PDOC - Dietary Evaluation Malnutrition Findings (Please click <Entered> for more info): Nutritional Asmnt/Malnutrition Start: 09/12/18 11: 02 Text: Status: Complete Freq: Protocol: Document 09/12/18 11:02 JENARO (Rec: 09/12/18 11:12 JENARO WHARTON- [email or web address]) Nutritional Asmnt/Malnutrition Patient General Information Diagnosis psychosis Pertinent Medical Hx/Surgical Hx HTN, DM asthma, COPD, dyslipidemia Subjective Information PT asleep at time of visit Current Diet Order/ Nutrition Support Regular Pertinent Medications Fe, MOM, protonix, fleet enema Pertinent Labs 09/09: Na 141, K 4.1, Cl 107, CO2 26.7, BUN 50, Cr 1.5, Ca 9 .3, glucose 85 Nutritional Hx/Data Height 5 ft 11 in Height (Calculated Centimeters) 180.3 Current Weight (lbs) 150 lb Weight (Calculated Kilograms) 68.0 Weight (Calculated Grams) 67033.9 Body Mass Index (BMI) 20.9 Weight Status Approriate GI Symptoms GI Symptoms None Last BM 09/11 Cultural/Ethnic/Mormonism Belief unknown Usual diet at home regular Skin Integrity/Comment: Vladimir score 14 Estimated Nutritional Goals BEE in Kcals: Using Current wt Calories/Kcals/Kg 25-30kcals/kg Kcals Calculated 1700-2040kcals/day Protein: Using Current wt Protein g/k.1g/kg Protein Calculated 75g/day Fluid: ml per MD Nutritional Problem 1. Problem Problem No nutrition diagnosis at this time Intervention/Recommendation Comments Recommend continuing Regular diet Expected Outcomes/Goals Expected Outcomes/Goals PO intake >75% of meals
--- NOTE | 2018-09-17 04:47 | Progress Notes ---
DATE: 09/16/2018 PSYCHIATRIC PROGRESS NOTE SUBJECTIVE: Staff was spoken to. The patient is interviewed. Mood is noted to be irritable. Affect is constricted. The patient's insight and judgment at this time are noted to be still impaired. Impulse control is noted to be limited. Coping skills are noted to be limited. The patient has been having difficult time to cope with the stress. The patient tends to scream and yell when he does not get his way. The patient has been placed on the mood stabilizer as well as the low dose of an antipsychotic medication and the patient at this time is on Risperdal 1 mg b.i.d. via G-tube and ____ Depakene has been given 250 mg twice a day. The patient has been able to tolerate the medication. No side effects to the medications are noted. ASSESSMENT: The patient is still impulsive. PLAN: To continue the patient with the supportive therapy and followup. JOB# [id number]
[2018-09-17] MEDS: Hydrocodone/APAP 5mg/325mg Tab PO PRN ×3 (04:57→19:49)
[2018-09-17] MEDS: Pantoprazole 40 mg/Packet GT SCH (06:46)
[2018-09-17] MEDS: Ferrous Sulfate 300 MG/5 ML UDC GT SCH (09:58)
[2018-09-17] MEDS: KETOROLAC 0.5% LEFT EYE SCH ×2 (09:59→15:14)
[2018-09-17] MEDS: OPTH LEFT EYE SCH ×2 (09:59→15:14)
[2018-09-17] MEDS: Multivitamin w/ Minerals Tab GT SCH (09:59)
[2018-09-17] MEDS: Prednisolone 1% Ophth Susp 5 mL Bottle LEFT EYE SCH ×4 (10:00→21:16)
[2018-09-17] MEDS: Saline 0.65% Nasal Spray NS SCH ×2 (10:00→18:00)
[2018-09-17] MEDS: Polyvinyl Alcohol Ophth Soln 15 mL Bottle EACH EYE PRN ×2 (10:21→15:36)
--- NOTE | 2018-09-17 12:35 | Internal Medicine Prog Note ---
Internal Medicine Subjective - Subjective Patient seen and examined:: with staff, chart reviewed Patient is:: awake, verbal, interactive Per staff patient has:: no adverse event, no episodes of fall, tolerating meds Internal Medicine Objective - Results Result Diagrams: 09/09/18 21:15 09/09/18 21:15 Recent Labs: Laboratory Last Values WBC 5.0 Th/cmm (4.8-10.8) 09/09/18 21:15 RBC 3.02 Mil/cmm (4.30-5.70) L 09/09/18 21:15 Hgb 10.4 gm/dL (12-16) L 09/09/18 21:15 Hct 30.3 % (41.0-60) L 09/09/18 21:15 MCV 100.4 fl (80-99) H 09/09/18 21:15 MCH 34.4 pg (26.0-30.0) H 09/09/18 21:15 MCHC Differential 34.3 pg (28.0-36.0) 09/09/18 21:15 RDW 12.9 % (11.5-20.0) 09/09/18 21:15 Plt Count 200 Th/cmm (150-400) 09/09/18 21:15 MPV 8.5 fl 09/09/18 21:15 Neutrophils % 54.6 % (40.0-80.0) 09/09/18 21:15 Lymphocytes % 31.3 % (20.0-50.0) 09/09/18 21:15 Monocytes % 8.8 % (2.0-10.0) 09/09/18 21:15 Eosinophils % 4.4 % (0.0-5.0) 09/09/18 21:15 Basophils % 0.9 % (0.0-2.0) 09/09/18 21:15 Sodium 141 mEq/L (136-145) 09/09/18 21:15 Potassium 4.1 mEq/L (3.5-5.1) 09/09/18 21:15 Chloride 107 mEq/L (98-107) 09/09/18 21:15 Carbon Dioxide 26.7 mEq/L (21.0-31.0) 09/09/18 21:15 Anion Gap 11.4 (7.0-16.0) 09/09/18 21:15 BUN 50 mg/dL (7-25) H 09/09/18 21:15 Creatinine 1.5 mg/dL (0.7-1.3) H 09/09/18 21:15 Est GFR ( Amer) > 60.0 ml/min (>90) 09/09/18 21:15 Est GFR (Non-Af Amer) 50.1 ml/min 09/09/18 21:15 BUN/Creatinine Ratio 33.3 09/09/18 21:15 Glucose 85 mg/dL (70-105) 09/09/18 21:15 POC Glucose 95 MG/DL (70 - 105) 09/12/18 06:26 Calcium 9.3 mg/dL (8.6-10.3) 09/09/18 21:15 Total Bilirubin 0.3 mg/dL (0.3-1.0) 09/09/18 21:15 AST 21 U/L (13-39) 09/09/18 21:15 ALT 25 U/L (7-52) 09/09/18 21:15 Alkaline Phosphatase 77 U/L (34-104) 09/09/18 21:15 Troponin I 0.02 ng/mL (0.01-0.05) 09/09/18 21:15 Total Protein 6.6 gm/dL (6.0-8.3) 09/09/18 21:15 Albumin 3.8 gm/dL (4.2-5.5) L 09/09/18 21:15 Globulin 2.8 gm/dL 09/09/18 21:15 Albumin/Globulin Ratio 1.4 (1.0-1.8) 09/09/18 21:15 Triglycerides 105 mg/dL (<150) 09/09/18 21:15 Cholesterol 111 mg/dL (<200) 09/09/18 21:15 LDL Cholesterol Direct 54 mg/dL (75-193) L 09/09/18 21:15 HDL Cholesterol 46 mg/dL (23-92) 09/09/18 21:15 TSH 1.94 uIU/ml (0.34-5.60) 09/09/18 21:15 Urine Source CLEAN C 09/09/18 22:30 Urine Color YELLOW 09/09/18 22:30 Urine Clarity CLEAR (CLEAR) 09/09/18 22:30 Urine pH 7.5 (4.6 - 8.0) 09/09/18 22:30 Ur Specific [place] 1.020 (1.005-1.030) 09/09/18 22:30 Urine Protein 100 mg/dL (NEGATIVE) H 09/09/18 22:30 Urine Glucose (UA) NEGATIVE mg/dL (NEGATIVE) 09/09/18 22:30 Urine Ketones NEGATIVE mg/dL (NEGATIVE) 09/09/18 22: Urine Blood NEGATIVE (NEGATIVE) 09/09/18 22:30 Urine Nitrate NEGATIVE (NEGATIVE) 09/09/18 22:30 Urine Bilirubin NEGATIVE (NEGATIVE) 09/09/18 22:30 Urine Urobilinogen 0.2 E.U./dL (0.2 - 1.0) 09/09/18 22:30 Ur Leukocyte Esterase NEGATIVE (NEGATIVE) 09/09/18 22:30 Urine RBC NONE SEEN /hpf (0-5) 09/09/18 22:30 Urine WBC 0-2 /hpf (0-5) 09/09/18 22:30 Ur Epithelial Cells RARE /lpf (FEW) 09/09/18 22:30 Urine Bacteria NONE SEEN /hpf (NONE SEEN) 09/09/18 22:30 Salicylates < 25.0 mg/L (30.0-100.0) L 09/09/18 21:15 Urine Opiates Screen NEGATIVE (NEGATIVE) 09/09/18 22:30 Urine Methadone Screen NEGATIVE (NEGATIVE) 09/09/18 22:30 Acetaminophen < 10.0 ug/mL (10.0-30.0) L 09/09/18 21:15 Ur Barbiturates Screen NEGATIVE (NEGATIVE) 09/09/18 22:30 Ur Tricyclics Screen NEGATIVE (NEGATIVE) 09/09/18 22:30 Ur Phencyclidine Scrn NEGATIVE (NEGATIVE) 09/09/18 22:30 Amphetamines Screen NEGATIVE (NEGATIVE) 09/09/18 22:30 U Methamphetamines Scrn NEGATIVE (NEGATIVE) 09/09/18 22:30 U Benzodiazepines Scrn NEGATIVE (NEGATIVE) 09/09/18 22:30 U Cocaine Metab Screen NEGATIVE (NEGATIVE) 09/09/18 22:30 U Cannabinoids Screen POSITIVE (NEGATIVE) H 09/09/18 22:30 Ethyl Alcohol < 10 mg/dL (0-10) 09/09/18 21:15 RPR NONREACTIVE (NONREACTIVE) 09/09/18 21:15 - Physical Exam Vitals and I&O: Vital Signs Temp 97.9 F 09/17/18 06:35 Pulse 88 09/17/18 06:35 Resp 20 09/17/18 06:35 BP 152/77 09/17/18 06:35 Pulse Ox 99 09/17/18 06:35 Intake & Output 09/16/18 09/17/18 09/17/18 18:59 06:59 18:59 Intake Total 1200 120 Balance 1200 120 Intake: Oral 1200 120 Other: # Voids 3 # Bowel Movements 1 Active Medications: Current Medications Acetaminophen (Tylenol 650mg/20.3ml Suspension) 650 mg GT Q4HR PRN PRN Reason: Mild Pain 1-3/ Temp above 100 Stop: 11/09/18 01:49 Last Admin: 09/14/18 20:55 Dose: 650 mg Acetaminophen/Hydrocodone Bitart ([place] 5mg/325mg) 1 tab PO Q6H PRN PRN Reason: Pain (Moderate) Stop: 11/13/18 16:46 Last Admin: 09/17/18 11:35 Dose: 1 tab Amlodipine Besylate (Norvasc) 5 mg GT DAILY [facility] Stop: 11/09/18 08:59 Last Admin: 09/17/18 00:02 Dose: 5 mg Artificial Tears (Artificial Tears Ophth Soln) 2 drop EACH EYE Q6H PRN PRN Reason: DRY EYES Stop: 11/09/18 03:26 Last Admin: 09/17/18 10:21 Dose: 2 drop Bisacodyl (Dulcolax 10 Mg Supp) 10 mg RC DAILY PRN PRN Reason: Constipation Stop: 11/09/18 03:26 Ciprofloxacin (Cipro 0.3% Ophth Soln) 1 drop LEFT EYE QID NI Stop: 09/14/19 23:59 Last Admin: 09/17/18 09:58 Dose: 1 drop Diphenhydramine HCl (Benadryl) 50 mg GT HS PRN PRN Reason: Itching Stop: 11/09/18 03:26 Last Admin: 09/14/18 20:54 Dose: 50 mg Ferrous Sulfate (Iron) 300 mg GT DAILY [facility] Stop: 11/10/18 08:59 Last Admin: 09/17/18 09:58 Dose: 300 mg Lorazepam (Ativan) 0.5 mg GT Q4HR PRN; Protocol PRN Reason: Anxiety Stop: 10/10/18 01:49 Last Admin: 09/15/18 20:37 Dose: 0.5 mg Magnesium Hydroxide (Milk Of Magnesia) 30 ml GT HS PRN PRN Reason: Constipation Stop: 11/09/18 03:26 Mirtazapine (Remeron) 7.5 mg GT HS NI Stop: 11/09/18 20:59 Last Admin: 09/16/18 21:05 Dose: 7.5 mg Miscellaneous (Misc Eent Product) 1 appl LEFT EYE QID NI Stop: 09/14/19 23:59 Last Admin: 09/17/18 09:59 Dose: 1 appl Pantoprazole Sodium (Protonix) 40 mg GT QDAC NI Stop: 11/10/18 07:29 Last Admin: 09/17/18 06:46 Dose: 40 mg Prednisolone Acetate (Pred Forte 1% Ophth Susp) 1 drop LEFT EYE QID NI Stop: 11/09/18 08:59 Last Admin: 09/17/18 10:00 Dose: 1 drop Risperidone (Risperdal) 1 mg GT BID [facility]; Protocol Stop: 11/09/18 08:59 Last Admin: 09/17/18 10:00 Dose: 1 mg Sodium Chloride ([place] Nasal [place]) 2 spr NS BID NI Stop: 11/09/18 08:59 Last Admin: 09/17/18 10:00 Dose: 2 spr Sodium Phosphate (Fleet Enema) 135 ml RC DAILY PRN PRN Reason: Constipation Stop: 11/09/18 03:26 Valproate Sodium (Depakene) 250 mg GT BID NI; Protocol Stop: 11/15/18 08:59 Last Admin: 09/17/18 10:00 Dose: 250 mg Zolpidem Tartrate (Ambien) 5 mg GT HS PRN PRN Reason: Insomnia Stop: 11/09/18 01:49 Last Admin: 09/14/18 20:54 Dose: 5 mg General: demented HEENT: NC/AT, PERRLA Neck: Supple Lungs: CTAB Cardiovascular: RRR Abdomen: soft, non-tender, non-distended Extremities: excoriation Neurological: no change - Procedures Procedures: Procedures Procedure Code Date STELLA MUSC/FASCIA 20 SQ CM/< 01533 08/27/13 OTHER FASCIECTOMY 83.44 08/27/13 Internal Medicine Assmt/Plan - Assessment Assessment: - Assessment Assessment: HTN DM asthma COPD b bka dyslipidemia - Plan Plan: low fat diet monitor glucose closely fall precautions continue current orders - Plan Plan: ada iss cpm Nutritional Asmnt/Malnutr-PDOC - Dietary Evaluation Malnutrition Findings (Please click <Entered> for more info): Nutritional Asmnt/Malnutrition Start: 09/12/18 11: 02 Text: Status: Complete Freq: Protocol: Document 09/12/18 11:02 JENARO (Rec: 09/12/18 11:12 JENARO WHARTON- FNS1) Nutritional Asmnt/Malnutrition Patient General Information Diagnosis psychosis Pertinent Medical Hx/Surgical Hx HTN, DM asthma, COPD, dyslipidemia Subjective Information PT asleep at time of visit Current Diet Order/ Nutrition Support Regular Pertinent Medications Fe, MOM, protonix, fleet enema Pertinent Labs 09/09: Na 141, K 4.1, Cl 107, CO2 26.7, BUN 50, Cr 1.5, Ca 9 .3, glucose 85 Nutritional Hx/Data Height 1.8 m Height (Calculated Centimeters) 180.3 Current Weight (lbs) 68.039 kg Weight (Calculated Kilograms) 68.0 Weight (Calculated Grams) 20244.9 Body Mass Index (BMI) 20.9 Weight Status Approriate GI Symptoms GI Symptoms None Last BM 09/11 Cultural/Ethnic/Yazdanism Belief unknown Usual diet at home regular Skin Integrity/Comment: Vladimir score 14 Estimated Nutritional Goals BEE in Kcals: Using Current wt Calories/Kcals/Kg 25-30kcals/kg Kcals Calculated 1700-2040kcals/day Protein: Using Current wt Protein g/k.1g/kg Protein Calculated 75g/day Fluid: ml per MD Nutritional Problem 1. Problem Problem No nutrition diagnosis at this time Intervention/Recommendation Comments Recommend continuing Regular diet Expected Outcomes/Goals Expected Outcomes/Goals PO intake >75% of meals
[2018-09-18] MEDS: Hydrocodone/APAP 5mg/325mg Tab PO PRN ×2 (03:07→09:14)
--- NOTE | 2018-09-18 03:41 | Progress Notes ---
DATE: 09/17/2018 SUBJECTIVE: Staff was spoken to. The patient is interviewed. Mood is noted to be dysphoric. The patient gets easily annoyed. Coping skills are noted to be extremely poor. Sleep and appetite are noted to be improving. No side effects to the medications are noted. The patient demands and when his demands are not met, the patient gets easily frustrated. The patient has short-term memory deficits, but long-term memory seems to be fair. ASSESSMENT: The patient is still impulsive. PLAN: To continue the patient with the valproic acid and Risperdal, which she has been getting twice a day and follow the patient with the supportive therapy. JOB# [id number]
[2018-09-18] MEDS: Pantoprazole 40 mg/Packet GT SCH (06:39)
[2018-09-18] MEDS: Prednisolone 1% Ophth Susp 5 mL Bottle LEFT EYE SCH ×4 (08:02→20:41)
[2018-09-18] MEDS: Ferrous Sulfate 300 MG/5 ML UDC GT SCH (08:02)
[2018-09-18] MEDS: Multivitamin w/ Minerals Tab GT SCH (08:02)
[2018-09-18] MEDS: Saline 0.65% Nasal Spray NS SCH ×2 (08:04→17:28)
[2018-09-18] MEDS: Polyvinyl Alcohol Ophth Soln 15 mL Bottle EACH EYE PRN ×2 (11:50→20:41)
--- NOTE | 2018-09-18 12:34 | Internal Medicine Prog Note ---
Internal Medicine Subjective - Subjective Patient seen and examined:: with staff, chart reviewed Patient is:: awake, verbal, interactive Per staff patient has:: no adverse event, no episodes of fall, tolerating meds Internal Medicine Objective - Results Result Diagrams: 09/09/18 21:15 09/09/18 21:15 Recent Labs: Laboratory Last Values WBC 5.0 Th/cmm (4.8-10.8) 09/09/18 21:15 RBC 3.02 Mil/cmm (4.30-5.70) L 09/09/18 21:15 Hgb 10.4 gm/dL (12-16) L 09/09/18 21:15 Hct 30.3 % (41.0-60) L 09/09/18 21:15 MCV 100.4 fl (80-99) H 09/09/18 21:15 MCH 34.4 pg (26.0-30.0) H 09/09/18 21:15 MCHC Differential 34.3 pg (28.0-36.0) 09/09/18 21:15 RDW 12.9 % (11.5-20.0) 09/09/18 21:15 Plt Count 200 Th/cmm (150-400) 09/09/18 21:15 MPV 8.5 fl 09/09/18 21:15 Neutrophils % 54.6 % (40.0-80.0) 09/09/18 21:15 Lymphocytes % 31.3 % (20.0-50.0) 09/09/18 21:15 Monocytes % 8.8 % (2.0-10.0) 09/09/18 21:15 Eosinophils % 4.4 % (0.0-5.0) 09/09/18 21:15 Basophils % 0.9 % (0.0-2.0) 09/09/18 21:15 Sodium 141 mEq/L (136-145) 09/09/18 21:15 Potassium 4.1 mEq/L (3.5-5.1) 09/09/18 21:15 Chloride 107 mEq/L (98-107) 09/09/18 21:15 Carbon Dioxide 26.7 mEq/L (21.0-31.0) 09/09/18 21:15 Anion Gap 11.4 (7.0-16.0) 09/09/18 21:15 BUN 50 mg/dL (7-25) H 09/09/18 21:15 Creatinine 1.5 mg/dL (0.7-1.3) H 09/09/18 21:15 Est GFR ( Amer) > 60.0 ml/min (>90) 09/09/18 21:15 Est GFR (Non-Af Amer) 50.1 ml/min 09/09/18 21:15 BUN/Creatinine Ratio 33.3 09/09/18 21:15 Glucose 85 mg/dL (70-105) 09/09/18 21:15 POC Glucose 128 MG/DL (70 - 105) H 09/18/18 11:45 Calcium 9.3 mg/dL (8.6-10.3) 09/09/18 21:15 Total Bilirubin 0.3 mg/dL (0.3-1.0) 09/09/18 21:15 AST 21 U/L (13-39) 09/09/18 21:15 ALT 25 U/L (7-52) 09/09/18 21:15 Alkaline Phosphatase 77 U/L (34-104) 09/09/18 21:15 Troponin I 0.02 ng/mL (0.01-0.05) 09/09/18 21:15 Total Protein 6.6 gm/dL (6.0-8.3) 09/09/18 21:15 Albumin 3.8 gm/dL (4.2-5.5) L 09/09/18 21:15 Globulin 2.8 gm/dL 09/09/18 21:15 Albumin/Globulin Ratio 1.4 (1.0-1.8) 09/09/18 21:15 Triglycerides 105 mg/dL (<150) 09/09/18 21:15 Cholesterol 111 mg/dL (<200) 09/09/18 21:15 LDL Cholesterol Direct 54 mg/dL (75-193) L 09/09/18 21:15 HDL Cholesterol 46 mg/dL (23-92) 09/09/18 21:15 TSH 1.94 uIU/ml (0.34-5.60) 09/09/18 21:15 Urine Source CLEAN C 09/09/18 22:30 Urine Color YELLOW 09/09/18 22:30 Urine Clarity CLEAR (CLEAR) 09/09/18 22:30 Urine pH 7.5 (4.6 - 8.0) 09/09/18 22:30 Ur Specific [place] 1.020 (1.005-1.030) 09/09/18 22:30 Urine Protein 100 mg/dL (NEGATIVE) H 09/09/18 22:30 Urine Glucose (UA) NEGATIVE mg/dL (NEGATIVE) 09/09/18 22:30 Urine Ketones NEGATIVE mg/dL (NEGATIVE) 09/09/18 22:30 Urine Blood NEGATIVE (NEGATIVE) 09/09/18 22:30 Urine Nitrate NEGATIVE (NEGATIVE) 09/09/18 22:30 Urine Bilirubin NEGATIVE (NEGATIVE) 09/09/18 22:30 Urine Urobilinogen 0.2 E.U./dL (0.2 - 1.0) 09/09/18 22:30 Ur Leukocyte Esterase NEGATIVE (NEGATIVE) 09/09/18 22:30 Urine RBC NONE SEEN /hpf (0-5) 09/09/18 22:30 Urine WBC 0-2 /hpf (0-5) 09/09/18 22:30 Ur Epithelial Cells RARE /lpf (FEW) 09/09/18 22:30 Urine Bacteria NONE SEEN /hpf (NONE SEEN) 09/09/18 22:30 Salicylates < 25.0 mg/L (30.0-100.0) L 09/09/18 21:15 Urine Opiates Screen NEGATIVE (NEGATIVE) 09/09/18 22:30 Urine Methadone Screen NEGATIVE (NEGATIVE) 09/09/18 22:30 Acetaminophen < 10.0 ug/mL (10.0-30.0) L 09/09/18 21:15 Ur Barbiturates Screen NEGATIVE (NEGATIVE) 09/09/18 22:30 Ur Tricyclics Screen NEGATIVE (NEGATIVE) 09/09/18 22:30 Ur Phencyclidine Scrn NEGATIVE (NEGATIVE) 09/09/18 22:30 Amphetamines Screen NEGATIVE (NEGATIVE) 09/09/18 22:30 U Methamphetamines Scrn NEGATIVE (NEGATIVE) 09/09/18 22:30 U Benzodiazepines Scrn NEGATIVE (NEGATIVE) 09/09/18 22:30 U Cocaine Metab Screen NEGATIVE (NEGATIVE) 09/09/18 22:30 U Cannabinoids Screen POSITIVE (NEGATIVE) H 09/09/18 22:30 Ethyl Alcohol < 10 mg/dL (0-10) 09/09/18 21:15 RPR NONREACTIVE (NONREACTIVE) 09/09/18 21:15 - Physical Exam Vitals and I&O: Vital Signs Temp 97.1 F 09/18/18 06:59 Pulse 79 09/18/18 08:01 Resp 20 09/18/18 06:59 BP 148/83 09/18/18 08:01 Pulse Ox 96 09/18/18 06:59 Intake & Output 09/17/18 09/18/18 09/18/18 18:59 06:59 18:59 Intake Total 900 120 Balance 900 120 Intake: Oral 900 120 Other: # Voids 3 3 # Bowel Movements 1 Active Medications: Current Medications Acetaminophen (Tylenol 650mg/20.3ml Suspension) 650 mg GT Q4HR PRN PRN Reason: Mild Pain 1-3/ Temp above 100 Stop: 11/09/18 01:49 Last Admin: 09/14/18 20:55 Dose: 650 mg Acetaminophen/Hydrocodone Bitart ([place] 5mg/325mg) 1 tab PO Q6H PRN PRN Reason: Pain (Moderate) Stop: 11/13/18 16:46 Last Admin: 09/18/18 09:14 Dose: 1 tab Amlodipine Besylate (Norvasc) 5 mg GT DAILY [facility] Stop: 11/09/18 08:59 Last Admin: 09/18/18 08:01 Dose: 5 mg Artificial Tears (Artificial Tears Ophth Soln) 2 drop EACH EYE Q6H PRN PRN Reason: DRY EYES Stop: 11/09/18 03:26 Last Admin: 09/18/18 11:50 Dose: 2 drop Bisacodyl (Dulcolax 10 Mg Supp) 10 mg RC DAILY PRN PRN Reason: Constipation Stop: 11/09/18 03:26 Ciprofloxacin (Cipro 0.3% Ophth Soln) 1 drop LEFT EYE QID NI Stop: 09/14/19 23:59 Last Admin: 09/18/18 07:59 Dose: 1 drop Diphenhydramine HCl (Benadryl) 50 mg GT HS PRN PRN Reason: Itching Stop: 11/09/18 03:26 Last Admin: 09/14/18 20:54 Dose: 50 mg Ferrous Sulfate (Iron) 300 mg GT DAILY NI Stop: 11/10/18 08:59 Last Admin: 09/18/18 08:02 Dose: 300 mg Lorazepam (Ativan) 0.5 mg GT Q4HR PRN; Protocol PRN Reason: Anxiety Stop: 10/10/18 01:49 Last Admin: 09/15/18 20:37 Dose: 0.5 mg Magnesium Hydroxide (Milk Of Magnesia) 30 ml GT HS PRN PRN Reason: Constipation Stop: 11/09/18 03:26 Mirtazapine (Remeron) 7.5 mg GT HS NI Stop: 11/09/18 20:59 Last Admin: 09/17/18 21:16 Dose: 7.5 mg Pantoprazole Sodium (Protonix) 40 mg GT QDAC NI Stop: 11/10/18 07:29 Last Admin: 09/18/18 06:39 Dose: 40 mg Prednisolone Acetate (Pred Forte 1% Ophth Susp) 1 drop LEFT EYE QID NI Stop: 11/09/18 08:59 Last Admin: 09/18/18 08:02 Dose: 1 drop Risperidone (Risperdal) 1 mg GT BID NI; Protocol Stop: 11/09/18 08:59 Last Admin: 09/18/18 08:02 Dose: 1 mg Sodium Chloride ([place] Nasal [place]) 2 spr NS BID NI Stop: 11/09/18 08:59 Last Admin: 09/18/18 08:04 Dose: 2 spr Sodium Phosphate (Fleet Enema) 135 ml RC DAILY PRN PRN Reason: Constipation Stop: 11/09/18 03:26 Valproate Sodium (Depakene) 250 mg GT BID NI; Protocol Stop: 11/15/18 08:59 Last Admin: 09/18/18 08:04 Dose: 250 mg Zolpidem Tartrate (Ambien) 5 mg GT HS PRN PRN Reason: Insomnia Stop: 11/09/18 01:49 Last Admin: 09/14/18 20:54 Dose: 5 mg General: demented HEENT: NC/AT, PERRLA Neck: Supple Lungs: CTAB Cardiovascular: RRR Abdomen: soft, non-tender, non-distended Extremities: excoriation Neurological: no change - Procedures Procedures: Procedures Procedure Code Date STELLA MUSC/FASCIA 20 SQ CM/< 50316 08/27/13 OTHER FASCIECTOMY 83.44 11/15/13 Internal Medicine Assmt/Plan - Assessment Assessment: - Assessment Assessment: HTN DM asthma COPD b bka dyslipidemia - Plan Plan: low fat diet monitor glucose closely fall precautions continue current orders - Plan Plan: ada iss cpm Nutritional Asmnt/Malnutr-PDOC - Dietary Evaluation Malnutrition Findings (Please click <Entered> for more info): Nutritional Asmnt/Malnutrition Start: 09/12/18 11: 02 Text: Status: Complete Freq: Protocol: Document 09/12/18 11:02 JENARO (Rec: 09/12/18 11:12 JENARO WHARTON- [email or web address]) Nutritional Asmnt/Malnutrition Patient General Information Diagnosis psychosis Pertinent Medical Hx/Surgical Hx HTN, DM asthma, COPD, dyslipidemia Subjective Information PT asleep at time of visit Current Diet Order/ Nutrition Support Regular Pertinent Medications Fe, MOM, protonix, fleet enema Pertinent Labs 09/09: Na 141, K 4.1, Cl 107, CO2 26.7, BUN 50, Cr 1.5, Ca 9 .3, glucose 85 Nutritional Hx/Data Height 1.8 m Height (Calculated Centimeters) 180.3 Current Weight (lbs) 68.039 kg Weight (Calculated Kilograms) 68.0 Weight (Calculated Grams) 47295.9 Body Mass Index (BMI) 20.9 Weight Status Approriate GI Symptoms GI Symptoms None Last BM 09/11 Cultural/Ethnic/Judaism Belief unknown Usual diet at home regular Skin Integrity/Comment: Vladimir score 14 Estimated Nutritional Goals BEE in Kcals: Using Current wt Calories/Kcals/Kg 25-30kcals/kg Kcals Calculated 1700-2040kcals/day Protein: Using Current wt Protein g/k.1g/kg Protein Calculated 75g/day Fluid: ml per MD Nutritional Problem 1. Problem Problem No nutrition diagnosis at this time Intervention/Recommendation Comments Recommend continuing Regular diet Expected Outcomes/Goals Expected Outcomes/Goals PO intake >75% of meals
[2018-09-19] MEDS: Hydrocodone/APAP 5mg/325mg Tab PO PRN ×4 (04:28→22:23)
[2018-09-19] MEDS: Pantoprazole 40 mg/Packet GT SCH (06:33)
[2018-09-19] MEDS: Saline 0.65% Nasal Spray NS SCH ×2 (08:42→16:27)
[2018-09-19] MEDS: Prednisolone 1% Ophth Susp 5 mL Bottle LEFT EYE SCH ×4 (08:42→20:11)
[2018-09-19] MEDS: Multivitamin w/ Minerals Tab GT SCH (08:42)
[2018-09-19] MEDS: Ferrous Sulfate 300 MG/5 ML UDC GT SCH (08:42)
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
--- NOTE | 2018-09-19 14:42 | Internal Medicine Prog Note ---
Internal Medicine Subjective - Subjective Patient seen and examined:: with staff, chart reviewed Patient is:: awake, verbal, interactive Per staff patient has:: no adverse event, no episodes of fall, tolerating meds Internal Medicine Objective - Results Result Diagrams: 09/09/18 21:15 09/09/18 21:15 Recent Labs: Laboratory Last Values WBC 5.0 Th/cmm (4.8-10.8) 09/09/18 21:15 RBC 3.02 Mil/cmm (4.30-5.70) L 09/09/18 21:15 Hgb 10.4 gm/dL (12-16) L 09/09/18 21:15 Hct 30.3 % (41.0-60) L 09/09/18 21:15 MCV 100.4 fl (80-99) H 09/09/18 21:15 MCH 34.4 pg (26.0-30.0) H 09/09/18 21:15 MCHC Differential 34.3 pg (28.0-36.0) 09/09/18 21:15 RDW 12.9 % (11.5-20.0) 09/09/18 21:15 Plt Count 200 Th/cmm (150-400) 09/09/18 21:15 MPV 8.5 fl 09/09/18 21:15 Neutrophils % 54.6 % (40.0-80.0) 09/09/18 21:15 Lymphocytes % 31.3 % (20.0-50.0) 09/09/18 21:15 Monocytes % 8.8 % (2.0-10.0) 09/09/18 21:15 Eosinophils % 4.4 % (0.0-5.0) 09/09/18 21:15 Basophils % 0.9 % (0.0-2.0) 09/09/18 21:15 Sodium 141 mEq/L (136-145) 09/09/18 21:15 Potassium 4.1 mEq/L (3.5-5.1) 09/09/18 21:15 Chloride 107 mEq/L (98-107) 09/09/18 21:15 Carbon Dioxide 26.7 mEq/L (21.0-31.0) 09/09/18 21:15 Anion Gap 11.4 (7.0-16.0) 09/09/18 21:15 BUN 50 mg/dL (7-25) H 09/09/18 21:15 Creatinine 1.5 mg/dL (0.7-1.3) H 09/09/18 21:15 Est GFR ( Amer) > 60.0 ml/min (>90) 09/09/18 21:15 Est GFR (Non-Af Amer) 50.1 ml/min 09/09/18 21:15 BUN/Creatinine Ratio 33.3 09/09/18 21:15 Glucose 85 mg/dL (70-105) 09/09/18 21:15 POC Glucose 128 MG/DL (70 - 105) H 09/18/18 11:45 Calcium 9.3 mg/dL (8.6-10.3) 09/09/18 21:15 Total Bilirubin 0.3 mg/dL (0.3-1.0) 09/09/18 21:15 AST 21 U/L (13-39) 09/09/18 21:15 ALT 25 U/L (7-52) 09/09/18 21:15 Alkaline Phosphatase 77 U/L (34-104) 09/09/18 21:15 Troponin I 0.02 ng/mL (0.01-0.05) 09/09/18 21:15 Total Protein 6.6 gm/dL (6.0-8.3) 09/09/18 21:15 Albumin 3.8 gm/dL (4.2-5.5) L 09/09/18 21:15 Globulin 2.8 gm/dL 09/09/18 21:15 Albumin/Globulin Ratio 1.4 (1.0-1.8) 09/09/18 21:15 Triglycerides 105 mg/dL (<150) 09/09/18 21:15 Cholesterol 111 mg/dL (<200) 09/09/18 21:15 LDL Cholesterol Direct 54 mg/dL (75-193) L 09/09/18 21:15 HDL Cholesterol 46 mg/dL (23-92) 09/09/18 21:15 TSH 1.94 uIU/ml (0.34-5.60) 09/09/18 21:15 Urine Source CLEAN C 09/09/18 22:30 Urine Color YELLOW 09/09/18 22:30 Urine Clarity CLEAR (CLEAR) 09/09/18 22:30 Urine pH 7.5 (4.6 - 8.0) 09/09/18 22:30 Ur Specific [place] 1.020 (1.005-1.030) 09/09/18 22:30 Urine Protein 100 mg/dL (NEGATIVE) H 09/09/18 22:30 Urine Glucose (UA) NEGATIVE mg/dL (NEGATIVE) 09/09/18 22:30 Urine Ketones NEGATIVE mg/dL (NEGATIVE) 09/09/18 22:30 Urine Blood NEGATIVE (NEGATIVE) 09/09/18 22:30 Urine Nitrate NEGATIVE (NEGATIVE) 09/09/18 22:30 Urine Bilirubin NEGATIVE (NEGATIVE) 09/09/18 22:30 Urine Urobilinogen 0.2 E.U./dL (0.2 - 1.0) 09/09/18 22:30 Ur Leukocyte Esterase NEGATIVE (NEGATIVE) 09/09/18 22:30 Urine RBC NONE SEEN /hpf (0-5) 09/09/18 22:30 Urine WBC 0-2 /hpf (0-5) 09/09/18 22:30 Ur Epithelial Cells RARE /lpf (FEW) 09/09/18 22:30 Urine Bacteria NONE SEEN /hpf (NONE SEEN) 09/09/18 22:30 Salicylates < 25.0 mg/L (30.0-100.0) L 09/09/18 21:15 Urine Opiates Screen NEGATIVE (NEGATIVE) 09/09/18 22:30 Urine Methadone Screen NEGATIVE (NEGATIVE) 09/09/18 22:30 Acetaminophen < 10.0 ug/mL (10.0-30.0) L 09/09/18 21:15 Ur Barbiturates Screen NEGATIVE (NEGATIVE) 09/09/18 22:30 Ur Tricyclics Screen NEGATIVE (NEGATIVE) 09/09/18 22:30 Ur Phencyclidine Scrn NEGATIVE (NEGATIVE) 09/09/18 22:30 Amphetamines Screen NEGATIVE (NEGATIVE) 09/09/18 22:30 U Methamphetamines Scrn NEGATIVE (NEGATIVE) 09/09/18 22:30 U Benzodiazepines Scrn NEGATIVE (NEGATIVE) 09/09/18 22:30 U Cocaine Metab Screen NEGATIVE (NEGATIVE) 09/09/18 22:30 U Cannabinoids Screen POSITIVE (NEGATIVE) H 09/09/18 22:30 Ethyl Alcohol < 10 mg/dL (0-10) 09/09/18 21:15 RPR NONREACTIVE (NONREACTIVE) 09/09/18 21:15 - Physical Exam Vitals and I&O: Vital Signs Temp 97.1 F 09/19/18 06:57 Pulse 76 09/19/18 08:43 Resp 20 09/19/18 08:00 BP 118/76 09/19/18 08:43 Pulse Ox 97 09/19/18 06:57 Intake & Output 09/18/18 09/19/18 09/19/18 18:59 06:59 18:59 Intake Total 1100 Balance 1100 Intake: Oral 1100 Other: # Voids 3 # Bowel Movements 1 Active Medications: Current Medications Acetaminophen (Tylenol 650mg/20.3ml Suspension) 650 mg GT Q4HR PRN PRN Reason: Mild Pain 1-3/ Temp above 100 Stop: 11/09/18 01:49 Last Admin: 09/14/18 20:55 Dose: 650 mg Acetaminophen/Hydrocodone Bitart ([place] 5mg/325mg) 1 tab PO Q6H PRN PRN Reason: Pain (Moderate) Stop: 11/13/18 16:46 Last Admin: 09/19/18 08:43 Dose: 1 tab Amlodipine Besylate (Norvasc) 5 mg GT DAILY NI Stop: 11/09/18 08:59 Last Admin: 09/19/18 08:43 Dose: 5 mg Artificial Tears (Artificial Tears Ophth Soln) 2 drop EACH EYE Q6H PRN PRN Reason: DRY EYES Stop: 11/09/18 03:26 Last Admin: 09/18/18 20:41 Dose: 2 drop Bisacodyl (Dulcolax 10 Mg Supp) 10 mg RC DAILY PRN PRN Reason: Constipation Stop: 11/09/18 03:26 Ciprofloxacin (Cipro 0.3% Ophth Soln) 1 drop LEFT EYE QID NI Stop: 09/14/19 23:59 Last Admin: 09/19/18 13:24 Dose: Not Given Diphenhydramine HCl (Benadryl) 50 mg GT HS PRN PRN Reason: Itching Stop: 11/09/18 03:26 Last Admin: 09/18/18 17:29 Dose: 50 mg Ferrous Sulfate (Iron) 300 mg GT DAILY NI Stop: 11/10/18 08:59 Last Admin: 09/19/18 08:42 Dose: 300 mg Lorazepam (Ativan) 0.5 mg GT Q4HR PRN; Protocol PRN Reason: Anxiety Stop: 10/10/18 01:49 Last Admin: 09/19/18 08:43 Dose: 0.5 mg Magnesium Hydroxide (Milk Of Magnesia) 30 ml GT HS PRN PRN Reason: Constipation Stop: 11/09/18 03:26 Mirtazapine (Remeron) 7.5 mg GT HS NI Stop: 11/09/18 20:59 Last Admin: 09/18/18 20:39 Dose: 7.5 mg Pantoprazole Sodium (Protonix) 40 mg GT QDAC NI Stop: 11/10/18 07:29 Last Admin: 09/19/18 06:33 Dose: 40 mg Prednisolone Acetate (Pred Forte 1% Ophth Susp) 1 drop LEFT EYE QID NI Stop: 11/09/18 08:59 Last Admin: 09/19/18 13:24 Dose: Not Given Risperidone (Risperdal) 1 mg GT BID [facility]; Protocol Stop: 11/09/18 08:59 Last Admin: 09/19/18 08:42 Dose: 1 mg Sodium Chloride ([place] Nasal [place]) 2 spr NS BID NI Stop: 11/09/18 08:59 Last Admin: 09/19/18 08:42 Dose: 2 spr Sodium Phosphate (Fleet Enema) 135 ml RC DAILY PRN PRN Reason: Constipation Stop: 11/09/18 03:26 Valproate Sodium (Depakene) 250 mg GT BID [facility]; Protocol Stop: 11/15/18 08:59 Last Admin: 09/19/18 08:42 Dose: 250 mg Zolpidem Tartrate (Ambien) 5 mg GT HS PRN PRN Reason: Insomnia Stop: 11/09/18 01:49 Last Admin: 09/14/18 20:54 Dose: 5 mg General: demented HEENT: NC/AT, PERRLA Neck: Supple Lungs: CTAB Cardiovascular: RRR Abdomen: soft, non-tender, non-distended Extremities: excoriation Neurological: no change - Procedures Procedures: Procedures Procedure Code Date STELLA MUSC/FASCIA 20 SQ CM/< 76836 08/27/13 OTHER FASCIECTOMY 83.44 08/27/13 Internal Medicine Assmt/Plan - Assessment Assessment: - Assessment Assessment: HTN DM asthma COPD b bka dyslipidemia - Plan Plan: low fat diet monitor glucose closely fall precautions continue current orders - Plan Plan: ada iss cpm Nutritional Asmnt/Malnutr-PDOC - Dietary Evaluation Malnutrition Findings (Please click <Entered> for more info): Nutritional Asmnt/Malnutrition Start: 09/12/18 11: 02 Text: Status: Complete Freq: Protocol: Document 09/12/18 11:02 TOMMYJEANIE (Rec: 09/12/18 11:12 TOMMYJEANIE AKIKO- [email or web address]) Nutritional Asmnt/Malnutrition Patient General Information Diagnosis psychosis Pertinent Medical Hx/Surgical Hx HTN, DM asthma, COPD, dyslipidemia Subjective Information PT asleep at time of visit Current Diet Order/ Nutrition Support Regular Pertinent Medications Fe, MOM, protonix, fleet enema Pertinent Labs 09/09: Na 141, K 4.1, Cl 107, CO2 26.7, BUN 50, Cr 1.5, Ca 9 .3, glucose 85 Nutritional Hx/Data Height 1.8 m Height (Calculated Centimeters) 180.3 Current Weight (lbs) 68.039 kg Weight (Calculated Kilograms) 68.0 Weight (Calculated Grams) 06441.9 Body Mass Index (BMI) 20.9 Weight Status Approriate GI Symptoms GI Symptoms None Last BM 09/11 Cultural/Ethnic/Shinto Belief unknown Usual diet at home regular Skin Integrity/Comment: Vladimir score 14 Estimated Nutritional Goals BEE in Kcals: Using Current wt Calories/Kcals/Kg 25-30kcals/kg Kcals Calculated 1700-2040kcals/day Protein: Using Current wt Protein g/k.1g/kg Protein Calculated 75g/day Fluid: ml per MD Nutritional Problem 1. Problem Problem No nutrition diagnosis at this time Intervention/Recommendation Comments Recommend continuing Regular diet Expected Outcomes/Goals Expected Outcomes/Goals PO intake >75% of meals
[2018-09-19] MEDS: Polyvinyl Alcohol Ophth Soln 15 mL Bottle EACH EYE PRN (20:12)
[2018-09-20] MEDS: Hydrocodone/APAP 5mg/325mg Tab PO PRN ×4 (04:29→23:45)
[2018-09-20] MEDS: Pantoprazole 40 mg/Packet GT SCH (06:35)
[2018-09-20] MEDS: Ferrous Sulfate 300 MG/5 ML UDC GT SCH (08:45)
[2018-09-20] MEDS: Saline 0.65% Nasal Spray NS SCH ×2 (08:45→16:35)
[2018-09-20] MEDS: Multivitamin w/ Minerals Tab GT SCH (08:45)
[2018-09-20] MEDS: Prednisolone 1% Ophth Susp 5 mL Bottle LEFT EYE SCH ×4 (08:45→20:33)
--- NOTE | 2018-09-20 11:33 | Internal Medicine Prog Note ---
Internal Medicine Subjective - Subjective Patient seen and examined:: with staff, chart reviewed Patient is:: awake, verbal, interactive Per staff patient has:: no adverse event, no episodes of fall, tolerating meds Internal Medicine Objective - Results Result Diagrams: 09/09/18 21:15 09/09/18 21:15 Recent Labs: Laboratory Last Values WBC 5.0 Th/cmm (4.8-10.8) 09/09/18 21:15 RBC 3.02 Mil/cmm (4.30-5.70) L 09/09/18 21:15 Hgb 10.4 gm/dL (12-16) L 09/09/18 21:15 Hct 30.3 % (41.0-60) L 09/09/18 21:15 MCV 100.4 fl (80-99) H 09/09/18 21:15 MCH 34.4 pg (26.0-30.0) H 09/09/18 21:15 MCHC Differential 34.3 pg (28.0-36.0) 09/09/18 21:15 RDW 12.9 % (11.5-20.0) 09/09/18 21:15 Plt Count 200 Th/cmm (150-400) 09/09/18 21:15 MPV 8.5 fl 09/09/18 21:15 Neutrophils % 54.6 % (40.0-80.0) 09/09/18 21:15 Lymphocytes % 31.3 % (20.0-50.0) 09/09/18 21:15 Monocytes % 8.8 % (2.0-10.0) 09/09/18 21:15 Eosinophils % 4.4 % (0.0-5.0) 09/09/18 21:15 Basophils % 0.9 % (0.0-2.0) 09/09/18 21:15 Sodium 141 mEq/L (136-145) 09/09/18 21:15 Potassium 4.1 mEq/L (3.5-5.1) 09/09/18 21:15 Chloride 107 mEq/L (98-107) 09/09/18 21:15 Carbon Dioxide 26.7 mEq/L (21.0-31.0) 09/09/18 21:15 Anion Gap 11.4 (7.0-16.0) 09/09/18 21:15 BUN 50 mg/dL (7-25) H 09/09/18 21:15 Creatinine 1.5 mg/dL (0.7-1.3) H 09/09/18 21:15 Est GFR ( Amer) > 60.0 ml/min (>90) 09/09/18 21:15 Est GFR (Non-Af Amer) 50.1 ml/min 09/09/18 21:15 BUN/Creatinine Ratio 33.3 09/09/18 21:15 Glucose 85 mg/dL (70-105) 09/09/18 21:15 POC Glucose 128 MG/DL (70 - 105) H 09/18/18 11:45 Calcium 9.3 mg/dL (8.6-10.3) 09/09/18 21:15 Total Bilirubin 0.3 mg/dL (0.3-1.0) 09/09/18 21:15 AST 21 U/L (13-39) 09/09/18 21:15 ALT 25 U/L (7-52) 09/09/18 21:15 Alkaline Phosphatase 77 U/L (34-104) 09/09/18 21:15 Troponin I 0.02 ng/mL (0.01-0.05) 09/09/18 21:15 Total Protein 6.6 gm/dL (6.0-8.3) 09/09/18 21:15 Albumin 3.8 gm/dL (4.2-5.5) L 09/09/18 21:15 Globulin 2.8 gm/dL 09/09/18 21:15 Albumin/Globulin Ratio 1.4 (1.0-1.8) 09/09/18 21:15 Triglycerides 105 mg/dL (<150) 09/09/18 21:15 Cholesterol 111 mg/dL (<200) 09/09/18 21:15 LDL Cholesterol Direct 54 mg/dL (75-193) L 09/09/18 21:15 HDL Cholesterol 46 mg/dL (23-92) 09/09/18 21:15 TSH 1.94 uIU/ml (0.34-5.60) 09/09/18 21:15 Urine Source CLEAN C 09/09/18 22:30 Urine Color YELLOW 09/09/18 22:30 Urine Clarity CLEAR (CLEAR) 09/09/18 22:30 Urine pH 7.5 (4.6 - 8.0) 09/09/18 22:30 Ur Specific [place] 1.020 (1.005-1.030) 09/09/18 22:30 Urine Protein 100 mg/dL (NEGATIVE) H 09/09/18 22:30 Urine Glucose (UA) NEGATIVE mg/dL (NEGATIVE) 09/09/18 22:30 Urine Ketones NEGATIVE mg/dL (NEGATIVE) 09/09/18 22:30 Urine Blood NEGATIVE (NEGATIVE) 09/09/18 22:30 Urine Nitrate NEGATIVE (NEGATIVE) 09/09/18 22:30 Urine Bilirubin NEGATIVE (NEGATIVE) 09/09/18 22:30 Urine Urobilinogen 0.2 E.U./dL (0.2 - 1.0) 09/09/18 22:30 Ur Leukocyte Esterase NEGATIVE (NEGATIVE) 09/09/18 22:30 Urine RBC NONE SEEN /hpf (0-5) 09/09/18 22:30 Urine WBC 0-2 /hpf (0-5) 09/09/18 22:30 Ur Epithelial Cells RARE /lpf (FEW) 09/09/18 22:30 Urine Bacteria NONE SEEN /hpf (NONE SEEN) 09/09/18 22:30 Salicylates < 25.0 mg/L (30.0-100.0) L 09/09/18 21:15 Urine Opiates Screen NEGATIVE (NEGATIVE) 09/09/18 22:30 Urine Methadone Screen NEGATIVE (NEGATIVE) 09/09/18 22:30 Acetaminophen < 10.0 ug/mL (10.0-30.0) L 09/09/18 21:15 Ur Barbiturates Screen NEGATIVE (NEGATIVE) 09/09/18 22:30 Ur Tricyclics Screen NEGATIVE (NEGATIVE) 09/09/18 22:30 Ur Phencyclidine Scrn NEGATIVE (NEGATIVE) 09/09/18 22:30 Amphetamines Screen NEGATIVE (NEGATIVE) 09/09/18 22:30 U Methamphetamines Scrn NEGATIVE (NEGATIVE) 09/09/18 22:30 U Benzodiazepines Scrn NEGATIVE (NEGATIVE) 09/09/18 22:30 U Cocaine Metab Screen NEGATIVE (NEGATIVE) 09/09/18 22:30 U Cannabinoids Screen POSITIVE (NEGATIVE) H 09/09/18 22:30 Ethyl Alcohol < 10 mg/dL (0-10) 09/09/18 21:15 RPR NONREACTIVE (NONREACTIVE) 09/09/18 21:15 - Physical Exam Vitals and I&O: Vital Signs Temp 98 F 09/20/18 06:38 Pulse 100 09/20/18 08:44 Resp 20 09/20/18 07:41 BP 146/76 09/20/18 08:44 Pulse Ox 97 09/20/18 06:38 Intake & Output 09/19/18 09/20/18 09/20/18 18:59 06:59 18:59 Intake Total 2260 Output Total 1 Balance 2259 Intake: Oral 2260 Output: Urine/Stool Mix 1 Other: # Voids 2 # Bowel Movements 1 Active Medications: Current Medications Acetaminophen (Tylenol 650mg/20.3ml Suspension) 650 mg GT Q4HR PRN PRN Reason: Mild Pain 1-3/ Temp above 100 Stop: 11/09/18 01:49 Last Admin: 09/19/18 20:12 Dose: 650 mg Acetaminophen/Hydrocodone Bitart ([place] 5mg/325mg) 1 tab PO Q6H PRN PRN Reason: Pain (Moderate) Stop: 11/13/18 16:46 Last Admin: 09/20/18 09:13 Dose: 1 tab Amlodipine Besylate (Norvasc) 5 mg GT DAILY [facility] Stop: 11/09/18 08:59 Last Admin: 09/20/18 08:44 Dose: 5 mg Artificial Tears (Artificial Tears Ophth Soln) 2 drop EACH EYE Q6H PRN PRN Reason: DRY EYES Stop: 11/09/18 03:26 Last Admin: 09/19/18 20:12 Dose: 2 drop Bisacodyl (Dulcolax 10 Mg Supp) 10 mg RC DAILY PRN PRN Reason: Constipation Stop: 11/09/18 03:26 Ciprofloxacin (Cipro 0.3% Ophth Soln) 1 drop LEFT EYE QID [facility] Stop: 09/14/19 23:59 Last Admin: 09/20/18 08:45 Dose: 1 drop Diphenhydramine HCl (Benadryl) 50 mg GT HS PRN PRN Reason: Itching Stop: 11/09/18 03:26 Last Admin: 09/18/18 17:29 Dose: 50 mg Ferrous Sulfate (Iron) 300 mg GT DAILY [facility] Stop: 11/10/18 08:59 Last Admin: 09/20/18 08:45 Dose: 300 mg Lorazepam (Ativan) 0.5 mg GT Q4HR PRN; Protocol PRN Reason: Anxiety Stop: 10/10/18 01:49 Last Admin: 09/19/18 08:43 Dose: 0.5 mg Magnesium Hydroxide (Milk Of Magnesia) 30 ml GT HS PRN PRN Reason: Constipation Stop: 11/09/18 03:26 Mirtazapine (Remeron) 7.5 mg GT HS NI Stop: 11/09/18 20:59 Last Admin: 09/19/18 20:11 Dose: 7.5 mg Pantoprazole Sodium (Protonix) 40 mg GT QDAC NI Stop: 11/10/18 07:29 Last Admin: 09/20/18 06:35 Dose: 40 mg Prednisolone Acetate (Pred Forte 1% Ophth Susp) 1 drop LEFT EYE QID NI Stop: 11/09/18 08:59 Last Admin: 09/20/18 08:45 Dose: 1 drop Risperidone (Risperdal) 1 mg GT BID [facility]; Protocol Stop: 11/09/18 08:59 Last Admin: 09/20/18 08:45 Dose: 1 mg Sodium Chloride ([place] Nasal Echo) 2 spr NS BID [facility] Stop: 11/09/18 08:59 Last Admin: 09/20/18 08:45 Dose: 2 spr Sodium Phosphate (Fleet Enema) 135 ml RC DAILY PRN PRN Reason: Constipation Stop: 11/09/18 03:26 Valproate Sodium (Depakene) 250 mg GT BID [facility]; Protocol Stop: 11/15/18 08:59 Last Admin: 09/20/18 08:45 Dose: 250 mg Zolpidem Tartrate (Ambien) 5 mg GT HS PRN PRN Reason: Insomnia Stop: 11/09/18 01:49 Last Admin: 09/19/18 22:23 Dose: 5 mg General: demented HEENT: NC/AT, PERRLA Neck: Supple Lungs: CTAB Cardiovascular: RRR Abdomen: soft, non-tender, non-distended Extremities: excoriation Neurological: no change - Procedures Procedures: Procedures Procedure Code Date STELLA MUSC/FASCIA 20 SQ CM/< 51696 08/27/13 OTHER FASCIECTOMY 83.44 08/27/13 Internal Medicine Assmt/Plan - Assessment Assessment: - Assessment Assessment: HTN DM asthma COPD b bka dyslipidemia - Plan Plan: low fat diet monitor glucose closely fall precautions continue current orders - Plan Plan: ada iss cpm Nutritional Asmnt/Malnutr-PDOC - Dietary Evaluation Malnutrition Findings (Please click <Entered> for more info): Nutritional Asmnt/Malnutrition Start: 09/12/18 11: 02 Text: Status: Complete Freq: Protocol: Document 09/12/18 11:02 TOMMYJEANIE (Rec: 09/12/18 11:12 TOMMYJEANIE AKIKO- [email or web address]) Nutritional Asmnt/Malnutrition Patient General Information Diagnosis psychosis Pertinent Medical Hx/Surgical Hx HTN, DM asthma, COPD, dyslipidemia Subjective Information PT asleep at time of visit Current Diet Order/ Nutrition Support Regular Pertinent Medications Fe, MOM, protonix, fleet enema Pertinent Labs 09/09: Na 141, K 4.1, Cl 107, CO2 26.7, BUN 50, Cr 1.5, Ca 9 .3, glucose 85 Nutritional Hx/Data Height 1.8 m Height (Calculated Centimeters) 180.3 Current Weight (lbs) 68.039 kg Weight (Calculated Kilograms) 68.0 Weight (Calculated Grams) 23168.9 Body Mass Index (BMI) 20.9 Weight Status Approriate GI Symptoms GI Symptoms None Last BM 09/11 Cultural/Ethnic/Evangelical Belief unknown Usual diet at home regular Skin Integrity/Comment: Vladimir score 14 Estimated Nutritional Goals BEE in Kcals: Using Current wt Calories/Kcals/Kg 25-30kcals/kg Kcals Calculated 1700-2040kcals/day Protein: Using Current wt Protein g/k.1g/kg Protein Calculated 75g/day Fluid: ml per MD Nutritional Problem 1. Problem Problem No nutrition diagnosis at this time Intervention/Recommendation Comments Recommend continuing Regular diet Expected Outcomes/Goals Expected Outcomes/Goals PO intake >75% of meals
--- NOTE | 2018-09-20 23:51 | Progress Notes ---
DATE: 09/20/2018 SUBJECTIVE: Staff was spoken to. The patient is interviewed. Mood is noted to be irritable. Affect is constricted. Insight and judgment at this time are noted to be still impaired. Impulse control is noted to be limited. Coping skills are noted to be limited. The patient has been having difficult time to cope with the stress. The patient is getting easily irritable, angry, and demanding that she should be discharged. The patient is reporting that he has been in too much of pain, no one understands. ASSESSMENT: The patient is still impulsive. PLAN: To continue the patient with the supportive therapy and followup. JOB# [id number]
[2018-09-21] MEDS: Hydrocodone/APAP 5mg/325mg Tab PO PRN (06:39)
[2018-09-21] MEDS: Pantoprazole 40 mg/Packet GT SCH (06:40)
[2018-09-21] MEDS: Ferrous Sulfate 300 MG/5 ML UDC GT SCH (09:16)
[2018-09-21] MEDS: Multivitamin w/ Minerals Tab GT SCH (09:16)
[2018-09-21] MEDS: Polyvinyl Alcohol Ophth Soln 15 mL Bottle EACH EYE PRN (09:17)
[2018-09-21] MEDS: Saline 0.65% Nasal Spray NS SCH (09:17)
[2018-09-21] MEDS: Prednisolone 1% Ophth Susp 5 mL Bottle LEFT EYE SCH ×2 (09:18→14:09)
--- NOTE | 2018-09-21 15:37 | Internal Medicine Prog Note ---
Internal Medicine Subjective - Subjective Patient seen and examined:: with staff, chart reviewed, other (pt was seen early this am) Patient is:: awake, verbal, interactive Per staff patient has:: no adverse event, no episodes of fall, tolerating meds Internal Medicine Objective - Results Result Diagrams: 09/09/18 21:15 09/09/18 21:15 Recent Labs: Laboratory Last Values WBC 5.0 Th/cmm (4.8-10.8) 09/09/18 21:15 RBC 3.02 Mil/cmm (4.30-5.70) L 09/09/18 21:15 Hgb 10.4 gm/dL (12-16) L 09/09/18 21:15 Hct 30.3 % (41.0-60) L 09/09/18 21:15 MCV 100.4 fl (80-99) H 09/09/18 21:15 MCH 34.4 pg (26.0-30.0) H 09/09/18 21:15 MCHC Differential 34.3 pg (28.0-36.0) 09/09/18 21:15 RDW 12.9 % (11.5-20.0) 09/09/18 21:15 Plt Count 200 Th/cmm (150-400) 09/09/18 21:15 MPV 8.5 fl 09/09/18 21:15 Neutrophils % 54.6 % (40.0-80.0) 09/09/18 21:15 Lymphocytes % 31.3 % (20.0-50.0) 09/09/18 21:15 Monocytes % 8.8 % (2.0-10.0) 09/09/18 21:15 Eosinophils % 4.4 % (0.0-5.0) 09/09/18 21:15 Basophils % 0.9 % (0.0-2.0) 09/09/18 21:15 Sodium 141 mEq/L (136-145) 09/09/18 21:15 Potassium 4.1 mEq/L (3.5-5.1) 09/09/18 21:15 Chloride 107 mEq/L (98-107) 09/09/18 21:15 Carbon Dioxide 26.7 mEq/L (21.0-31.0) 09/09/18 21:15 Anion Gap 11.4 (7.0-16.0) 09/09/18 21:15 BUN 50 mg/dL (7-25) H 09/09/18 21:15 Creatinine 1.5 mg/dL (0.7-1.3) H 09/09/18 21:15 Est GFR ( Amer) > 60.0 ml/min (>90) 09/09/18 21:15 Est GFR (Non-Af Amer) 50.1 ml/min 09/09/18 21:15 BUN/Creatinine Ratio 33.3 09/09/18 21:15 Glucose 85 mg/dL (70-105) 09/09/18 21:15 POC Glucose 128 MG/DL (70 - 105) H 09/18/18 11:45 Calcium 9.3 mg/dL (8.6-10.3) 09/09/18 21:15 Total Bilirubin 0.3 mg/dL (0.3-1.0) 09/09/18 21:15 AST 21 U/L (13-39) 09/09/18 21:15 ALT 25 U/L (7-52) 09/09/18 21:15 Alkaline Phosphatase 77 U/L (34-104) 09/09/18 21:15 Troponin I 0.02 ng/mL (0.01-0.05) 09/09/18 21:15 Total Protein 6.6 gm/dL (6.0-8.3) 09/09/18 21:15 Albumin 3.8 gm/dL (4.2-5.5) L 09/09/18 21:15 Globulin 2.8 gm/dL 09/09/18 21:15 Albumin/Globulin Ratio 1.4 (1.0-1.8) 09/09/18 21:15 Triglycerides 105 mg/dL (<150) 09/09/18 21:15 Cholesterol 111 mg/dL (<200) 09/09/18 21:15 LDL Cholesterol Direct 54 mg/dL (75-193) L 09/09/18 21:15 HDL Cholesterol 46 mg/dL (23-92) 09/09/18 21:15 TSH 1.94 uIU/ml (0.34-5.60) 09/09/18 21:15 Urine Source CLEAN C 09/09/18 22:30 Urine Color YELLOW 09/09/18 22:30 Urine Clarity CLEAR (CLEAR) 09/09/18 22:30 Urine pH 7.5 (4.6 - 8.0) 09/09/18 22:30 Ur Specific [place] 1.020 (1.005-1.030) 09/09/18 22:30 Urine Protein 100 mg/dL (NEGATIVE) H 09/09/18 22:30 Urine Glucose (UA) NEGATIVE mg/dL (NEGATIVE) 09/09/18 22: Urine Ketones NEGATIVE mg/dL (NEGATIVE) 09/09/18 22:30 Urine Blood NEGATIVE (NEGATIVE) 09/09/18 22:30 Urine Nitrate NEGATIVE (NEGATIVE) 09/09/18 22:30 Urine Bilirubin NEGATIVE (NEGATIVE) 09/09/18:30 Urine Urobilinogen 0.2 E.U./dL (0.2 - 1.0) 09/09/18 22:30 Ur Leukocyte Esterase NEGATIVE (NEGATIVE) 09/09/18 22:30 Urine RBC NONE SEEN /hpf (0-5) 09/09/18 22:30 Urine WBC 0-2 /hpf (0-5) 09/09/18 22:30 Ur Epithelial Cells RARE /lpf (FEW) 09/09/18 22:30 Urine Bacteria NONE SEEN /hpf (NONE SEEN) 09/09/18 22:30 Salicylates < 25.0 mg/L (30.0-100.0) L 09/09/18 21:15 Urine Opiates Screen NEGATIVE (NEGATIVE) 09/09/18 22:30 Urine Methadone Screen NEGATIVE (NEGATIVE) 09/09/18 22:30 Acetaminophen < 10.0 ug/mL (10.0-30.0) L 09/09/18 21:15 Ur Barbiturates Screen NEGATIVE (NEGATIVE) 09/09/18 22:30 Ur Tricyclics Screen NEGATIVE (NEGATIVE) 09/09/18 22:30 Ur Phencyclidine Scrn NEGATIVE (NEGATIVE) 09/09/18 22:30 Amphetamines Screen NEGATIVE (NEGATIVE) 09/09/18 22:30 U Methamphetamines Scrn NEGATIVE (NEGATIVE) 09/09/18 22:30 U Benzodiazepines Scrn NEGATIVE (NEGATIVE) 09/09/18 22:30 U Cocaine Metab Screen NEGATIVE (NEGATIVE) 09/09/18 22:30 U Cannabinoids Screen POSITIVE (NEGATIVE) H 09/09/18 22:30 Ethyl Alcohol < 10 mg/dL (0-10) 09/09/18 21:15 RPR NONREACTIVE (NONREACTIVE) 09/09/18 21:15 - Physical Exam Vitals and I&O: Vital Signs Temp 97.6 F 09/21/18 14:28 Pulse 66 09/21/18 14:28 Resp 20 09/21/18 14:28 BP 121/54 09/21/18 14:28 Pulse Ox 95 09/21/18 14:28 Intake & Output 09/20/18 09/21/18 09/21/18 18:59 06:59 18:59 Intake Total 1300 660 Output Total 1 Balance 1300 659 Intake: Oral 1300 660 Output: Urine/Stool Mix 1 Other: # Voids 4 3 1 # Bowel Movements 1 1 0 Stool Characteristics Formed Brown General: demented HEENT: NC/AT, PERRLA Neck: Supple Lungs: CTAB Cardiovascular: RRR Abdomen: soft, non-tender, non-distended Extremities: excoriation Neurological: no change - Procedures Procedures: Procedures Procedure Code Date STELLA MUSC/FASCIA 20 SQ CM/< 40121 08/27/13 OTHER FASCIECTOMY 83.44 08/27/13 Internal Medicine Assmt/Plan - Assessment Assessment: - Assessment Assessment: HTN DM asthma COPD b bka dyslipidemia - Plan Plan: low fat diet monitor glucose closely fall precautions continue current orders - Plan Plan: ada iss cpm Nutritional Asmnt/Malnutr-PDOC - Dietary Evaluation Malnutrition Findings (Please click <Entered> for more info): Nutritional Asmnt/Malnutrition Start: 09/12/18 11: 02 Text: Status: Complete Freq: Protocol: Document 09/12/18 11:02 JENARO (Rec: 09/12/18 11:12 JENARO WHARTON- [email or web address]) Nutritional Asmnt/Malnutrition Patient General Information Diagnosis psychosis Pertinent Medical Hx/Surgical Hx HTN, DM asthma, COPD, dyslipidemia Subjective Information PT asleep at time of visit Current Diet Order/ Nutrition Support Regular Pertinent Medications Fe, MOM, protonix, fleet enema Pertinent Labs 09/09: Na 141, K 4.1, Cl 107, CO2 26.7, BUN 50, Cr 1.5, Ca 9 .3, glucose 85 Nutritional Hx/Data Height 1.8 m Height (Calculated Centimeters) 180.3 Current Weight (lbs) 68.039 kg Weight (Calculated Kilograms) 68.0 Weight (Calculated Grams) 88477.9 Body Mass Index (BMI) 20.9 Weight Status Approriate GI Symptoms GI Symptoms None Last BM 09/11 Cultural/Ethnic/Synagogue Belief unknown Usual diet at home regular Skin Integrity/Comment: Vladimir score 14 Estimated Nutritional Goals BEE in Kcals: Using Current wt Calories/Kcals/Kg 25-30kcals/kg Kcals Calculated 1700-2040kcals/day Protein: Using Current wt Protein g/k.1g/kg Protein Calculated 75g/day Fluid: ml per MD Nutritional Problem 1. Problem Problem No nutrition diagnosis at this time Intervention/Recommendation Comments Recommend continuing Regular diet Expected Outcomes/Goals Expected Outcomes/Goals PO intake >75% of meals
== END 2018-09-21 14:20 | DRG 885 ==
LOC: ER 20:47 → GERO 22:05
DX: F31.64 Bipolar disorder, current episode mixed, severe, with psychotic features (principal); F29 Unspecified psychosis not due to a substance or known physiological condition; I10 Essential (primary) hypertension; J44.9 Chronic obstructive pulmonary disease, unspecified; E78.5 Hyperlipidemia, unspecified; E11.9 Type 2 diabetes mellitus without complications; E86.0 Dehydration; D64.9 Anemia, unspecified; Z88.8 Allergy status to other drugs, medicaments and biological substances; Z88.1 Allergy status to other antibiotic agents; Z91.040 Latex allergy status; Z82.49 Family history of ischemic heart disease and other diseases of the circulatory system; Z89.512 Acquired absence of left leg below knee; Z89.511 Acquired absence of right leg below knee
CPT/HCPCS: 36415-UA; 80053-TC; 80061-TC; 80307; 80320-TC; 80329-TC; 81001-TC; 82948-90; 83036-90; 84443-TC; 84484-TC; 85025-TC; 86592-TC; 93005; J2650; X3401; Z7610

== ENCOUNTER 2018-10-10 10:40 | Inpatient (IN) | payer MEDICARE, OTHER ==
--- NOTE | 2018-10-10 11:31 | ED Physician Chart ---
ED Chief Complaint/HPI - Patient Information Date Seen:: 10/10/18 Time Seen:: 11:21 Chief Complaint:: WEAKNESS AND CONFUSION History of Present Illness:: THIS IS A 63 YR OLD MALE BILATERAL BK AMPUTATION PSYCH DIABETIC PATIENT BIB HIS RELATIVES FOR MANAGEMENT OF CARE AND POSSIBLE PLACEMENT IN THE INTERMEDIATE. THE RELATIVES STATES THAT HE IS OUT OF CONTROL AT HOME AND NOT SLEEPING. Allergies:: Allergies Allergy/AdvReac Type Severity Reaction Status Date / Time ciprofloxacin [From Cipro] Allergy Verified 09/09/18 20:57 fluphenazine Allergy Verified 09/09/18 20:57 latex Allergy Verified 09/09/18 20:57 Historian:: Patient, Family Member, Medical Records Review:: Nurse's Note Reviewed, Old Chart Reviewed ED Review of Systems - Review of Systems General/Constitutional: No fever, No chills, No weight loss, Weakness, No diaphoresis, No edema, Loss of appetite Skin: No skin lesions, No rash, No bruising Head: No headache, No light-headedness Eyes: No loss of vision, No pain, No diplopia ENT: No earache, No nasal drainage, No sore throat, No tinnitus Neck: No neck pain, No swelling, No thyromegaly, No stiffness, No mass noted Cardio Vascular: No chest pain, No palpitations, No PND, No orthopnea, No edema Pulmonary: No SOB, No cough, No sputum, No wheezing GI: No nausea, No vomiting, No diarrhea, No pain, No melena, No hematochezia, No constipation, No hematemesis G/U: No dysuria, No frequency, No hematuria Musculoskeletal: No bone or joint pain, No back pain, No muscle pain Endocrine: No polyuria, No polydipsia Psychiatric: Prior psych history, Depression, No anxiety, No suicidal ideation Hematopoietic: No bruising, No lymphadenopathy Allergic/Immuno: No urticaria, No angioedema Neurological: No syncope, No focal symptoms, No weakness, No paresthesia, No headache, No seizure, No dizziness, No confusion, No vertigo ED Past Medical History - Past Medical History Obtainable: Yes Past Medical History: HTN, DM, CHF, CVA/TIA, Arthritis, Dementia Family History: None Social History: Smoker, Alcohol, Illicit Drug Use, Single Surgical History: Pacemaker, PEG/GTube, other (BILATERAL BKA'S) Psychiatricy History: Depression, Bipolar, Dementia Medication: Reviewed Family Medical History - Family Member Mother History Unknown: Yes ED Physical Exam - Physical Examination General/Constitutional: Awake, Well-developed, well-nourished (POORLY NOURISHED) , Alert, No distress, GCS 15, Non-toxic appearing, Ambulatory Head: Atraumatic Eyes: Lids, conjuctiva normal, PERRL, EOMI Skin: Nl inspection, No rash, No skin lesions, No ecchymosis, Well hydrated, No lymphadenopathy ENMT: External ears, nose nl, Nasal exam nl, Lips, teeth, gums nl Neck: Nontender, Full ROM w/o pain, No JVD, No nuchal rigidity, No bruit, No mass, No stridor Respiratory: Nl effort/Exclusion, Clear to Auscultation, No Wheeze/Rhonchi/Rales Cardio Vascular: RRR, No murmur, gallop, rubs, NL S1 S2 GI: No tenderness/rebounding/guarding, No organomegaly, No hernia, Normal BS's, Nondistended, No mass/bruits, No McBurney tenderness : No CVA tenderness Extremities: No tenderness or effusion, Full ROM, normal strength in all extremities (RIGHT UPPER EXTREMITY WEAKNESS AND PARTIAL PARALYSIS), No edema, Normal digits & nails Neuro/Psych: Alert/oriented, DTR's symmetric, Normal sensory exam, Normal motor strength, Judgement/insight normal, Mood normal (DEPRESSED), Normal gait, No focal deficits Misc: Normal back, No paraspinal tenderness ED Labs/Radiology/EKG Results - Lab Results Results: Abnormal Lab Results 10/10/18 10/10/18 10/10/18 11:30 11:30 11:30 WBC 6.3 RBC 2.74 L Hgb 9.3 L Hct 27.1 L MCV 98.8 MCH 34.1 H MCHC Differential 34.5 RDW 13.2 Plt Count 265 MPV 7.6 Neutrophils % 64.7 Lymphocytes % 23.1 Monocytes % 7.0 Eosinophils % 4.4 Basophils % 0.8 PT 10.4 INR 1.00 Sodium 144 Potassium 4.2 Chloride 111 H Carbon Dioxide 26.3 Anion Gap 10.9 BUN 36 H Glucose 127 H Calcium 9.2 Total Bilirubin 0.3 AST 15 ALT 12 Alkaline Phosphatase 54 Troponin I Total Protein 6.5 Albumin 3.5 L Globulin 3.0 Albumin/Globulin Ratio 1.2 Urine Source Urine Color Urine Clarity Urine pH Ur Specific [place] Urine Protein Urine Glucose (UA) Urine Ketones Urine Blood Urine Nitrate Urine Bilirubin Urine Urobilinogen Ur Leukocyte Esterase Urine RBC Urine WBC Ur Epithelial Cells Urine Bacteria Urine Opiates Screen Urine Methadone Screen Ur Barbiturates Screen Ur Tricyclics Screen Ur Phencyclidine Scrn Amphetamines Screen U Methamphetamines Scrn U Benzodiazepines Scrn U Cocaine Metab Screen U Cannabinoids Screen 10/10/18 10/10/18 10/10/18 11:30 11:48 11:48 WBC RBC Hgb Hct MCV MCH MCHC Differential RDW Plt Count MPV Neutrophils % Lymphocytes % Monocytes % Eosinophils % Basophils % PT INR Sodium Potassium Chloride Carbon Dioxide Anion Gap BUN Glucose Calcium Total Bilirubin AST ALT Alkaline Phosphatase Troponin I 0.03 Total Protein Albumin Globulin Albumin/Globulin Ratio Urine Source CLEAN C Urine Color YELLOW Urine Clarity CLEAR Urine pH 5.5 Ur Specific [place] >= 1.030 Urine Protein 100 H Urine Glucose (UA) 100 H Urine Ketones NEGATIVE Urine Blood SMALL H Urine Nitrate NEGATIVE Urine Bilirubin NEGATIVE Urine Urobilinogen 0.2 Ur Leukocyte Esterase NEGATIVE Urine RBC 0-2 H Urine WBC 0-2 Ur Epithelial Cells OCCASIONAL Urine Bacteria NONE SEEN Urine Opiates Screen POSITIVE H Urine Methadone Screen NEGATIVE Ur Barbiturates Screen NEGATIVE Ur Tricyclics Screen NEGATIVE Ur Phencyclidine Scrn NEGATIVE Amphetamines Screen NEGATIVE U Methamphetamines Scrn NEGATIVE U Benzodiazepines Scrn NEGATIVE U Cocaine Metab Screen NEGATIVE U Cannabinoids Screen POSITIVE H - Radiology Results Results: chest x-ray= nad - EKG Interpretations EKG Time:: 23:26 Rate & Rhythm: rate= 74, sinus Emporium: right ED Assessment - Assessment General Assessment: chronic pain anemia diabetic psychosis ED Septic Shock - . Is Septic Shock (SBP<90, OR Lactate>4 mmol\L) present?: No ED Reassessment (Disposition) - Reassessment Reassessment Condition:: Unchanged - Diagnosis Diagnosis:: FAILURE TO THRIVE ANEMIA DIABETES MELLITUS HYPERTENSION PSYCHOSIS - Aftercare/Follow up Instructions Notes:: PATIENT WILL NEED ADMISSION BECAUSE OF INTERMITTENT CONFUSE, ANEMIA, PSYCHOSIS, DIABETES MELLITUS, HEART DISEASE WITH PACEMAKER., BILATERAL BKA'S. THIS PATIENT WILL NEED SOCIAL SVC TO HELP PLACEMENT IN A INTERMEDIATE. THE PATIENT'S FAMILY STATES THAT THE PATIENT HE IS NOT SLEEPING, CONFUSED AND NOT EATING. - Patient Disposition Discharge/Transfer:: Acute Care w/in this hosp Admitting Medical Physician:: Yossi Baeza Condition at Disposition:: Unchanged
[2018-10-10 11:46] LABS: % BASOPHILS 0.8 % (0.0-2.0); % EOSINOPHILS 4.4 % (0.0-5.0); % LYMPHOCYTES 23.1 % (20.0-50.0); % NEUTROPHILS 64.7 % (40.0-80.0); BASOPHILE ABSOLUTE 0.1 Th/cumm (0-0.2); EOSINOPHILE ABSOLUTE 0.3 Th/cmm (0.1-0.4); HEMATOCRIT 27.1 % (41.0-60); HEMOGLOBIN 9.3 gm/dL (12-16); LYMPHOCYTE ABSOLUTE 1.5 Th/cmm (1.5-3.0); MEAN CELL VOLUME 98.8 fl (80-99); MEAN CORPUSCULAR HEMOGLOBIN 34.1 pg (26.0-30.0); MEAN CORPUSCULAR HGB CONC 34.5 pg (28.0-36.0); MEAN PLATELET VOLUME 7.6 fl; MONOCYTE ABSOLUTE 0.4 Th/cmm (0.3-1.0); PLATELET COUNT 265 Th/cmm (150-400); RED BLOOD COUNT 2.74 Mil/cmm (4.30-5.70); RED CELL DISTRIBUTION WIDTH 13.2 % (11.5-20.0); WHITE BLOOD COUNT 6.3 Th/cmm (4.8-10.8)
[2018-10-10 11:51] LABS: URINE SOURCE CLEAN C
[2018-10-10 11:54] LABS: URINE BILIRUBIN NEGATIVE (NEGATIVE); URINE BLOOD SMALL (NEGATIVE); URINE GLUCOSE (UA) 100 mg/dL (NEGATIVE); URINE KETONE NEGATIVE (NEGATIVE); URINE LEUKOCYTE ESTERASE NEGATIVE (NEGATIVE); URINE MICROSCOPIC INDICATED? YES; URINE NITRATE NEGATIVE (NEGATIVE); URINE PH 5.5 (4.6 - 8.0); URINE PROTEIN 100 mg/dL (NEGATIVE); URINE UROBILINOGEN 0.2 E.U./dL (0.2 - 1.0)
[2018-10-10 12:05] LABS: PROTHROMBIN TIME (TEST) 10.4 SECONDS (9.5-11.5)
[2018-10-10 12:07] LABS: ALB/GLOB RATIO 1.2 (1.0-1.8); ALBUMIN 3.5 gm/dL (4.2-5.5); ALKALINE PHOSPHATASE 54 U/L (34-104); ANION GAP 10.9 (7.0-16.0); BILIRUBIN,TOTAL 0.3 mg/dL (0.3-1.0); BUN - UREA NITROGEN 36 mg/dL (7-25); CALCIUM SERUM 9.2 mg/dL (8.6-10.3); CARBON DIOXIDE 26.3 mEq/L (21.0-31.0); CHLORIDE 111 mEq/L (98-107); GLUCOSE 127 mg/dL (70-105); POTASSIUM SERUM 4.2 mEq/L (3.5-5.1); SGOT 15 U/L (13-39); SGPT/ALT 12 U/L (7-52); SODIUM SERUM 144 mEq/L (136-145); TOTAL PROTEIN,SERUM 6.5 gm/dL (6.0-8.3)
[2018-10-10 12:08] LABS: URINE CLARITY CLEAR (CLEAR); URINE COLOR YELLOW; URINE RBC 0-2 /hpf (0-5); URINE WBC 0-2 /hpf (0-5)
[2018-10-10 12:09] LABS: URINE BACTERIA NONE SEEN /hpf (NONE SEEN); URINE EPITHELIAL CELLS OCCASIONAL /lpf (FEW)
[2018-10-10 12:10] LABS: AMPHETAMINE URINE NEGATIVE (NEGATIVE); BARBITURATES URINE NEGATIVE (NEGATIVE); BENZODIAZEPINES QUAL URINE NEGATIVE (NEGATIVE); CANNABINOID THC POSITIVE (NEGATIVE); COCAINE METABOLITE QUAL URINE NEGATIVE (NEGATIVE); METHADONE URINE NEGATIVE (NEGATIVE); METHAMPHETAMINES QUAL URINE NEGATIVE (NEGATIVE); OPIATES (MORPHINE) QUAL. URINE POSITIVE (NEGATIVE); PHENCYCLIDINE (PCP) URINE NEGATIVE (NEGATIVE); TRICYCLICS (TCA) QUAL. URINE NEGATIVE (NEGATIVE)
[2018-10-10 13:36] LABS: CREATININE - SERUM 1.4 mg/dL (0.7-1.3); GFR AFRICAN-AMERICAN > 60.0 ml/min (>90); GFR NON AFRICAN-AMERICAN 54.2 ml/min
[2018-10-10] MEDS ORDERED: Magnesium Hydroxide (MOM) 30 mL UDC GT PRN (15:10)
[2018-10-10] MEDS ORDERED: Hydrocodone/APAP 5mg/325mg Tab PO PRN (15:10)
[2018-10-10] MEDS ORDERED: Albuterol Nebulizer 2.5mg/3mL HHN PRN (15:13)
[2018-10-10] MEDS ORDERED: Ipratropium Neb 0.5 mg/2.5 mL UD HHN PRN (15:13)
[2018-10-10] MEDS: Saline 0.65% Nasal Spray NS SCH (16:42)
[2018-10-10] MEDS: Sodium Chloride 0.9% 1,000 ML IV SCH (16:42)
[2018-10-10] MEDS: INSULIN ASPART, RECOMBINANT 100 UNITS/ML SUBQ SCH ×2 (16:51→21:42)
--- NOTE | 2018-10-10 19:29 | History & Physical ---
ADMIT DATE: 10/10/2018 CHIEF COMPLAINT: Increasing agitation, not eating or taking his medications, refusing to use his G-tube. HISTORY OF PRESENT ILLNESS: This is a 63-year-old male with history of diabetes, hypertension, chronic obstructive pulmonary disease, status post bilateral knee amputations, wheelchair bound. Apparently he was sent home from the Psych Unit, but the family was not able to take care of the patient as he is being agitated and not being compliant with his medications, he wanted his G-tube to be taken off. Apparently, he has been licking. It is not a good situation for him at home. The patient state he is not feeling well. PAST MEDICAL HISTORY: As mentioned in history of present illness. PAST SURGICAL HISTORY: Status post bilateral below-knee amputations and pacemaker placement. ALLERGIES: CIPRO, ____ AND LATEX. MEDICATIONS: Tylenol, Norvasc, Benadryl, [place], ____ multivitamins, pantoprazole, Risperdal, Depakote, and Ambien. FAMILY HISTORY: Noncontributory. 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 3 times. No children. REVIEW OF SYSTEMS: GENERAL: Complains of not feeling well. HEENT: The patient with some blurred vision. NECK: No neck pain. LUNGS: No diagnosis of asthma. The patient with chronic obstructive pulmonary disease. HEART: The patient has hypertension. ABDOMEN: No nausea, vomiting or pain. The patient with G-tube chronically ____ EXTREMITIES: The patient with bilateral knee amputations and neuropathy. PSYCHIATRIC: The patient is bipolar. PHYSICAL EXAMINATION: VITAL SIGNS: Blood pressure 163/117, respirations 19, pulse 74, temperature 97.9. GENERAL: An elderly male, appears chronically ill. NECK: Supple. LUNGS: Equal breath sounds. Few rhonchi. HEART: Regular rate and rhythm with systolic ejection murmur. ABDOMEN: Soft and globular. Positive G-tube. EXTREMITIES: Positive excoriation and positive amputation. Wounds on the bilateral lower extremity. NEUROLOGIC: Limited. LABORATORY DATA: WBC 6, hemoglobin 9.3, and platelets 265. Sodium 144, potassium 4.2, BUN 36, creatinine 1.4, and blood sugar 127. UA positive for glucose, small ketones. U-tox positive for opiates and marijuana. ASSESSMENT AND PLAN: Increasing confusion, hypertension, electrolyte imbalance, renal insufficiency, diabetes, chronic obstructive pulmonary disease, bilateral below-knee amputations, hypercholesterolemia, status post pacer. Continue the patient on IV hydration. We will refer the patient to Psychiatry as well as GI. We will repeat her medications. We will refer the patient to wound care as well. We will continue to monitor the patient closely. [facility]# [id number]
[2018-10-10] MEDS: Hydrocodone/APAP 5mg/325mg Tab GT PRN (20:41)
[2018-10-11] MEDS: Hydrocodone/APAP 5mg/325mg Tab GT PRN ×2 (03:33→18:16)
[2018-10-11] MEDS: Sodium Chloride 0.9% 1,000 ML IV SCH (04:40)
[2018-10-11] MEDS: Pantoprazole 40 mg/Packet GT SCH (06:53)
[2018-10-11 08:10] LABS: IRON LC 49 ug/dL (38-169); TIBC (LC) 213 ug/dL (250-450); UIBC 164 ug/dL (111-343)
[2018-10-11] MEDS: INSULIN ASPART, RECOMBINANT 100 UNITS/ML SUBQ SCH ×4 (08:19→21:55)
--- NOTE | 2018-10-11 09:43 | Diagnostic Imaging Report ---
Chest x-ray single view History: Chest pressure Comparison: None The heart size is normal. No focal pulmonary parenchymal processes. No hilar or mediastinal abnormalities. Impression: No acute abnormalities
[2018-10-11] MEDS: Multivitamin w/ Minerals Tab GT SCH (10:40)
[2018-10-11] MEDS: Ferrous Sulfate 300 MG/5 ML UDC GT SCH (10:40)
[2018-10-11] MEDS: Saline 0.65% Nasal Spray NS SCH ×2 (10:40→16:34)
--- NOTE | 2018-10-11 13:18 | Internal Medicine Prog Note ---
Internal Medicine Subjective - Subjective Patient seen and examined:: with staff, chart reviewed Patient is:: awake, verbal, interactive, in wheelchair Patient Complaints of:: congestion Per staff patient has:: poor appetite, tolerating meds Internal Medicine Objective - Results Result Diagrams: 10/10/18 11:30 10/10/18 11:30 Recent Labs: Laboratory Last Values WBC 6.3 Th/cmm (4.8-10.8) 10/10/18 11:30 RBC 2.74 Mil/cmm (4.30-5.70) L 10/10/18 11:30 Hgb 9.3 gm/dL (12-16) L 10/10/18 11:30 Hct 27.1 % (41.0-60) L 10/10/18 11:30 MCV 98.8 fl (80-99) 10/10/18 11:30 MCH 34.1 pg (26.0-30.0) H 10/10/18 11:30 MCHC Differential 34.5 pg (28.0-36.0) 10/10/18 11:30 RDW 13.2 % (11.5-20.0) 10/10/18 11:30 Plt Count 265 Th/cmm (150-400) 10/10/18 11:30 MPV 7.6 fl 10/10/18 11:30 Neutrophils % 64.7 % (40.0-80.0) 10/10/18 11:30 Lymphocytes % 23.1 % (20.0-50.0) 10/10/18 11:30 Monocytes % 7.0 % (2.0-10.0) 10/10/18 11:30 Eosinophils % 4.4 % (0.0-5.0) 10/10/18 11:30 Basophils % 0.8 % (0.0-2.0) 10/10/18 11:30 PT 10.4 SECONDS (9.5-11.5) 10/10/18 11:30 INR 1.00 (0.5-1.4) 10/10/18 11:30 Sodium 144 mEq/L (136-145) 10/10/18 11:30 Potassium 4.2 mEq/L (3.5-5.1) 10/10/18 11:30 Chloride 111 mEq/L (98-107) H 10/10/18 11:30 Carbon Dioxide 26.3 mEq/L (21.0-31.0) 10/10/18 11:30 Anion Gap 10.9 (7.0-16.0) 10/10/18 11:30 BUN 36 mg/dL (7-25) H 10/10/18 11:30 Creatinine 1.4 mg/dL (0.7-1.3) H 10/10/18 11:30 Est GFR ( Amer) > 60.0 ml/min (>90) 10/10/18 11:30 Est GFR (Non-Af Amer) 54.2 ml/min 10/10/18 11:30 BUN/Creatinine Ratio 25.7 10/10/18 11:30 Glucose 127 mg/dL (70-105) H 10/10/18 11:30 POC Glucose 120 MG/DL (70 - 105) H 10/11/18 11:36 Calcium 9.2 mg/dL (8.6-10.3) 10/10/18 11:30 Iron 49 ug/dL (38-169) 10/10/18 13:00 TIBC 213 ug/dL (250-450) L 10/10/18 13:00 Iron Saturation 23 % (15-55) 10/10/18 13:00 Unsaturated IBC 164 ug/dL (111-343) 10/10/18 13:00 Total Bilirubin 0.3 mg/dL (0.3-1.0) 10/10/18 11:30 AST 15 U/L (13-39) 10/10/18 11:30 ALT 12 U/L (7-52) 10/10/18 11:30 Alkaline Phosphatase 54 U/L (34-104) 10/10/18 11:30 Troponin I 0.03 ng/mL (0.01-0.05) 10/10/18 11:30 Total Protein 6.5 gm/dL (6.0-8.3) 10/10/18 11:30 Albumin 3.5 gm/dL (4.2-5.5) L 10/10/18 11:30 Globulin 3.0 gm/dL 10/10/18 11:30 Albumin/Globulin Ratio 1.2 (1.0-1.8) 10/10/18 11:30 TSH 2.10 uIU/ml (0.34-5.60) 10/10/18 11:30 Urine Source CLEAN C 10/10/18 11:48 Urine Color YELLOW 10/10/18 11:48 Urine Clarity CLEAR (CLEAR) 10/10/18 11:48 Urine pH 5.5 (4.6 - 8.0) 10/10/18 11:48 Ur Specific [place] >= 1.030 (1.005-1.030) 10/10/18 11:48 Urine Protein 100 mg/dL (NEGATIVE) H 10/10/18 11:48 Urine Glucose (UA) 100 mg/dL (NEGATIVE) H 10/10/18 11:48 Urine Ketones NEGATIVE mg/dL (NEGATIVE) 10/10/18 11:48 Urine Blood SMALL (NEGATIVE) H 10/10/18 11:48 Urine Nitrate NEGATIVE (NEGATIVE) 10/10/18 11:48 Urine Bilirubin NEGATIVE (NEGATIVE) 10/10/18 11:48 Urine Urobilinogen 0.2 E.U./dL (0.2 - 1.0) 10/10/18 11:48 Ur Leukocyte Esterase NEGATIVE (NEGATIVE) 10/10/18 11:48 Urine RBC 0-2 /hpf (0-5) H 10/10/18 11:48 Urine WBC 0-2 /hpf (0-5) 10/10/18 11:48 Ur Epithelial Cells OCCASIONAL /lpf (FEW) 10/10/18 11:48 Urine Bacteria NONE SEEN /hpf (NONE SEEN) 10/10/18 11:48 Urine Opiates Screen POSITIVE (NEGATIVE) H 10/10/18 11:48 Urine Methadone Screen NEGATIVE (NEGATIVE) 10/10/18 11:48 Ur Barbiturates Screen NEGATIVE (NEGATIVE) 10/10/18 11:48 Ur Tricyclics Screen NEGATIVE (NEGATIVE) 10/10/18 11:48 Ur Phencyclidine Scrn NEGATIVE (NEGATIVE) 10/10/18 11:48 Amphetamines Screen NEGATIVE (NEGATIVE) 10/10/18 11:48 U Methamphetamines Scrn NEGATIVE (NEGATIVE) 10/10/18 11:48 U Benzodiazepines Scrn NEGATIVE (NEGATIVE) 10/10/18 11:48 U Cocaine Metab Screen NEGATIVE (NEGATIVE) 10/10/18 11:48 U Cannabinoids Screen POSITIVE (NEGATIVE) H 10/10/18 11:48 - Physical Exam Vitals and I&O: Vital Signs Temp 98.0 F 10/11/18 11:31 Pulse 63 10/11/18 11:31 Resp 18 10/11/18 11:31 BP 126/73 10/11/18 11:31 Pulse Ox 97 10/11/18 11:31 Intake & Output 10/10/18 10/11/18 10/11/18 18:59 06:59 18:59 Intake Total 500 957.333 Output Total 450 Balance 500 507.333 Weight (lbs) 55.792 kg 55.792 kg Intake: Intake, IV Amount 957.333 Sodium Chloride 0.9% 1, 957.333 000 ml @ 80 mls/hr IV . [id number] [facility] Rx#:[id number] Oral 500 Output: Urine 450 Other: # Voids 2 2 # Bowel Movements 1 Stool Characteristics Soft Brown Weight Source Bedscale Bedscale Active Medications: Current Medications Acetaminophen (Tylenol 650mg/20.3ml Suspension) 650 mg GT Q4HR PRN PRN Reason: Mild Pain 1-3/ Temp above 100 Stop: 12/09/18 15:09 Last Admin: 10/11/18 01:46 Dose: 650 mg Acetaminophen/Hydrocodone Bitart ([place] 5mg/325mg) 1 tab GT Q6H PRN PRN Reason: Pain (Moderate) Stop: 12/09/18 15:09 Last Admin: 10/11/18 03:33 Dose: 1 tab Albuterol Sulfate (Albuterol 2.5mg/3ml Neb Ud) 2.5 mg HHN Q2HRT PRN PRN Reason: Shortness of Breath or Wheeze Stop: 12/09/18 15:12 Amlodipine Besylate (Norvasc) 5 mg GT DAILY [facility] Stop: 12/10/18 08:59 Last Admin: 10/11/18 10:41 Dose: 5 mg Artificial Tears (Artificial Tears Ophth Soln) 2 drop EACH EYE Q6H PRN PRN Reason: DRY EYES Stop: 12/09/18 15:09 Bisacodyl (Dulcolax 10 Mg Supp) 10 mg RC DAILY PRN PRN Reason: Constipation Stop: 12/09/18 15:09 Diphenhydramine HCl (Benadryl) 50 mg GT HS PRN PRN Reason: Itching Stop: 12/09/18 15:09 Ferrous Sulfate (Iron) 300 mg GT DAILY NI Stop: 12/10/18 08:59 Last Admin: 10/11/18 10:40 Dose: 300 mg Sodium Chloride (Nacl 0.9%) 1,000 mls @ 80 mls/hr IV .[id number] NI Stop: 12/09/18 15:14 Last Admin: 10/11/18 04:40 Dose: 80 mls/hr Insulin Aspart (Novolog) 0 units SUBQ ACHS NI; Protocol Stop: 12/09/18 16:29 Last Admin: 10/11/18 12:19 Dose: Not Given Ipratropium [place] (Atrovent Neb 0.5mg/2.5ml) 0.5 mg HHN Q2HRT PRN PRN Reason: Shortness of Breath or Wheeze Stop: 12/09/18 15:12 Lorazepam (Ativan) 0.5 mg GT Q4HR PRN; Protocol PRN Reason: Anxiety Stop: 12/09/18 15:09 Magnesium Hydroxide (Milk Of Magnesia) 30 ml GT HS PRN PRN Reason: Constipation Stop: 12/09/18 15:09 Mirtazapine (Remeron) 7.5 mg GT HS [facility]; Protocol Stop: 12/09/18 20:59 Last Admin: 10/10/18 20:40 Dose: 7.5 mg Ondansetron HCl (Zofran) 4 mg IV Q8H PRN PRN Reason: Nausea / Vomiting Stop: 12/09/18 15:12 Pantoprazole Sodium (Protonix) 40 mg GT QDAC [facility] Stop: 12/10/18 07:29 Last Admin: 10/11/18 06:53 Dose: 40 mg Risperidone (Risperdal) 1 mg GT BID NI; Protocol Stop: 12/09/18 16:59 Last Admin: 10/11/18 10:40 Dose: 1 mg Sodium Chloride ([place] Nasal [place]) 45 spr NS BID [facility] Stop: 12/09/18 16:59 Last Admin: 10/10/18 16:42 Dose: 45 spr Valproate Sodium (Depakene) 250 mg GT BID NI; Protocol Stop: 12/09/18 16:59 Last Admin: 10/11/18 10:40 Dose: 250 mg Zolpidem Tartrate (Ambien) 5 mg GT HS PRN PRN Reason: Insomnia Stop: 12/09/18 15:09 General: weak, disheveled, thin HEENT: NC/AT, PERRLA, EOMI Neck: Supple, No JVD Lungs: congested, wheezing Cardiovascular: RRR, Normal S1, Normal S2 Abdomen: soft, thin, +GT Extremities: excoriation, contracture Neurological: no change, disorganized - Procedures Procedures: Procedures Procedure Code Date STELLA MUSC/FASCIA 20 SQ CM/< 73973 08/27/13 OTHER FASCIECTOMY 83.44 08/27/13 Internal Medicine Assmt/Plan - Assessment Assessment: ASSESSMENT AND PLAN: Increasing confusion, hypertension, electrolyte imbalance, renal insufficiency, diabetes, chronic obstructive pulmonary disease, bilateral below-knee amputations, hypercholesterolemia, status post pacer. - Plan Plan: Continue the patient on IV hydration. We will refer the patient to Psychiatry as well as GI. We will repeat her medications. We will refer the patient to wound care as well. We will continue to monitor the patient closely. gt removed
--- NOTE | 2018-10-12 00:44 | Consultation ---
DATE OF CONSULTATION: 10/11/2018 REQUESTING PHYSICIAN: Dr. Baeza. REASON FOR CONSULTATION: G-tube removal. HISTORY OF PRESENT ILLNESS: Thank you for asking me to see this patient in consultation. This is a 63-year-old male with a history of hypertension, diabetes, COPD, who had a G-tube placed about 2-3 months ago at which time, he was having difficulty feeding. The patient is requesting that his G-tube being removed as he is currently tolerating diet well. PAST MEDICAL HISTORY: Reviewed. PAST SURGICAL HISTORY: Status post bilateral [id number] amputations and pacemaker placement. MEDICATIONS: Reviewed. FAMILY HISTORY: Noncontributory for GI disease. SOCIAL HISTORY: He is an avid smoker. Heavy use of methamphetamines in the past. REVIEW OF SYSTEMS: As in the HPI, all of the 12-point systems are negative. PHYSICAL EXAMINATION: VITAL SIGNS: Blood pressure 163/117, respiratory rate of 19, pulse 74, temperature 97.9. GENERAL: He is an elderly man, appears chronically ill, no acute distress. HEENT: Normocephalic, atraumatic. PERRLA positive. LUNGS: Clear bilaterally. No wheezes, rales or rhonchi. ABDOMEN: Soft, nontender. Bowel sounds are positive. There was an intact G-tube seen in place. EXTREMITIES: Show no lower extremity edema. PSYCHOLOGICAL: Alert and oriented x 3. NEUROLOGIC: Grossly intact. LABORATORY DATA: White count of 6, hemoglobin 9.3, platelets of 265. Sodium 144, potassium 4.2, BUN 36, creatinine 1.4, blood sugar 127. ASSESSMENT AND PLAN: This is a 63-year-old male with multiple medical comorbidities, has had chronic G-tube in place, currently tolerating diet well, requesting G-tube be removed as well as primary requesting G-tube be removed. 1. G-tube. 2. History of [id number] amputations. 3. Diabetes and hypertension. I discussed the risks, benefits and alternatives to removing the G-tube at this time including wound infection, pain at the site and necessity for further G-tube placement in the future. The patient does admit that he wants this G-tube removed. Traction method was used to help firm in place and the G-tube was removed without any issues. This was then dressed. The gastrocutaneous fistula site was then dressed with a dry gauze and this should close within 48 hours. If this does not close within 48 hours, would recommend keeping the patient n.p.o., keep only on clear liquid diet for today and can resume regular p.o. feeds likely tomorrow or the day after. Thank you for allowing us to participate in this patient's care. JOB# [id number]
[2018-10-12] MEDS: Hydrocodone/APAP 5mg/325mg Tab GT PRN ×2 (02:50→21:52)
[2018-10-12] MEDS: INSULIN ASPART, RECOMBINANT 100 UNITS/ML SUBQ SCH ×4 (06:33→21:32)
[2018-10-12] MEDS: Pantoprazole 40 mg/Packet GT SCH (06:33)
[2018-10-12] MEDS: Ferrous Sulfate 300 MG/5 ML UDC GT SCH (09:15)
[2018-10-12] MEDS: Multivitamin w/ Minerals Tab GT SCH (09:16)
[2018-10-12] MEDS: Saline 0.65% Nasal Spray NS SCH ×2 (11:52→17:11)
[2018-10-12] MEDS: Sodium Chloride 0.9% 1,000 ML IV SCH (12:00)
--- NOTE | 2018-10-12 13:23 | Consultation ---
DATE OF CONSULTATION: 10/12/2018 PHYSICIAN REQUESTING CONSULTATION: Dr. Baeza. REASON FOR CONSULTATION: Agitated behavior. HISTORY OF PRESENT ILLNESS: This patient is known to me from previous psychiatric hospitalization treatment. The patient has been diagnosed to have mood swings and has been getting easily agitated and the patient has been referred over here for further stabilization. When I tried to interview the patient is stating that he is okay this is all the other people that have been ganging up on him. The patient has been stating that he does not like the G-tube that needs to be coming out, the patient has been having multiple medical problems and he is not able to cope with it. The patient has been having agitation and aggressive behavior. He has no insight into his illness. The patient is stating that other people's are making the stories and he should not be in here, he should be back at the facility. PAST PSYCHIATRIC HISTORY: Please refer to the above. The patient has been diagnosed to have bipolar disorder and has been maintained on the valproic acid and risperidone on the G-tube. The patient also has been getting the mirtazapine. SUBSTANCE ABUSE HISTORY: None. PHYSICAL OR SEXUAL ABUSE HISTORY: None. LEGAL PROBLEMS: None at this time. STRENGTHS AND ASSETS: The patient's strength assets: The patient is motivated. MENTAL EXAMINATION: Significant for patient being very irritable, angry and having acute mood swings. The patient, however, is denying any command hallucinations. The patient has been having impulse control problems. DIAGNOSTIC IMPRESSION: Bipolar disorder, mixed. PLAN: To continue these medications and encouraged the patient to comply with the treatment rather than to act out. JOB# [id number]
--- NOTE | 2018-10-12 13:50 | Internal Medicine Prog Note ---
Internal Medicine Subjective - Subjective Patient seen and examined:: with staff, chart reviewed Patient is:: awake, verbal, interactive, in wheelchair Patient Complaints of:: congestion Per staff patient has:: poor appetite, tolerating meds Internal Medicine Objective - Results Result Diagrams: 10/10/18 11:30 10/10/18 11:30 Recent Labs: Laboratory Last Values WBC 6.3 Th/cmm (4.8-10.8) 10/10/18 11:30 RBC 2.74 Mil/cmm (4.30-5.70) L 10/10/18 11:30 Hgb 9.3 gm/dL (12-16) L 10/10/18 11:30 Hct 27.1 % (41.0-60) L 10/10/18 11:30 MCV 98.8 fl (80-99) 10/10/18 11:30 MCH 34.1 pg (26.0-30.0) H 10/10/18 11:30 MCHC Differential 34.5 pg (28.0-36.0) 10/10/18 11:30 RDW 13.2 % (11.5-20.0) 10/10/18 11:30 Plt Count 265 Th/cmm (150-400) 10/10/18 11:30 MPV 7.6 fl 10/10/18 11:30 Neutrophils % 64.7 % (40.0-80.0) 10/10/18 11:30 Lymphocytes % 23.1 % (20.0-50.0) 10/10/18 11:30 Monocytes % 7.0 % (2.0-10.0) 10/10/18 11:30 Eosinophils % 4.4 % (0.0-5.0) 10/10/18 11:30 Basophils % 0.8 % (0.0-2.0) 10/10/18 11:30 PT 10.4 SECONDS (9.5-11.5) 10/10/18 11:30 INR 1.00 (0.5-1.4) 10/10/18 11:30 Sodium 144 mEq/L (136-145) 10/10/18 11:30 Potassium 4.2 mEq/L (3.5-5.1) 10/10/18 11:30 Chloride 111 mEq/L (98-107) H 10/10/18 11:30 Carbon Dioxide 26.3 mEq/L (21.0-31.0) 10/10/18 11:30 Anion Gap 10.9 (7.0-16.0) 10/10/18 11:30 BUN 36 mg/dL (7-25) H 10/10/18 11:30 Creatinine 1.4 mg/dL (0.7-1.3) H 10/10/18 11:30 Est GFR ( Amer) > 60.0 ml/min (>90) 10/10/18 11:30 Est GFR (Non-Af Amer) 54.2 ml/min 10/10/18 11:30 BUN/Creatinine Ratio 25.7 10/10/18 11:30 Glucose 127 mg/dL (70-105) H 10/10/18 11:30 POC Glucose 87 MG/DL (70 - 105) 10/12/18 11:31 Calcium 9.2 mg/dL (8.6-10.3) 10/10/18 11:30 Iron 49 ug/dL (38-169) 10/10/18 13:00 TIBC 213 ug/dL (250-450) L 10/10/18 13:00 Iron Saturation 23 % (15-55) 10/10/18 13:00 Unsaturated IBC 164 ug/dL (111-343) 10/10/18 13:00 Total Bilirubin 0.3 mg/dL (0.3-1.0) 10/10/18 11:30 AST 15 U/L (13-39) 10/10/18 11:30 ALT 12 U/L (7-52) 10/10/18 11:30 Alkaline Phosphatase 54 U/L (34-104) 10/10/18 11:30 Troponin I 0.03 ng/mL (0.01-0.05) 10/10/18 11:30 Total Protein 6.5 gm/dL (6.0-8.3) 10/10/18 11:30 Albumin 3.5 gm/dL (4.2-5.5) L 10/10/18 11:30 Globulin 3.0 gm/dL 10/10/18 11:30 Albumin/Globulin Ratio 1.2 (1.0-1.8) 10/10/18 11:30 TSH 2.10 uIU/ml (0.34-5.60) 10/10/18 11:30 Urine Source CLEAN C 10/10/18 11:48 Urine Color YELLOW 10/10/18 11:48 Urine Clarity CLEAR (CLEAR) 10/10/18 11:48 Urine pH 5.5 (4.6 - 8.0) 10/10/18 11:48 Ur Specific [place] >= 1.030 (1.005-1.030) 10/10/18 11:48 Urine Protein 100 mg/dL (NEGATIVE) H 10/10/18 11:48 Urine Glucose (UA) 100 mg/dL (NEGATIVE) H 10/10/18 11:48 Urine Ketones NEGATIVE mg/dL (NEGATIVE) 10/10/18 11:48 Urine Blood SMALL (NEGATIVE) H 10/10/18 11:48 Urine Nitrate NEGATIVE (NEGATIVE) 10/10/18 11:48 Urine Bilirubin NEGATIVE (NEGATIVE) 10/10/18 11:48 Urine Urobilinogen 0.2 E.U./dL (0.2 - 1.0) 10/10/18 11:48 Ur Leukocyte Esterase NEGATIVE (NEGATIVE) 10/10/18 11:48 Urine RBC 0-2 /hpf (0-5) H 10/10/18 11:48 Urine WBC 0-2 /hpf (0-5) 10/10/18 11:48 Ur Epithelial Cells OCCASIONAL /lpf (FEW) 10/10/18 11:48 Urine Bacteria NONE SEEN /hpf (NONE SEEN) 10/10/18 11:48 Urine Opiates Screen POSITIVE (NEGATIVE) H 10/10/18 11:48 Urine Methadone Screen NEGATIVE (NEGATIVE) 10/10/18 11:48 Ur Barbiturates Screen NEGATIVE (NEGATIVE) 10/10/18 11:48 Ur Tricyclics Screen NEGATIVE (NEGATIVE) 10/10/18 11:48 Ur Phencyclidine Scrn NEGATIVE (NEGATIVE) 10/10/18 11:48 Amphetamines Screen NEGATIVE (NEGATIVE) 10/10/18 11:48 U Methamphetamines Scrn NEGATIVE (NEGATIVE) 10/10/18 11:48 U Benzodiazepines Scrn NEGATIVE (NEGATIVE) 10/10/18 11:48 U Cocaine Metab Screen NEGATIVE (NEGATIVE) 10/10/18 11:48 U Cannabinoids Screen POSITIVE (NEGATIVE) H 10/10/18 11:48 - Physical Exam Vitals and I&O: Vital Signs Temp 98.1 F 10/12/18 11:59 Pulse 70 10/12/18 11:59 Resp 18 10/12/18 11:59 BP 118/46 10/12/18 11:59 Pulse Ox 96 10/12/18 11:59 Intake & Output 10/11/18 10/12/18 10/12/18 18:59 06:59 18:59 Intake Total 2200 475 Balance 2200 475 Weight (lbs) 55.701 kg 55.338 kg Intake: Intake, IV Amount 1000 Sodium Chloride 0.9% 1, 1000 000 ml @ 80 mls/hr IV . [id number] [facility] Rx#:[id number] Oral 1200 475 Other: # Voids 5 4 Stool Characteristics Soft Formed Weight Source Bedscale Bedscale Active Medications: Current Medications Acetaminophen (Tylenol 650mg/20.3ml Suspension) 650 mg GT Q4HR PRN PRN Reason: Mild Pain 1-3/ Temp above 100 Stop: 12/09/18 15:09 Last Admin: 10/11/18 01:46 Dose: 650 mg Acetaminophen/Hydrocodone Bitart ([place] 5mg/325mg) 1 tab GT Q6H PRN PRN Reason: Pain (Moderate) Stop: 12/09/18 15:09 Last Admin: 10/12/18 02:50 Dose: 1 tab Albuterol Sulfate (Albuterol 2.5mg/3ml Neb Ud) 2.5 mg HHN Q2HRT PRN PRN Reason: Shortness of Breath or Wheeze Stop: 12/09/18 15:12 Amlodipine Besylate (Norvasc) 5 mg GT DAILY [facility] Stop: 12/10/18 08:59 Last Admin: 10/12/18 09:16 Dose: 5 mg Artificial Tears (Artificial Tears Ophth Soln) 2 drop EACH EYE Q6H PRN PRN Reason: DRY EYES Stop: 12/09/18 15:09 Bisacodyl (Dulcolax 10 Mg Supp) 10 mg RC DAILY PRN PRN Reason: Constipation Stop: 12/09/18 15:09 Diphenhydramine HCl (Benadryl) 50 mg GT HS PRN PRN Reason: Itching Stop: 12/09/18 15:09 Ferrous Sulfate (Iron) 300 mg GT DAILY [facility] Stop: 12/10/18 08:59 Last Admin: 10/12/18 09:15 Dose: 300 mg Sodium Chloride (Nacl 0.9%) 1,000 mls @ 80 mls/hr IV .[id number] NI Stop: 12/09/18 15:14 Last Admin: 10/12/18 12:00 Dose: 80 mls/hr Insulin Aspart (Novolog) 0 units SUBQ ACHS NI; Protocol Stop: 12/09/18 16:29 Last Admin: 10/12/18 11:50 Dose: Not Given Ipratropium [place] (Atrovent Neb 0.5mg/2.5ml) 0.5 mg HHN Q2HRT PRN PRN Reason: Shortness of Breath or Wheeze Stop: 12/09/18 15:12 Lorazepam (Ativan) 0.5 mg GT Q4HR PRN; Protocol PRN Reason: Anxiety Stop: 12/09/18 15:09 Magnesium Hydroxide (Milk Of Magnesia) 30 ml GT HS PRN PRN Reason: Constipation Stop: 12/09/18 15:09 Mirtazapine (Remeron) 7.5 mg GT HS NI; Protocol Stop: 12/09/18 20:59 Last Admin: 10/11/18 20:22 Dose: 7.5 mg Ondansetron HCl (Zofran) 4 mg IV Q8H PRN PRN Reason: Nausea / Vomiting Stop: 12/09/18 15:12 Pantoprazole Sodium (Protonix) 40 mg GT QDAC NI Stop: 12/10/18 07:29 Last Admin: 10/12/18 06:33 Dose: 40 mg Risperidone (Risperdal) 1 mg GT BID NI; Protocol Stop: 12/09/18 16:59 Last Admin: 10/12/18 09:16 Dose: 1 mg Sodium Chloride ([place] Nasal [place]) 45 spr NS BID NI Stop: 12/09/18 16:59 Last Admin: 10/12/18 11:52 Dose: 45 spr Valproate Sodium (Depakene) 250 mg GT BID NI; Protocol Stop: 12/09/18 16:59 Last Admin: 10/12/18 09:15 Dose: 250 mg Zolpidem Tartrate (Ambien) 5 mg GT HS PRN PRN Reason: Insomnia Stop: 12/09/18 15:09 General: weak, disheveled, thin HEENT: NC/AT, PERRLA, EOMI Neck: Supple, No JVD Lungs: congested, wheezing Cardiovascular: RRR, Normal S1, Normal S2 Abdomen: soft, thin, +GT Extremities: excoriation, contracture Neurological: no change, disorganized - Procedures Procedures: Procedures Procedure Code Date STELLA MUSC/FASCIA 20 SQ CM/< 44179 08/27/13 OTHER FASCIECTOMY 83.44 08/27/13 Internal Medicine Assmt/Plan - Assessment Assessment: ASSESSMENT AND PLAN: Increasing confusion, hypertension, electrolyte imbalance, renal insufficiency, diabetes, chronic obstructive pulmonary disease, bilateral below-knee amputations, hypercholesterolemia, status post pacer. - Plan Plan: Continue the patient on IV hydration. We will refer the patient to Psychiatry as well as GI. We will repeat her medications. We will refer the patient to wound care as well. We will continue to monitor the patient closely. gt removed
--- NOTE | 2018-10-12 17:59 | GI Progress Note ---
Subjective - Review of Systems Service Date: 10/12/18 Events since last encounter: No events, gc fistula closing up nicely Objective - Results Result Diagrams: 10/10/18 11:30 10/10/18 11:30 Recent Labs: Laboratory Last Values WBC 6.3 Th/cmm (4.8-10.8) 10/10/18 11:30 RBC 2.74 Mil/cmm (4.30-5.70) L 10/10/18 11:30 Hgb 9.3 gm/dL (12-16) L 10/10/18 11:30 Hct 27.1 % (41.0-60) L 10/10/18 11:30 MCV 98.8 fl (80-99) 10/10/18 11:30 MCH 34.1 pg (26.0-30.0) H 10/10/18 11:30 MCHC Differential 34.5 pg (28.0-36.0) 10/10/18 11:30 RDW 13.2 % (11.5-20.0) 10/10/18 11:30 Plt Count 265 Th/cmm (150-400) 10/10/18 11:30 MPV 7.6 fl 10/10/18 11:30 Neutrophils % 64.7 % (40.0-80.0) 10/10/18 11:30 Lymphocytes % 23.1 % (20.0-50.0) 10/10/18 11:30 Monocytes % 7.0 % (2.0-10.0) 10/10/18 11:30 Eosinophils % 4.4 % (0.0-5.0) 10/10/18 11:30 Basophils % 0.8 % (0.0-2.0) 10/10/18 11:30 PT 10.4 SECONDS (9.5-11.5) 10/10/18 11:30 INR 1.00 (0.5-1.4) 10/10/18 11:30 Sodium 144 mEq/L (136-145) 10/10/18 11:30 Potassium 4.2 mEq/L (3.5-5.1) 10/10/18 11:30 Chloride 111 mEq/L (98-107) H 10/10/18 11:30 Carbon Dioxide 26.3 mEq/L (21.0-31.0) 10/10/18 11:30 Anion Gap 10.9 (7.0-16.0) 10/10/18 11:30 BUN 36 mg/dL (7-25) H 10/10/18 11:30 Creatinine 1.4 mg/dL (0.7-1.3) H 10/10/18 11:30 Est GFR ( Amer) > 60.0 ml/min (>90) 10/10/18 11:30 Est GFR (Non-Af Amer) 54.2 ml/min 10/10/18 11:30 BUN/Creatinine Ratio 25.7 10/10/18 11:30 Glucose 127 mg/dL (70-105) H 10/10/18 11:30 POC Glucose 88 MG/DL (70 - 105) 10/12/18 17:05 Calcium 9.2 mg/dL (8.6-10.3) 10/10/18 11:30 Iron 49 ug/dL (38-169) 10/10/18 13:00 TIBC 213 ug/dL (250-450) L 10/10/18 13:00 Iron Saturation 23 % (15-55) 10/10/18 13:00 Unsaturated IBC 164 ug/dL (111-343) 10/10/18 13:00 Total Bilirubin 0.3 mg/dL (0.3-1.0) 10/10/18 11:30 AST 15 U/L (13-39) 10/10/18 11:30 ALT 12 U/L (7-52) 10/10/18 11:30 Alkaline Phosphatase 54 U/L (34-104) 10/10/18 11:30 Troponin I 0.03 ng/mL (0.01-0.05) 10/10/18 11:30 Total Protein 6.5 gm/dL (6.0-8.3) 10/10/18 11:30 Albumin 3.5 gm/dL (4.2-5.5) L 10/10/18 11:30 Globulin 3.0 gm/dL 10/10/18 11:30 Albumin/Globulin Ratio 1.2 (1.0-1.8) 10/10/18 11:30 TSH 2.10 uIU/ml (0.34-5.60) 10/10/18 11:30 Urine Source CLEAN C 10/10/18 11:48 Urine Color YELLOW 10/10/18 11:48 Urine Clarity CLEAR (CLEAR) 10/10/18 11:48 Urine pH 5.5 (4.6 - 8.0) 10/10/18 11:48 Ur Specific [place] >= 1.030 (1.005-1.030) 10/10/18 11:48 Urine Protein 100 mg/dL (NEGATIVE) H 10/10/18 11:48 Urine Glucose (UA) 100 mg/dL (NEGATIVE) H 10/10/18 11:48 Urine Ketones NEGATIVE mg/dL (NEGATIVE) 10/10/18 11:48 Urine Blood SMALL (NEGATIVE) H 10/10/18 11:48 Urine Nitrate NEGATIVE (NEGATIVE) 10/10/18 11:48 Urine Bilirubin NEGATIVE (NEGATIVE) 10/10/18 11:48 Urine Urobilinogen 0.2 E.U./dL (0.2 - 1.0) 10/10/18 11:48 Ur Leukocyte Esterase NEGATIVE (NEGATIVE) 10/10/18 11:48 Urine RBC 0-2 /hpf (0-5) H 10/10/18 11:48 Urine WBC 0-2 /hpf (0-5) 10/10/18 11:48 Ur Epithelial Cells OCCASIONAL /lpf (FEW) 10/10/18 11:48 Urine Bacteria NONE SEEN /hpf (NONE SEEN) 10/10/18 11:48 Urine Opiates Screen POSITIVE (NEGATIVE) H 10/10/18 11:48 Urine Methadone Screen NEGATIVE (NEGATIVE) 10/10/18 11:48 Ur Barbiturates Screen NEGATIVE (NEGATIVE) 10/10/18 11:48 Ur Tricyclics Screen NEGATIVE (NEGATIVE) 10/10/18 11:48 Ur Phencyclidine Scrn NEGATIVE (NEGATIVE) 10/10/18 11:48 Amphetamines Screen NEGATIVE (NEGATIVE) 10/10/18 11:48 U Methamphetamines Scrn NEGATIVE (NEGATIVE) 10/10/18 11:48 U Benzodiazepines Scrn NEGATIVE (NEGATIVE) 10/10/18 11:48 U Cocaine Metab Screen NEGATIVE (NEGATIVE) 10/10/18 11:48 U Cannabinoids Screen POSITIVE (NEGATIVE) H 10/10/18 11:48 - Physical Exam Vitals and I&O: Vital Signs Temp 98.0 F 10/12/18 16:06 Pulse 75 10/12/18 16:06 Resp 18 10/12/18 16:06 BP 139/66 10/12/18 16:06 Pulse Ox 96 10/12/18 16:06 Intake & Output 10/11/18 10/12/18 10/12/18 18:59 06:59 18:59 Intake Total 2200 475 Balance 2200 475 Weight (lbs) 55.701 kg 55.338 kg Intake: Intake, IV Amount 1000 Sodium Chloride 0.9% 1, 1000 000 ml @ 80 mls/hr IV . [id number] [facility] Rx#:[id number] Oral 1200 475 Other: # Voids 5 4 Stool Characteristics Soft Formed Weight Source Bedscale Bedscale Active Medications: Current Medications Acetaminophen (Tylenol 650mg/20.3ml Suspension) 650 mg GT Q4HR PRN PRN Reason: Mild Pain 1-3/ Temp above 100 Stop: 12/09/18 15:09 Last Admin: 10/11/18 01:46 Dose: 650 mg Acetaminophen/Hydrocodone Bitart ([place] 5mg/325mg) 1 tab GT Q6H PRN PRN Reason: Pain (Moderate) Stop: 12/09/18 15:09 Last Admin: 10/12/18 02:50 Dose: 1 tab Albuterol Sulfate (Albuterol 2.5mg/3ml Neb Ud) 2.5 mg HHN Q2HRT PRN PRN Reason: Shortness of Breath or Wheeze Stop: 12/09/18 15:12 Amlodipine Besylate (Norvasc) 5 mg GT DAILY [facility] Stop: 12/10/18 08:59 Last Admin: 10/12/18 09:16 Dose: 5 mg Artificial Tears (Artificial Tears Ophth Soln) 2 drop EACH EYE Q6H PRN PRN Reason: DRY EYES Stop: 12/09/18 15:09 Bisacodyl (Dulcolax 10 Mg Supp) 10 mg RC DAILY PRN PRN Reason: Constipation Stop: 12/09/18 15:09 Diphenhydramine HCl (Benadryl) 50 mg GT HS PRN PRN Reason: Itching Stop: 12/09/18 15:09 Ferrous Sulfate (Iron) 300 mg GT DAILY [facility] Stop: 12/10/18 08:59 Last Admin: 10/12/18 09:15 Dose: 300 mg Sodium Chloride (Nacl 0.9%) 1,000 mls @ 80 mls/hr IV .[id number] NI Stop: 12/09/18 15:14 Last Admin: 10/12/18 12:00 Dose: 80 mls/hr Insulin Aspart (Novolog) 0 units SUBQ ACHS [facility]; Protocol Stop: 12/09/18 16:29 Last Admin: 10/12/18 17:07 Dose: Not Given Ipratropium [place] (Atrovent Neb 0.5mg/2.5ml) 0.5 mg HHN Q2HRT PRN PRN Reason: Shortness of Breath or Wheeze Stop: 12/09/18 15:12 Lorazepam (Ativan) 0.5 mg GT Q4HR PRN; Protocol PRN Reason: Anxiety Stop: 12/09/18 15:09 Magnesium Hydroxide (Milk Of Magnesia) 30 ml GT HS PRN PRN Reason: Constipation Stop: 12/09/18 15:09 Mirtazapine (Remeron) 7.5 mg GT HS [facility]; Protocol Stop: 12/09/18 20:59 Last Admin: 10/11/18 20:22 Dose: 7.5 mg Ondansetron HCl (Zofran) 4 mg IV Q8H PRN PRN Reason: Nausea / Vomiting Stop: 12/09/18 15:12 Pantoprazole Sodium (Protonix) 40 mg GT QDAC [facility] Stop: 12/10/18 07:29 Last Admin: 10/12/18 06:33 Dose: 40 mg Risperidone (Risperdal) 1 mg GT BID [facility]; Protocol Stop: 12/09/18 16:59 Last Admin: 10/12/18 17:10 Dose: 1 mg Sodium Chloride ([place] Nasal [place]) 45 spr NS BID NI Stop: 12/09/18 16:59 Last Admin: 10/12/18 17:11 Dose: 45 spr Valproate Sodium (Depakene) 250 mg GT BID [facility]; Protocol Stop: 12/09/18 16:59 Last Admin: 10/12/18 17:10 Dose: 250 mg Zolpidem Tartrate (Ambien) 5 mg GT HS PRN PRN Reason: Insomnia Stop: 12/09/18 15:09 General: Oriented x3 HEENT: Atraumatic, PERRLA, EOMI Neck: Supple, JVD, Thyromegaly Cardiovascular: Regular rate Abdomen: Bowel sounds, Soft, Tender Extremities: Clubbing, Edema, Pulses - Procedures Procedures: Procedures Procedure Code Date STELLA MUSC/FASCIA 20 SQ CM/< 10055 08/27/13 OTHER FASCIECTOMY 83.44 08/27/13 Assessment/Plan - Assessment Assessment: 1. G tube removal 2. Hx of psychosis -G tube site should close within next 24 hours, if not may need to keep NPO -okay to advance to soft diet today -Monitor
[2018-10-13] MEDS: Hydrocodone/APAP 5mg/325mg Tab GT PRN ×2 (05:08→20:29)
[2018-10-13 05:33] LABS: MEAN CELL VOLUME 100.2 fl (80-99); MEAN CORPUSCULAR HEMOGLOBIN 34.2 pg (26.0-30.0); MEAN CORPUSCULAR HGB CONC 34.2 pg (28.0-36.0); MEAN PLATELET VOLUME 8.3 fl; PLATELET COUNT 172 Th/cmm (150-400); RED BLOOD COUNT 2.22 Mil/cmm (4.30-5.70); RED CELL DISTRIBUTION WIDTH 13.2 % (11.5-20.0); WHITE BLOOD COUNT 4.2 Th/cmm (4.8-10.8)
[2018-10-13 05:42] LABS: HEMATOCRIT 22.3 % (41.0-60)
[2018-10-13 05:43] LABS: % BASOPHILS 1.1 % (0.0-2.0); % EOSINOPHILS 5.1 % (0.0-5.0); % LYMPHOCYTES 31.2 % (20.0-50.0); % MONOCYTES 9.1 % (2.0-10.0); % NEUTROPHILS 53.5 % (40.0-80.0); EOSINOPHILE ABSOLUTE 0.2 Th/cmm (0.1-0.4); LYMPHOCYTE ABSOLUTE 1.3 Th/cmm (1.5-3.0); MONOCYTE ABSOLUTE 0.4 Th/cmm (0.3-1.0); NEUTROPHILE ABSOLUTE 2.3 Th/cmm (1.8-8.0)
[2018-10-13 06:05] LABS: ALB/GLOB RATIO 1.1 (1.0-1.8); ALBUMIN 2.7 gm/dL (4.2-5.5); ALKALINE PHOSPHATASE 42 U/L (34-104); ANION GAP 10.8 (7.0-16.0); BILIRUBIN,TOTAL 0.2 mg/dL (0.3-1.0); BUN - UREA NITROGEN 23 mg/dL (7-25); CALCIUM SERUM 7.6 mg/dL (8.6-10.3); CARBON DIOXIDE 22.3 mEq/L (21.0-31.0); CHLORIDE 111 mEq/L (98-107); CREATININE - SERUM 1.4 mg/dL (0.7-1.3); GFR AFRICAN-AMERICAN > 60.0 ml/min (>90); GFR NON AFRICAN-AMERICAN 54.2 ml/min; GLUCOSE 150 mg/dL (70-105); POTASSIUM SERUM 4.1 mEq/L (3.5-5.1); SGOT 13 U/L (13-39); SGPT/ALT 10 U/L (7-52); SODIUM SERUM 140 mEq/L (136-145); TOTAL PROTEIN,SERUM 5.2 gm/dL (6.0-8.3)
[2018-10-13] MEDS: Pantoprazole 40 mg/Packet GT SCH (06:33)
[2018-10-13 06:56] LABS: HEMOGLOBIN 7.6 gm/dL (12-16)
[2018-10-13 07:18] LABS: BAND NEUTROPHILE 2 % (0-10); EOSINOPHIL 4 % (0-5); LYMPHOCYTE 28 % (20-50); MONOCYTE 8 % (2-10); NEUTROPHILS 58 % (40-80)
[2018-10-13 07:19] LABS: BASOPHIL 0 % (0-3)
[2018-10-13] MEDS: INSULIN ASPART, RECOMBINANT 100 UNITS/ML SUBQ SCH ×4 (07:40→20:54)
[2018-10-13] MEDS: Saline 0.65% Nasal Spray NS SCH ×2 (09:48→16:28)
[2018-10-13] MEDS: Ferrous Sulfate 300 MG/5 ML UDC GT SCH (09:48)
[2018-10-13] MEDS: Multivitamin w/ Minerals Tab GT SCH (09:48)
--- NOTE | 2018-10-13 11:44 | GI Progress Note ---
Subjective - Review of Systems Service Date: 10/13/18 Events since last encounter: No events, patient feels very well he states and eating well Objective - Results Result Diagrams: 10/13/18 04:35 10/13/18 04:35 Recent Labs: Laboratory Last Values WBC 4.2 Th/cmm (4.8-10.8) L 10/13/18 04:35 RBC 2.22 Mil/cmm (4.30-5.70) L 10/13/18 04:35 Hgb 7.6 gm/dL (12-16) L* 10/13/18 04:35 Hct 22.3 % (41.0-60) L 10/13/18 04:35 MCV 100.2 fl (80-99) H 10/13/18 04:35 MCH 34.2 pg (26.0-30.0) H 10/13/18 04:35 MCHC Differential 34.2 pg (28.0-36.0) 10/13/18 04:35 RDW 13.2 % (11.5-20.0) 10/13/18 04:35 Plt Count 172 Th/cmm (150-400) 10/13/18 04:35 MPV 8.3 fl 10/13/18 04:35 Add Manual Diff YES 10/13/18 04:35 Neutrophils % 53.5 % (40.0-80.0) 10/13/18 04:35 Band Neutrophils % 2 % (0-10) 10/13/18 04:35 Lymphocytes % 31.2 % (20.0-50.0) 10/13/18 04:35 Monocytes % 9.1 % (2.0-10.0) 10/13/18 04:35 Eosinophils % 5.1 % (0.0-5.0) H 10/13/18 04:35 Basophils % 1.1 % (0.0-2.0) 10/13/18 04:35 Neutrophils (Manual) 58 % (40-80) 10/13/18 04:35 Lymphocytes 28 % (20-50) 10/13/18 04:35 Monocytes 8 % (2-10) 10/13/18 04:35 Eosinophils 4 % (0-5) 10/13/18 04:35 Basophils 0 % (0-3) 10/13/18 04:35 PT 10.4 SECONDS (9.5-11.5) 10/10/18 11:30 INR 1.00 (0.5-1.4) 10/10/18 11:30 Sodium 140 mEq/L (136-145) 10/13/18 04:35 Potassium 4.1 mEq/L (3.5-5.1) 10/13/18 04:35 Chloride 111 mEq/L (98-107) H 10/13/18 04:35 Carbon Dioxide 22.3 mEq/L (21.0-31.0) 10/13/18 04:35 Anion Gap 10.8 (7.0-16.0) 10/13/18 04:35 BUN 23 mg/dL (7-25) 10/13/18 04:35 Creatinine 1.4 mg/dL (0.7-1.3) H 10/13/18 04:35 Est GFR ( Amer) > 60.0 ml/min (>90) 10/13/18 04:35 Est GFR (Non-Af Amer) 54.2 ml/min 10/13/18 04:35 BUN/Creatinine Ratio 16.4 10/13/18 04:35 Glucose 150 mg/dL (70-105) H 10/13/18 04:35 POC Glucose 86 MG/DL (70 - 105) 10/12/18 21:27 Calcium 7.6 mg/dL (8.6-10.3) L 10/13/18 04:35 Iron 49 ug/dL (38-169) 10/10/18 13:00 TIBC 213 ug/dL (250-450) L 10/10/18 13:00 Iron Saturation 23 % (15-55) 10/10/18 13:00 Unsaturated IBC 164 ug/dL (111-343) 10/10/18 13:00 Total Bilirubin 0.2 mg/dL (0.3-1.0) L 10/13/18 04:35 AST 13 U/L (13-39) 10/13/18 04:35 ALT 10 U/L (7-52) 10/13/18 04:35 Alkaline Phosphatase 42 U/L (34-104) 10/13/18 04:35 Ammonia 51 umol/L (16-53) 10/13/18 04:35 Troponin I 0.03 ng/mL (0.01-0.05) 10/10/18 11:30 B-Natriuretic Peptide 169.0 pg/mL (5.0-100.0) H 10/13/18 04:35 Total Protein 5.2 gm/dL (6.0-8.3) L 10/13/18 04:35 Albumin 2.7 gm/dL (4.2-5.5) L 10/13/18 04:35 Globulin 2.5 gm/dL 10/13/18 04:35 Albumin/Globulin Ratio 1.1 (1.0-1.8) 10/13/18 04:35 TSH 2.10 uIU/ml (0.34-5.60) 10/10/18 11:30 Urine Source CLEAN C 10/10/18 11:48 Urine Color YELLOW 10/10/18 11:48 Urine Clarity CLEAR (CLEAR) 10/10/18 11:48 Urine pH 5.5 (4.6 - 8.0) 10/10/18 11:48 Ur Specific [place] >= 1.030 (1.005-1.030) 10/10/18 11:48 Urine Protein 100 mg/dL (NEGATIVE) H 10/10/18 11:48 Urine Glucose (UA) 100 mg/dL (NEGATIVE) H 10/10/18 11:48 Urine Ketones NEGATIVE mg/dL (NEGATIVE) 10/10/18 11:48 Urine Blood SMALL (NEGATIVE) H 10/10/18 11:48 Urine Nitrate NEGATIVE (NEGATIVE) 10/10/18 11:48 Urine Bilirubin NEGATIVE (NEGATIVE) 10/10/18 11:48 Urine Urobilinogen 0.2 E.U./dL (0.2 - 1.0) 10/10/18 11:48 Ur Leukocyte Esterase NEGATIVE (NEGATIVE) 10/10/18 11:48 Urine RBC 0-2 /hpf (0-5) H 10/10/18 11:48 Urine WBC 0-2 /hpf (0-5) 10/10/18 11:48 Ur Epithelial Cells OCCASIONAL /lpf (FEW) 10/10/18 11:48 Urine Bacteria NONE SEEN /hpf (NONE SEEN) 10/10/18 11:48 Urine Opiates Screen POSITIVE (NEGATIVE) H 10/10/18 11:48 Urine Methadone Screen NEGATIVE (NEGATIVE) 10/10/18 11:48 Ur Barbiturates Screen NEGATIVE (NEGATIVE) 10/10/18 11:48 Ur Tricyclics Screen NEGATIVE (NEGATIVE) 10/10/18 11:48 Ur Phencyclidine Scrn NEGATIVE (NEGATIVE) 10/10/18 11:48 Amphetamines Screen NEGATIVE (NEGATIVE) 10/10/18 11:48 U Methamphetamines Scrn NEGATIVE (NEGATIVE) 10/10/18 11:48 U Benzodiazepines Scrn NEGATIVE (NEGATIVE) 10/10/18 11:48 U Cocaine Metab Screen NEGATIVE (NEGATIVE) 10/10/18 11:48 U Cannabinoids Screen POSITIVE (NEGATIVE) H 10/10/18 11:48 - Physical Exam Vitals and I&O: Vital Signs Temp 97.6 F 10/13/18 08:53 Pulse 77 10/13/18 09:48 Resp 17 10/13/18 08:53 BP 170/66 10/13/18 09:48 Pulse Ox 96 10/13/18 08:53 Intake & Output 10/12/18 10/13/18 10/13/18 18:59 06:59 18:59 Intake Total 1520 Output Total 1000 Balance 520 Weight (lbs) 56.245 kg Intake: Oral 1520 Output: Urine 1000 Other: # Voids 3 # Bowel Movements 0 Stool Characteristics Soft Soft Formed Formed Weight Source Bedscale Active Medications: Current Medications Acetaminophen (Tylenol 650mg/20.3ml Suspension) 650 mg GT Q4HR PRN PRN Reason: Mild Pain 1-3/ Temp above 100 Stop: 12/09/18 15:09 Last Admin: 10/11/18 01:46 Dose: 650 mg Acetaminophen/Hydrocodone Bitart ([place] 5mg/325mg) 1 tab GT Q6H PRN PRN Reason: Pain (Moderate) Stop: 12/09/18 15:09 Last Admin: 10/13/18 05:08 Dose: 1 tab Albuterol Sulfate (Albuterol 2.5mg/3ml Neb Ud) 2.5 mg HHN Q2HRT PRN PRN Reason: Shortness of Breath or Wheeze Stop: 12/09/18 15:12 Amlodipine Besylate (Norvasc) 5 mg GT DAILY [facility] Stop: 12/10/18 08:59 Last Admin: 10/13/18 09:48 Dose: 5 mg Artificial Tears (Artificial Tears Ophth Soln) 2 drop EACH EYE Q6H PRN PRN Reason: DRY EYES Stop: 12/09/18 15:09 Bisacodyl (Dulcolax 10 Mg Supp) 10 mg RC DAILY PRN PRN Reason: Constipation Stop: 12/09/18 15:09 Diphenhydramine HCl (Benadryl) 50 mg GT HS PRN PRN Reason: Itching Stop: 12/09/18 15:09 Ferrous Sulfate (Iron) 300 mg GT DAILY [facility] Stop: 12/10/18 08:59 Last Admin: 10/13/18 09:48 Dose: 300 mg Sodium Chloride (Nacl 0.9%) 1,000 mls @ 80 mls/hr IV .[id number] [facility] Stop: 12/09/18 15:14 Last Admin: 10/12/18 12:00 Dose: 80 mls/hr Insulin Aspart (Novolog) 0 units SUBQ ACHS [facility]; Protocol Stop: 12/09/18 16:29 Last Admin: 10/12/18 21:32 Dose: Not Given Ipratropium [place] (Atrovent Neb 0.5mg/2.5ml) 0.5 mg HHN Q2HRT PRN PRN Reason: Shortness of Breath or Wheeze Stop: 12/09/18 15:12 Lorazepam (Ativan) 0.5 mg GT Q4HR PRN; Protocol PRN Reason: Anxiety Stop: 12/09/18 15:09 Magnesium Hydroxide (Milk Of Magnesia) 30 ml GT HS PRN PRN Reason: Constipation Stop: 12/09/18 15:09 Mirtazapine (Remeron) 7.5 mg GT HS [facility]; Protocol Stop: 12/09/18 20:59 Last Admin: 10/12/18 21:53 Dose: 7.5 mg Ondansetron HCl (Zofran) 4 mg IV Q8H PRN PRN Reason: Nausea / Vomiting Stop: 12/09/18 15:12 Pantoprazole Sodium (Protonix) 40 mg GT QDAC [facility] Stop: 12/10/18 07:29 Last Admin: 10/13/18 06:33 Dose: 40 mg Risperidone (Risperdal) 1 mg GT BID [facility]; Protocol Stop: 12/09/18 16:59 Last Admin: 10/13/18 09:48 Dose: 1 mg Sodium Chloride ([place] Nasal [place]) 45 spr NS BID [facility] Stop: 12/09/18 16:59 Last Admin: 10/13/18 09:48 Dose: 45 spr Valproate Sodium (Depakene) 250 mg GT BID [facility]; Protocol Stop: 12/09/18 16:59 Last Admin: 10/13/18 09:48 Dose: 250 mg Zolpidem Tartrate (Ambien) 5 mg GT HS PRN PRN Reason: Insomnia Stop: 12/09/18 15:09 General: Oriented x3 HEENT: Atraumatic, PERRLA, EOMI Neck: Supple, JVD, Thyromegaly Cardiovascular: Regular rate Abdomen: Bowel sounds, Soft, Tender Extremities: Clubbing, Edema, Pulses - Procedures Procedures: Procedures Procedure Code Date STELLA MUSC/FASCIA 20 SQ CM/< 55837 08/27/13 OTHER FASCIECTOMY 83.44 08/27/13 Assessment/Plan - Assessment Assessment: 1. G tube removal 2. Hx of psychosis -G tube site should close within next 24 hours, if not may need to keep NPO -tolerating soft diet -No further input at this time from GI Please call however if any questions or concerns
[2018-10-13] MEDS: Ferrous Sulfate 325 MG TAB PO SCH ×2 (14:20→20:53)
--- NOTE | 2018-10-13 15:18 | Discharge Summary ---
DATE OF DISCHARGE: 10/13/2018 CHIEF COMPLAINT: Not taking medication ____ G-tube. FINAL DIAGNOSES: 1. Increasing confusion, which is improved. 2. Hypertension, uncontrolled, which is improved. 3. Electrolyte imbalance. 4. G-tube secondary dysphagia, which is improved. G-tube removal. 5. Chronic obstructive pulmonary disease. 6. Bilateral below-knee amputations. 7. Hypercholesterolemia. 8. Anemia. 9. Status post pacemaker. HISTORY: This is a 63-year-old male with history of diabetes, hypertension, COPD, status post bilateral below-knee amputation, wheelchair bound, who brought here from home as the patient is not taking his medication, refused to have his G-tube use. The patient was assessed in the ER and admitted for further management. PHYSICAL EXAMINATION: VITAL SIGNS: Blood pressure 130/54, respiration 18, pulse 79, temperature 97.0. GENERAL: Elderly male who appears his stated age, in a wheelchair, uses a leg brace, able to get in and out of his wheelchair. NECK: Supple. No mass. LUNGS: Equal breath sounds, few rhonchi. HEART: Regular rate and rhythm with systolic ejection murmur. ABDOMEN: Soft, globular. EXTREMITIES: Positive excoriations. NEUROLOGIC: Limited. HOSPITAL COURSE: The patient was admitted to medical floor, continued on IV hydration. The patient referred Dr. Milan for GI. G-tube was removed without any complication. Dr. Pringle follows the patient for Psychiatry. Medications were adjusted. The patient wanted to go home. Hemoglobin depressed secondary to being given hydration. The patient to follow up with GI on outpatient basis as well as his primary care doctor and Psychiatry. CONDITION ON DISCHARGE: Fair. DISCHARGE INSTRUCTIONS: The patient again to follow up with Gastroenterology, his primary care doctor and Psychiatry. Ideally, the patient wants to go home, the other option is a care home facility. JOB# [id number]
--- NOTE | 2018-10-13 21:37 | Progress Notes ---
DATE: 10/13/2018 PSYCHIATRIC PROGRESS NOTE SUBJECTIVE: Staff was spoken to. The patient is interviewed. Mood is noted to be irritable. Affect is constricted. The patient is stating that there is nothing wrong with him and we kept on sending him to the hospital. He also has been having difficult time to cope with the stress. The patient is very impulsive at this time and has been having mood swings. He wants to have ____. ASSESSMENT: The patient is still impulsive and agitated. PLAN: To continue the patient with the supportive therapy and encouraged the patient to verbalize the concerns rather than to act out. [facility]# [id number]
[2018-10-14] MEDS: Pantoprazole 40 mg/Packet GT SCH (06:41)
[2018-10-14] MEDS: INSULIN ASPART, RECOMBINANT 100 UNITS/ML SUBQ SCH ×4 (06:59→21:05)
[2018-10-14] MEDS: Hydrocodone/APAP 5mg/325mg Tab GT PRN ×3 (09:00→22:34)
[2018-10-14] MEDS: Multivitamin w/ Minerals Tab GT SCH (09:01)
[2018-10-14] MEDS: Polyvinyl Alcohol Ophth Soln 15 mL Bottle EACH EYE PRN (09:02)
[2018-10-14] MEDS: Saline 0.65% Nasal Spray NS SCH ×2 (09:02→16:31)
[2018-10-14] MEDS: Ferrous Sulfate 325 MG TAB PO SCH ×3 (09:02→20:55)
--- NOTE | 2018-10-14 13:06 | Internal Medicine Prog Note ---
Internal Medicine Subjective - Subjective Patient seen and examined:: with staff, chart reviewed, other (apparently, family does not want pt home, placement issues) Patient is:: awake, verbal, interactive, in wheelchair Patient Complaints of:: congestion Per staff patient has:: poor appetite, tolerating meds Internal Medicine Objective - Results Result Diagrams: 10/13/18 04:35 10/13/18 04:35 Recent Labs: Laboratory Last Values WBC 4.2 Th/cmm (4.8-10.8) L 10/13/18 04:35 RBC 2.22 Mil/cmm (4.30-5.70) L 10/13/18 04:35 Hgb 7.6 gm/dL (12-16) L* 10/13/18 04:35 Hct 22.3 % (41.0-60) L 10/13/18 04:35 MCV 100.2 fl (80-99) H 10/13/18 04:35 MCH 34.2 pg (26.0-30.0) H 10/13/18 04:35 MCHC Differential 34.2 pg (28.0-36.0) 10/13/18 04:35 RDW 13.2 % (11.5-20.0) 10/13/18 04:35 Plt Count 172 Th/cmm (150-400) 10/13/18 04:35 MPV 8.3 fl 10/13/18 04:35 Add Manual Diff YES 10/13/18 04:35 Neutrophils % 53.5 % (40.0-80.0) 10/13/18 04:35 Band Neutrophils % 2 % (0-10) 10/13/18 04:35 Lymphocytes % 31.2 % (20.0-50.0) 10/13/18 04:35 Monocytes % 9.1 % (2.0-10.0) 10/13/18 04:35 Eosinophils % 5.1 % (0.0-5.0) H 10/13/18 04:35 Basophils % 1.1 % (0.0-2.0) 10/13/18 04:35 Neutrophils (Manual) 58 % (40-80) 10/13/18 04:35 Lymphocytes 28 % (20-50) 10/13/18 04:35 Monocytes 8 % (2-10) 10/13/18 04:35 Eosinophils 4 % (0-5) 10/13/18 04:35 Basophils 0 % (0-3) 10/13/18 04:35 PT 10.4 SECONDS (9.5-11.5) 10/10/18 11:30 INR 1.00 (0.5-1.4) 10/10/18 11:30 Sodium 140 mEq/L (136-145) 10/13/18 04:35 Potassium 4.1 mEq/L (3.5-5.1) 10/13/18 04:35 Chloride 111 mEq/L (98-107) H 10/13/18 04:35 Carbon Dioxide 22.3 mEq/L (21.0-31.0) 10/13/18 04:35 Anion Gap 10.8 (7.0-16.0) 10/13/18 04:35 BUN 23 mg/dL (7-25) 10/13/18 04:35 Creatinine 1.4 mg/dL (0.7-1.3) H 10/13/18 04:35 Est GFR ( Amer) > 60.0 ml/min (>90) 10/13/18 04:35 Est GFR (Non-Af Amer) 54.2 ml/min 10/13/18 04:35 BUN/Creatinine Ratio 16.4 10/13/18 04:35 Glucose 150 mg/dL (70-105) H 10/13/18 04:35 POC Glucose 133 MG/DL (70 - 105) H 10/14/18 11:45 Calcium 7.6 mg/dL (8.6-10.3) L 10/13/18 04:35 Iron 49 ug/dL (38-169) 10/10/18 13:00 TIBC 213 ug/dL (250-450) L 10/10/18 13:00 Iron Saturation 23 % (15-55) 10/10/18 13:00 Unsaturated IBC 164 ug/dL (111-343) 10/10/18 13:00 Total Bilirubin 0.2 mg/dL (0.3-1.0) L 10/13/18 04:35 AST 13 U/L (13-39) 10/13/18 04:35 ALT 10 U/L (7-52) 10/13/18 04:35 Alkaline Phosphatase 42 U/L (34-104) 10/13/18 04:35 Ammonia 51 umol/L (16-53) 10/13/18 04:35 Troponin I 0.03 ng/mL (0.01-0.05) 10/10/18 11:30 B-Natriuretic Peptide 169.0 pg/mL (5.0-100.0) H 10/13/18 04:35 Total Protein 5.2 gm/dL (6.0-8.3) L 10/13/18 04:35 Albumin 2.7 gm/dL (4.2-5.5) L 10/13/18 04:35 Globulin 2.5 gm/dL 10/13/18 04:35 Albumin/Globulin Ratio 1.1 (1.0-1.8) 10/13/18 04:35 TSH 2.10 uIU/ml (0.34-5.60) 10/10/18 11:30 Urine Source CLEAN C 10/10/18 11:48 Urine Color YELLOW 10/10/18 11:48 Urine Clarity CLEAR (CLEAR) 10/10/18 11:48 Urine pH 5.5 (4.6 - 8.0) 10/10/18 11:48 Ur Specific [place] >= 1.030 (1.005-1.030) 10/10/18 11:48 Urine Protein 100 mg/dL (NEGATIVE) H 10/10/18 11:48 Urine Glucose (UA) 100 mg/dL (NEGATIVE) H 10/10/18 11:48 Urine Ketones NEGATIVE mg/dL (NEGATIVE) 10/10/18 11:48 Urine Blood SMALL (NEGATIVE) H 10/10/18 11:48 Urine Nitrate NEGATIVE (NEGATIVE) 10/10/18 11:48 Urine Bilirubin NEGATIVE (NEGATIVE) 10/10/18 11:48 Urine Urobilinogen 0.2 E.U./dL (0.2 - 1.0) 10/10/18 11:48 Ur Leukocyte Esterase NEGATIVE (NEGATIVE) 10/10/18 11:48 Urine RBC 0-2 /hpf (0-5) H 10/10/18 11:48 Urine WBC 0-2 /hpf (0-5) 10/10/18 11:48 Ur Epithelial Cells OCCASIONAL /lpf (FEW) 10/10/18 11:48 Urine Bacteria NONE SEEN /hpf (NONE SEEN) 10/10/18 11:48 Urine Opiates Screen POSITIVE (NEGATIVE) H 10/10/18 11:48 Urine Methadone Screen NEGATIVE (NEGATIVE) 10/10/18 11:48 Ur Barbiturates Screen NEGATIVE (NEGATIVE) 10/10/18 11:48 Ur Tricyclics Screen NEGATIVE (NEGATIVE) 10/10/18 11:48 Ur Phencyclidine Scrn NEGATIVE (NEGATIVE) 10/10/18 11:48 Amphetamines Screen NEGATIVE (NEGATIVE) 10/10/18 11:48 U Methamphetamines Scrn NEGATIVE (NEGATIVE) 10/10/18 11:48 U Benzodiazepines Scrn NEGATIVE (NEGATIVE) 10/10/18 11:48 U Cocaine Metab Screen NEGATIVE (NEGATIVE) 10/10/18 11:48 U Cannabinoids Screen POSITIVE (NEGATIVE) H 10/10/18 11:48 - Physical Exam Vitals and I&O: Vital Signs Temp 98.0 F 10/14/18 12:00 Pulse 66 10/14/18 12:00 Resp 18 10/14/18 12:00 BP 115/50 10/14/18 12:00 Pulse Ox 97 10/14/18 12:00 Intake & Output 10/13/18 10/14/18 10/14/18 18:59 06:59 18:59 Intake Total 250 Balance 250 Weight (lbs) 56.245 kg Intake: Oral 250 Other: # Voids 2 Weight Source Bedscale Active Medications: Current Medications Acetaminophen (Tylenol 650mg/20.3ml Suspension) 650 mg GT Q4HR PRN PRN Reason: Mild Pain 1-3/ Temp above 100 Stop: 12/09/18 15:09 Last Admin: 10/11/18 01:46 Dose: 650 mg Acetaminophen/Hydrocodone Bitart ([place] 5mg/325mg) 1 tab GT Q6H PRN PRN Reason: Pain (Moderate) Stop: 12/09/18 15:09 Last Admin: 10/14/18 09:00 Dose: 1 tab Albuterol Sulfate (Albuterol 2.5mg/3ml Neb Ud) 2.5 mg HHN Q2HRT PRN PRN Reason: Shortness of Breath or Wheeze Stop: 12/09/18 15:12 Amlodipine Besylate (Norvasc) 5 mg GT DAILY NI Stop: 12/10/18 08:59 Last Admin: 10/14/18 09:01 Dose: 5 mg Artificial Tears (Artificial Tears Ophth Soln) 2 drop EACH EYE Q6H PRN PRN Reason: DRY EYES Stop: 12/09/18 15:09 Last Admin: 10/14/18 09:02 Dose: 2 drop Bisacodyl (Dulcolax 10 Mg Supp) 10 mg RC DAILY PRN PRN Reason: Constipation Stop: 12/09/18 15:09 Diphenhydramine HCl (Benadryl) 50 mg GT HS PRN PRN Reason: Itching Stop: 12/09/18 15:09 Ferrous Sulfate (Iron) 325 mg PO TID NI Stop: 12/12/18 13:59 Last Admin: 10/14/18 09:02 Dose: 325 mg Insulin Aspart (Novolog) 0 units SUBQ ACHS [facility]; Protocol Stop: 12/09/18 16:29 Last Admin: 10/14/18 11:38 Dose: Not Given Ipratropium [place] (Atrovent Neb 0.5mg/2.5ml) 0.5 mg HHN Q2HRT PRN PRN Reason: Shortness of Breath or Wheeze Stop: 12/09/18 15:12 Lorazepam (Ativan) 0.5 mg GT Q4HR PRN; Protocol PRN Reason: Anxiety Stop: 12/09/18 15:09 Magnesium Hydroxide (Milk Of Magnesia) 30 ml GT HS PRN PRN Reason: Constipation Stop: 12/09/18 15:09 Mirtazapine (Remeron) 7.5 mg GT HS [facility]; Protocol Stop: 12/09/18 20:59 Last Admin: 10/13/18 20:53 Dose: 7.5 mg Ondansetron HCl (Zofran) 4 mg IV Q8H PRN PRN Reason: Nausea / Vomiting Stop: 12/09/18 15:12 Pantoprazole Sodium (Protonix) 40 mg GT QDAC [facility] Stop: 12/10/18 07:29 Last Admin: 10/14/18 06:41 Dose: 40 mg Risperidone (Risperdal) 1 mg GT BID [facility]; Protocol Stop: 12/09/18 16:59 Last Admin: 10/14/18 09:02 Dose: 1 mg Sodium Chloride ([place] Nasal [place]) 45 spr NS BID [facility] Stop: 12/09/18 16:59 Last Admin: 10/14/18 09:02 Dose: 45 spr Valproate Sodium (Depakene) 250 mg GT BID [facility]; Protocol Stop: 12/09/18 16:59 Last Admin: 10/14/18 09:00 Dose: 250 mg Zolpidem Tartrate (Ambien) 5 mg GT HS PRN PRN Reason: Insomnia Stop: 12/09/18 15:09 General: weak, disheveled, thin HEENT: NC/AT, PERRLA, EOMI Neck: Supple, No JVD Lungs: congested, wheezing Cardiovascular: RRR, Normal S1, Normal S2 Abdomen: soft, thin, +GT Extremities: excoriation, contracture Neurological: no change, disorganized - Procedures Procedures: Procedures Procedure Code Date STELLA MUSC/FASCIA 20 SQ CM/< 55835 08/27/13 OTHER FASCIECTOMY 83.44 08/27/13 Internal Medicine Assmt/Plan - Assessment Assessment: ASSESSMENT AND PLAN: Increasing confusion, hypertension, electrolyte imbalance, renal insufficiency, diabetes, chronic obstructive pulmonary disease, bilateral below-knee amputations, hypercholesterolemia, status post pacer. - Plan Plan: Continue the patient on IV hydration. We will refer the patient to Psychiatry as well as GI. We will repeat her medications. We will refer the patient to wound care as well. We will continue to monitor the patient closely. gt removed will monitor h and h placement pending co being weak--refer to PT Nutritional Asmnt/Malnutr-PDOC - Dietary Evaluation Malnutrition Findings (Please click <Entered> for more info): Nutritional Asmnt/Malnutrition Start: 10/12/18 15: 36 Text: Status: Complete Freq: Protocol: Document 10/12/18 15:39 LCHENG (Rec: 10/12/18 15:52 LCHENG [email or web address]) Nutritional Asmnt/Malnutrition Patient General Information Nutritional Screening High Risk Diagnosis failure to thrive, inceased confusion Pertinent Medical Hx/Surgical Hx HTN, DM, CHF, CVA/TIA, arthiris, demtnia, depression, bipolar Subjective Information Pt seen ambulatory on wheelchair in the hallway, alert, bilateral BKA noted. Per nurse, pt had Gtube 2-3 months aga and removed on d/t pt tolerated oral meals well. Pt was on clear liquid when admitted and diet advanced to bland/soft at lunch today. Pt stated it was a good lunch. Noticed pt has missing teeth. Pt denied chewing difficulty on current diet. Adj BMI 18.1 considering bi BKA. Current Diet Order/ Nutrition Support bland/soft Pertinent Medications iron, remeron, protonix, nacl 0.9% Pertinent Labs 10/12 POC 114 10/11 POC 151 10/10 BUN 36, Cl 111, Cr 1.4, Glucose 127, ALb 3.5 Nutritional Hx/Data Height 1.85 m Height (Calculated Centimeters) 185.4 Current Weight (lbs) 55.338 kg Weight (Calculated Kilograms) 55.3 Weight (Calculated Grams) 57824.3 [place] Body Weight 162 Body Mass Index (BMI) 16.0 GI Symptoms GI Symptoms None Last BM 10/10 Difficult in: None Skin Integrity/Comment: skin tear to R/L upper arm, ulceration to right/left thigh Current %PO Good (75-100%) Estimated Nutritional Goals BEE in Kcals: Using Current wt Calories/Kcals/Kg 30-35 Kcals Calculated 0806-2385 Protein: Using Current wt Protein g/k.2 Protein Calculated 66 Fluid: ml 1650-1925ml (1ml/kcal) Nutritional Problem No current Nutrition Prob Problem N/A Malnutrition Alert Is there a minimum of two criteria No selected? Query Text:Check all the applicable criteria. A minimum of two criteria are recommended for diagnosis of either severe or non-severe malnutrition. Malnutrition Related to Morbid Obesity Malnutrition related to morbid obesity No Intervention/Recommendation Comments 1. Continue with bland/soft diet as ordered. 2. Monitor PO intake, wt, labs and skin integrity 3. F/U as moderate risk in 3-5 days, 1/3-1/5 Expected Outcomes/Goals Expected Outcomes/Goals 1. PO intake to meet at least 75% of nutritional needs. 2. Wt stability, skin to remain intact, labs to approach WNL.
--- NOTE | 2018-10-14 23:32 | Progress Notes ---
DATE: 10/14/2018 SUBJECTIVE: Staff was spoken to. The patient is interviewed. Mood is noted to be irritable. Affect is constricted. Insight and judgment are noted to be still impaired. Impulse control is noted to be poor. The patient is getting easily angry and upset. Coping skills are noted to be extremely poor at this time. ASSESSMENT: The patient is still impulsive and having mood swings. PLAN: To continue the patient with the supportive therapy and followup. JOB# [id number]
[2018-10-15 06:08] LABS: FOLIC ACID 13.7 ng/mL (>3.0)
[2018-10-15] MEDS: Pantoprazole 40 mg/Packet GT SCH (06:38)
[2018-10-15] MEDS: INSULIN ASPART, RECOMBINANT 100 UNITS/ML SUBQ SCH (06:46)
[2018-10-15] MEDS: Multivitamin w/ Minerals Tab GT SCH (08:14)
[2018-10-15] MEDS: Ferrous Sulfate 325 MG TAB PO SCH (08:16)
[2018-10-15] MEDS: Saline 0.65% Nasal Spray NS SCH (08:18)
[2018-10-15] MEDS: Hydrocodone/APAP 5mg/325mg Tab GT PRN (08:18)
[2018-10-15] MEDS: Polyvinyl Alcohol Ophth Soln 15 mL Bottle EACH EYE PRN (08:19)
--- NOTE | 2018-10-15 20:59 | Progress Notes ---
DATE: 10/15/2018 SUBJECTIVE: Staff was spoken to. The patient is interviewed. Mood is noted to be less irritable, but the patient is reluctant to comply with any of the medication. The patient is currently on 250 mg of the valproic acid via the G-tube along with 1 mg twice a day with Risperdal and 7.5 mg of the mirtazapine at night time. The patient has been able to tolerate. No side effects to the medications are noted. ASSESSMENT: The patient's mood swings are coming under control. PLAN: To continue the patient with the supportive therapy and followup. JOB# [id number]
== END 2018-10-15 11:35 | disposition home or self-care (01) | DRG 640 ==
LOC: ER 10:40 → MSI 13:15
PROVIDERS: ADMIT Internal Medicine; ATTEND Internal Medicine
PROC: 0DP6XUZ Removal of Feeding Device from Stomach, External Approach (ICD-10-PCS; principal; 2018-10-12)
DX: R62.7 Adult failure to thrive (principal); E43 Unspecified severe protein-calorie malnutrition; F31.60 Bipolar disorder, current episode mixed, unspecified; Z68.1 Body mass index [BMI] 19.9 or less, adult; I13.0 Hypertensive heart and chronic kidney disease with heart failure and stage 1 through stage 4 chronic kidney disease, or unspecified chronic kidney disease; N28.9 Disorder of kidney and ureter, unspecified; E87.8 Other disorders of electrolyte and fluid balance, not elsewhere classified; E11.22 Type 2 diabetes mellitus with diabetic chronic kidney disease; N18.2 Chronic kidney disease, stage 2 (mild); J44.9 Chronic obstructive pulmonary disease, unspecified; E78.5 Hyperlipidemia, unspecified; G89.29 Other chronic pain; I50.9 Heart failure, unspecified; M19.90 Unspecified osteoarthritis, unspecified site; F03.90 Unspecified dementia, unspecified severity, without behavioral disturbance, psychotic disturbance, mood disturbance, and anxiety; F17.210 Nicotine dependence, cigarettes, uncomplicated; D64.9 Anemia, unspecified; F29 Unspecified psychosis not due to a substance or known physiological condition; E78.00 Pure hypercholesterolemia, unspecified; R13.10 Dysphagia, unspecified; Z89.512 Acquired absence of left leg below knee; Z89.511 Acquired absence of right leg below knee; Z88.1 Allergy status to other antibiotic agents; Z95.0 Presence of cardiac pacemaker; Z91.040 Latex allergy status; Z86.73 Personal history of transient ischemic attack (TIA), and cerebral infarction without residual deficits
CPT/HCPCS: 36415-UA; 71045-TC; 80053-TC; 80307; 81001-TC; 82140-TC; 82607-90; 82746-90; 82948-90; 83036-90; 83540-90; 83550-90; 83880-TC; 84443-TC; 84484-TC; 85007-TC; 85025-TC; 85610-TC; 94760; J1815; J7030; Z7610